=== PATIENT | male | born 1940 | race Caucasian/White ===

== ENCOUNTER 2016-12-29 09:28 | Day surgery (SDC) | payer MEDICARE, OTHER ==
[~2016-12-29] VITALS: Ht 185.4 cm; Wt 98.0 kg
[~2016-12-29 09:28] MED LIST: AML2.5T PO; APIX5TAB PO; ASP81TEC PO; ATOR40TA70 PO; ATOR80TA2 PO; CEPH500C PO; CHOL100011 PO; CHOL200014 PO; CIPR-225 PO; CLIN300C11 PO; CYAN100053 IJ; DILT240C90 PO; DONE10TA41 PO; GABA-488 PO; HYDR-3730 PO; HYDR-3820 PO; MAGN400C PO; MAGN400T6 PO; MEMA10TA PO; METF500T4 PO; METF850T PO; METF850T2 PO; METFOR850T PO; MTF500T PO; MULT-642 PO; MUPI22OI2 TOP; MV-M1TAB38 PO; PENT400T2 PO; PREG50C PO; PREG50CA2 PO; SITA100T PO; SULF1TAB35 PO; TAMS0.4C2 PO; TEMA15CA PO; TMZP15C PO; TRAM50TA2 PO; ZOLP5TAB7 PO
--- OUTSIDE RECORDS SUMMARY | 2016-12-29 09:31 | XMS REPORT | Continuity of Care Document ---
Author Author [facility] Organization [facility] Address Unknown Phone Unavailable Care Team Providers Care Well Driller Name Role Phone LAINE WEBER DO PCP Insurance Providers Payer Name Policy Number Subscriber Name Relationship Wps Medicare [id number] Martine Ragsdale 17 Self / Same As Patient [facility] [id number] Diana Ragsdale A 01 Advance Directives Directive Response Recorded Date/Time Advance Directives Yes 04/10/15 8:39am Health Care Power of Math Interventionist Yes 04/10/15 8:39am Organ Donor No 04/10/15 8:39am Resuscitation Status Full Code 04/10/15 8:39am Problems No known problems or medical conditions. Medications Medication Dose Route Sig Days/Qty Instructions Order Date Discontinued Date Status Atorvastatin Calcium 40 Mg PO 11/21/12 01/21/14 Discontinued Metformin HCl (Glucophage) 1 Each PO THREE TIMES DAILY WITH MEALS 06/2612/31/13 Discontinued Magnesium Oxide 400 Mg PO DAILY 11/21/12 01/21/14 Discontinued Donepezil Hcl 10 Mg PO BEDTIME 11/21/12 Active Sitagliptin Phosphate 100 Mg PO DAILY 11/21/12 Active Temazepam 15 Mg PO BEDTIME 11/21/12 Active Aspirin 81 Mg PO DAILY 11/21/12 Active Pregabalin 50 Mg PO BEDTIME 12/31/13 Active Memantine 1 Each PO TWICE A DAY 12/31/13 01/21/14 Discontinued Metformin HCl 850 Mg PO THREE TIMES A DAY 12/31/13 01/21/14 Discontinued Metformin HCl 850 Mg PO DAILY TAKES 1 (850MG) TABLET EVERY MORNING AND TAKES 2 (850MG) TABLETS AT 01/21/14 04/02/15 Discontinued Amlodipine Besylate 2.5 Mg PO DAILY 01/21/14 Active Cholecalciferol 1,000 Unit PO TWICE A DAY 01/21/14 04/02/15 Discontinued Cyanocobalamin (Vitamin B 12 Injecting) 1,000 Mcg IJ MONTHLY ON 01/21/14 04/02/15 Discontinued Metformin HCl 850 Mg PO THREE TIMES A DAY 01/21/14 Active Atorvastatin Calcium 40 Mg PO DAILY 01/21/14 Active Magnesium Oxide 400 Mg PO DAILY 01/21/14 Active Pentoxifylline 400 Mg PO THREE TIMES A DAY 01/21/14 Active Memantine 10 Mg PO TWICE A DAY 04/02/15 Active Hydrocodone/Acetaminophen 1 Each PO EVERY 4HRS For Pain 28 Qty Active Social History Social History Problem Response Recorded Date/Time Alcohol Use Denies Use 04/10/2015 8:39am Recreational Drug Use No 04/10/2015 8:39am Recent Foreign Travel No 04/10/2015 8:39am Smoking Status Never a Smoker 04/10/2015 8:40am Query Response Start Date Stop Date Smoking Status Never a Smoker Hospital Discharge Instructions No hospital discharge instructions. Plan of Care No plan of care. Functional Status No functional status results. Allergies, Adverse Reactions, Alerts Allergen Type Severity Reaction Status Last Updated No Known Allergies Allergy Unknown Active 01/03/06 Immunizations Name Given Type Date of Pneumonia Vaccine 01/12/13 Historical Date of Influenza Vaccine 07/15/13 Historical Vital Signs Acute Vital Signs Vital Response Date/Time Temperature (Fahrenheit) 96.7 degrees F (97.6 - 99.5) Temperature (Calculated Celsius) 35.95510 degrees C (36.4 - 37.5) Temperature Source Temporal Pulse Rate (adult) 63 bpm (60 - 90) Respiratory Rate 18 bpm (12 - 24) O2 Sat by Pulse Oximetry 96 % (88 - 100) Blood Pressure 143/85 mm Hg Pain Pain Intensity 0 Height (Feet) 6 feet Height (Inches) 1.00 inches Height (Calculated Centimeters) 185.498207 cm Weight (Pounds) 213 pounds Weight (Calculated Grams) 05706.176 gm Weight (Calculated Kilograms) 96.099202 kilograms Calculated BMI 24.61 Results Laboratory Results Test Name Result Units Flags Reference Collection Date/Time Result Date/ Time Comments Glucometer 134 MG/DL H 70-110 04/10/2015 9:29am 04/10/2015 9:44am Procedures Procedure Status Date Provider(s) Correction of hammer toe completed 04/10/15 KEVIN DE LEON DPM Encounters Encounter Location Date/Time Registered Surgical Day Care [facility] 04/10/15 7:30am Registered Clinic [facility] 04/02/15 11:30am
--- OUTSIDE RECORDS SUMMARY | 2016-12-29 09:31 | XMS REPORT | Continuity of Care Document ---
Author Author [facility] Organization [facility] Address Unknown Phone Unavailable Care Team Providers Care Casing Soaker Name Role Phone LAINE WEBER DO PCP Insurance Providers Payer Name Policy Number Subscriber Name Relationship Wps Medicare [id number] Martine Ragsdale 17 Self / Same As Patient [facility] [id number] Diana Ragsdale A 01 Advance Directives Directive Response Recorded Date/Time Advance Directives Yes 04/10/15 8:39am Health Care Power of Labor Arbitrator Hearing Office Yes 04/10/15 8:39am Organ Donor No 04/10/15 [...] F (97.6 - 99.5) Temperature (Calculated Celsius) 35.79787 degrees C (36.4 - 37.5) Temperature Source Temporal Pulse Rate (adult) 63 bpm (60 - 90) Respiratory Rate 18 bpm (12 - 24) O2 Sat by Pulse Oximetry 96 % (88 - 100) Blood Pressure 143/85 mm Hg Pain Pain Intensity 0 Height (Feet) 6 feet Height (Inches) 1.00 inches Height (Calculated Centimeters) 185.650162 cm Weight (Pounds) 213 pounds Weight (Calculated Grams) 18109.176 gm Weight (Calculated Kilograms) 96.749384 kilograms Calculated BMI 24.61 Results Laboratory Results Test Name Result Units Flags Reference Collection Date/Time Result Date/ Time Comments Glucometer 134 MG/DL H 70-110 04/10/2015 9:29am 04/10/2015 9:44am Procedures Procedure Status Date Provider(s) Correction of hammer toe completed 04/10/15 KEVIN DE LEON DPM Encounters Encounter Location Date/Time Registered Surgical Day Care [facility] 04/10/15 7:30am Registered Clinic [facility] 04/02/15 11:30am
[2016-12-29] MEDS ORDERED: LIDOCAINE 1% INJ 20 ML (XYLOCAINE) VIAL ONE (09:45)
[2016-12-29 10:04] VITALS: BP 138/76
--- NOTE | 2016-12-30 13:52 | DISCHARGE SUMMARY ---
PROCEDURE PHYSICIAN: JAMIL ZEPEDA REVEAL DEVICE IMPLANTATION REPORT DATE OF PROCEDURE: 12/29/2016 REFERRING PHYSICIAN: Dr. Aceves BRIEF HISTORY: Mr. Castellano is a 76-year-old just gentleman with history of paroxysmal atrial fibrillation/flutter. He had had ablation done in the past. The patient was seen in the office, appeared to have frequent palpitation episode of atrial fibrillation and short runs. A Holter monitor was done in the past. I am planning to proceed with Reveal device implantation with close monitoring for the atrial fibrillation burden with consideration to referral again for another ablation. PROCEDURE NOTE: After explaining the procedure to the patient, all pros and cons were explained. All questions were answered. No sedation was needed. The patient was placed in the holding area. Local anesthesia applied. A small skin incision was made and then a Reveal Linq device was implanted subcutaneously [employer] with serial number [id number]. Manual pressure applied Dermabond applied, hemostasis achieved. No complication noted. CONCLUSION: Successful reveal device implantation with no complications FINAL DIAGNOSIS: 1. Paroxysmal atrial fibrillation. 2. Coronary artery disease. 3. Hypertension. 4. Hyperlipidemia, Job ID: [id number] Dictated Date: 12/29/2016 11:25:12 Mold Tooling Technician Date: 12/30/2016 13:50:46/[email or web address]
== END 2016-12-29 13:53 | disposition home or self-care (01) ==
LOC: CATH 09:28
PROVIDERS: ATTEND Internal Medicine Cardiovascular Disease
DX: I48.0 Paroxysmal atrial fibrillation (principal); I25.10 Atherosclerotic heart disease of native coronary artery without angina pectoris; I10 Essential (primary) hypertension; E78.5 Hyperlipidemia, unspecified; E11.9 Type 2 diabetes mellitus without complications; Z79.01 Long term (current) use of anticoagulants; Z79.899 Other long term (current) drug therapy; Z95.1 Presence of aortocoronary bypass graft
CPT/HCPCS: 33282; 82962

== ENCOUNTER 2017-01-28 10:36 | Day surgery (SDC) | payer MEDICARE, OTHER ==
[2017-01-28] VITALS (11 sets, daily range): BP systolic 126–157; BP diastolic 65–83
[~2017-01-28] VITALS: Ht 185.4 cm; Wt 98.0 kg
--- OUTSIDE RECORDS SUMMARY | 2017-01-28 10:40 | XMS REPORT | Continuity of Care Document ---
Author Author [facility] Organization [facility] Address Unknown Phone Unavailable Care Team Providers Care Bit Setter Name Role Phone PCP Unavailable Source Comments Some departments are not documenting in the electronic medical record. If you do not see the information that you expected, contact Release of Information in the Health Information Management department at [phone] for further assistance in locating additional records.[facility] Active Allergies and Adverse Reactions No Known Allergies Current Medications Not on file Active Problems Not on file Most Recent Encounters Date Type Specialty Providers Description 01/27/2017 Documentation Cardiology Keesha Camacho Records Request - Sindhu Meng MD/ [facility] in [place], [place] (F) [phone] 01/27/2017 Documentation Cardiology Keesha Camacho Records Request - Sonia Aceves MD/ [facility] (F) [phone] 01/27/2017 Patient Profile Cardiology Keesha Camacho New Patient - A-Fib/flutter Social History Tobacco Use Types Packs/Day Years Used Date Never Smoker Smokeless Tobacco: Never Used Alcohol Use Drinks/Week oz/Week Comments No Plan of Care Date Type Specialty Providers Description 02/09/2017 Appointment Cardiology Dalton Holbrook MD [address] [facility] [address] [place] [address] [phone] (Fax) 02/09/2017 Appointment Cardiology Dalton Holbrook MD [address] [facility] [address] [place] [address] [phone] (Fax) Health Maintenance Due Date Last Done Comments Physical (Comprehensive) 1947 Exam Pertussis Vaccine 1950 Tetanus Vaccine 1956 Shingles Vaccine 1999 Prevnar/Pneumovax (#1) 2004 Influenza Vaccine 07/15/2017 Results from Last 3 Months Not on file
--- OUTSIDE RECORDS SUMMARY | 2017-01-28 10:41 | XMS REPORT | Continuity of Care Document ---
Author Author [facility] Organization [facility] Address Unknown Phone Unavailable Care Team Providers Care Kettle Coordinator Name Role Phone PCP Unavailable Source Comments Some departments are not documenting in the electronic medical record. If you do not see the information that you expected, contact Release of Information in the Health Information Management department at [phone] for further assistance in locating additional records.[facility] Active Allergies and Adverse Reactions No Known Allergies Current Medications Not on file Active Problems Not on file Most Recent Encounters Date Type Specialty Providers Description 01/27/2017 Documentation Cardiology Keesha Camacho Records Request - Sindhu Meng MD/ [facility] in [place], [place] (F) [phone] 01/27/2017 Documentation Cardiology Keesha Camacho Records Request - Sonia Aceves MD/ [facility] (F) [phone] 01/27/2017 Patient Profile Cardiology Keesha Camacho New Patient - A-Fib/flutter Social History Tobacco Use Types Packs/Day Years Used Date Never Smoker Smokeless Tobacco: Never Used Alcohol Use Drinks/Week oz/Week Comments No Plan of Care Date Type Specialty Providers Description 02/09/2017 Appointment Cardiology Dalton Holbrook MD [address] [facility] [address] [place] [address] [phone] (Fax) 02/09/2017 Appointment Cardiology Dalton Holbrook MD [address] [facility] [address] [place] [address] [phone] (Fax) Health Maintenance Due Date Last Done Comments Physical (Comprehensive) 1947 Exam Pertussis Vaccine 1950 Tetanus Vaccine 1956 Shingles Vaccine 1999 Prevnar/Pneumovax (#1) 2004 Influenza Vaccine 07/15/2017 Results from Last 3 Months Not on file
[2017-01-28] MEDS ORDERED: NS IV 1000 ML 1,000 ML ONE (10:58)
[2017-01-28] MEDS ORDERED: LIDOCAINE 1% INJ 20 ML (XYLOCAINE) VIAL ONE (10:58)
[2017-01-28] MEDS ORDERED: HEParin (CATH LAB) 2,000 ML IV ONE (10:59)
[2017-01-28 11:40] LABS: MEAN PLATELET VOLUME 9.2 FL (7.4-10.4); RED BLOOD COUNT 4.61 10^6/uL (4.35-5.85); RED CELL DISTRIBUTION WIDTH 14.4 % (10.0-14.5); WHITE BLOOD COUNT 13.2 10^3/uL (4.3-11.0)
[2017-01-28 11:43] LABS: BILIRUBIN,URINE NEGATIVE (NEGATIVE); KETONES,URINE NEGATIVE (NEGATIVE); LEUKOCYTE ESTERASE ,URINE NEGATIVE (NEGATIVE); NITRITE,URINE NEGATIVE (NEGATIVE); PH,URINE 5 (5-9); PROTEIN,URINE NEGATIVE (NEGATIVE); UROBILINOGEN,URINE NORMAL (NORMAL)
[2017-01-28 11:54] LABS: PROTHROMBIN TIME PATIENT 12.4 SEC (12.2-14.7)
[2017-01-28] MEDS ORDERED: NS IV 1000 ML 1,000 ML IV SCH ×2 (11:55→13:28)
--- NOTE | 2017-01-28 11:56 | Diagnostic Imaging Report ---
Portable upright radiograph of the chest. INDICATION: Peripheral arterial disease. FINDINGS: The lungs are clear. The heart size is mildly prominent. CABG changes and sternotomy wires are seen. There is a lasting room machine operator projecting over the left chest wall. No effusion or pneumothorax. IMPRESSION: No acute process. Dictated by: Dictated on workstation # [id number]
[2017-01-28 11:59] LABS: SQUAMOUS EPITHELIAL CELL,UR RARE /HPF
[2017-01-28 12:03] LABS: ALANINE AMINOTRANSFERASE 17 U/L (0-55); ANION GAP 10 MMOL/L (5-14); ASPARTATE AMINO TRANSFERASE 17 U/L (5-34); BILIRUBIN,TOTAL 0.4 MG/DL (0.1-1.0); BLOOD UREA NITROGEN 11 MG/DL (7-18); BUN/CREATININE RATIO 11; CALCIUM 8.9 MG/DL (8.5-10.1); CARBON DIOXIDE 23 MMOL/L (21-32); CHLORIDE 107 MMOL/L (98-107); CHOLESTEROL 183 MG/DL (< 200); CREATININE SERUM 0.99 MG/DL (0.60-1.30); DIRECT LDL 134 MG/DL (1-129); GFR ESTIMATED > 60; GLUCOSE 102 MG/DL (70-105); POTASSIUM 4.2 MMOL/L (3.6-5.0); SODIUM 140 MMOL/L (135-145); TOTAL PROTEIN 6.6 G/DL (6.4-8.2); TRIGLYCERIDES 58 MG/DL (<150); VLDL CHOLESTEROL 12 MG/DL (5-40)
[2017-01-28] MEDS ORDERED: CHOL10007 PO ×2 (12:16)
[2017-01-28] MEDS ORDERED: MAGN500T PO (12:16)
[2017-01-28] MEDS ORDERED: CNC1KV IJ (12:16)
[2017-01-28] MEDS ORDERED: HYDR-3820 PO (12:16)
[2017-01-28] MEDS ORDERED: APIX5TAB PO (12:16)
[2017-01-28] MEDS ORDERED: DILT240C90 PO (12:16)
[2017-01-28] MEDS ORDERED: INSU100I29 SQ (12:16)
[2017-01-28] MEDS ORDERED: METF500T8 PO (12:16)
[2017-01-28] MEDS ORDERED: fentaNYL INJECTION 100 MCG/2 ML AMP ONE (12:22)
[2017-01-28] MEDS ORDERED: MIDAZOLAM 5 MG/5 ML (VERSED) VIAL ONE (12:22)
--- NOTE | 2017-01-28 12:38 | Cardiac Procedure Note-CS/ASA ---
Pre-Procedure Note Pre-Op Procedure Note H&P Reviewed The H&P was reviewed, patient examined and no changes noted. Date H&P Reviewed: Jan 28, 2017 Time H&P Reviewed: 12:38 Conscious Sedation Pre-Proced Time Reviewed: 12:38 ASA Class: 3 Airway Mallampati Classification: ([place] appropriate class) I. II. III, IV Lungs Heart ASA score ASA 1: a normal healthy patient ASA 2: a patient with a mild systemic disease (mid diabetes, controlled hypertension, obesity x ASA 3: a patient with a severe systemic disease that limits activity (angina , COPD, prior Myocardial infarction) ASA 4: a patient with an incapacitating disease that is a constant threat to life (CHF, renal failure) ASA 5: a moribund patient not expected to survive 24 hrs. (ruptured aneurysm) ASA 6: a declared brain patient whose organs are being harvested. For emergent operations, add the letter E after the classification Grade 3 Sedation Plan: Analgesia, Amnesia, Plan communicated to team members, Discussed options with patient/fam, Discussed risks with patient/fam Note The patient is an appropriate candidate to undergo the planned procedure, sedation, and anesthesia. The patient immediately re-assessed prior to indication. JAMIL ZEPEDA MD Jan 28, 2017 12:38
[2017-01-28] MEDS ORDERED: HEParin 1000 UNIT/ML (10ML VIAL) FOR BOLUS ONE (13:03)
[2017-01-28] MEDS ORDERED: NITROGLYCERIN DRIP 25 MG/D5W 250 ML IV ONE (13:12)
[2017-01-28] MEDS ORDERED: PATIENT MAY USE OWN MEDS, ALL PO SCH (13:30)
--- NOTE | 2017-01-28 13:32 | Discharge Inst-Post CATH ---
Discharge Inst-CATH Post Cardiac Cath D/C Inst Follow Up/Plan Hold Metformin for [address] Meng's office in 2-4 weeks CARDIAC CATH DISCHARGE INSTRUCTIONS *Hold Metformin for 48 hours post heart cath. ACTIVITY * Go Home directly and rest. * Limit activity of the leg (or wrist if it was used) for 7 days including aerobics, swimming, jogging, bicycling, etc. * Restrict stair-climbing for 7 days if possible, if not, climb up with your non -cath leg, then bring together on the same step. * Avoid lifting, pushing, pulling or excessive movement of the affected extremity for 7 days. * Customary sexual activity may be resumed after 2 days-use caution not to use a position that strains or causes pain to the affected extremity. * No driving for 24 hours. * NO SMOKING. * Avoid straining for bowel movements for 7 days. * Gentle walking on level ground is allowed. * Returning to work will depend on the type of procedure and the results. Your doctor will discuss this with you. CALL YOUR DOCTOR FOR ANY OF THE FOLLOWING: *If bleeding from the puncture site occurs- Apply gentle pressure to site with clean cloth and call your doctor or EMS. * If a knot or lump forms under the skin, increases in size, or causes pain. * If bruising appears to be worsening or moving further down your leg instead of disappearing. * Temperature above 101 F. CARE OF YOUR GROIN INCISION; * Bruising or purple discoloration of the skin near the puncture site is common. * You may shower only, no bathtub bathing for 5 days. Be careful to avoid slipping as your leg may feel stiff. * If a closure device was used on your femoral artery, please see the attached guide regarding care of the device and your leg. * REMOVE the dressing from your groin the next day after your procedure in the shower. CARE OF YOUR WRIST INCISION; * Bruising or purple discoloration of the skin near the puncture site is common. * You may shower. * DO NOT submerge wrist. * Remove dressing in 24 hours. JAMIL MENG MD Jan 28, 2017 13:32
--- NOTE | 2017-01-28 21:43 | DISCHARGE SUMMARY ---
REFERRING PHYSICIAN: Dr. Sonia Aceves INDICATION: Peripheral arterial disease. BRIEF HISTORY: Mr. Castellano is a 76-year-old gentleman with peripheral arterial disease and coronary artery disease, has been having lower extremity pain which has been worsening. He had a borderline abnormal ROSELIA. I decided to proceed with peripheral angiogram, possible angioplasty. PROCEDURE NOTE: After explaining the procedure to the patient, all pros and cons were explained, all questions were answered. I placed a 6-Czech sheath in the left femoral artery. Pigtail catheter advanced to the abdominal aorta. Abdominal aortogram with runoff was done. Then I used a crossover catheter and then it exchanged it into a straight catheter. The straight catheter was advanced to the popliteal artery in the right lower extremity and I performed 3 different angiogram to the right lower extremity below the trifurcation to evaluate the anatomy. Then I flushed straight catheter with saline and evaluated pressure pullback to the iliac artery. At that point, I did another runoff to the left lower extremity to evaluate the arteries below the knee. I performed the runoff twice. At that point, I finished the procedure, sheath was removed. Mynx device deployed. Hemostasis achieved. FINDINGS: HEMODYNAMICS: The right lower extremity pullback popliteal artery pressure was 116/53, mid SFA was 125/53, common femoral 130/56. ANATOMY: Abdominal aortogram with bilateral runoff and the selective angiogram was done separately. Findings suggestive of moderate disease in the SFA bilaterally. Severe disease in the anterior tibial and posterior tibial in the right lower extremity at multiple segments, getting filled by collaterals. On the left side, also occlusion of the anterior and posterior tibial, getting filled by collaterals. The decision was made to treat it medically. IN CONCLUSION: 1. Severe disease involving multiple segments in the anterior and posterior tibial of the right lower extremity, the popliteal artery is patent and filling by collaterals the distal arteries. The patient is having cramps in the calf but no acute ischemic foot. I will try conservative management. 2. Acute severe disease at the anterior and posterior tibial in the left lower extremity at multiple segments, getting filled by collateral from the popliteal artery. 3. Moderate disease in the SFA bilaterally. 4. Normal abdominal aorta and bifurcation with no dissection or aneurysm. DISCUSSION AND RECOMMENDATION: Mr. Castellano has significant disease at a long segment, feasible to intervention but the restenosis rate is high. The patient's ROSELIA is suggestive of adequate flow through the collateral of the popliteal artery. I am hesitant to proceed with intervention at this time due to the lack of lack of critical limb ischemia. If the patient develops any ulcer or has critical lymph ischemia, will attempt intervention of those arteries. FINAL DIAGNOSES: 1. Peripheral arterial disease. 2. Coronary artery disease. 3. Hypertension. 4. Hyperlipidemia. 5. Diabetes mellitus. Job ID: [id number] Dictated Date: 01/28/2017 13:41:49 Deck Hand Date: 01/28/2017 21:42:06/[email or web address] BE
== END 2017-01-28 18:10 | disposition home or self-care (01) ==
LOC: CATH 10:36 → ICU 14:33 → CATH 18:10
PROVIDERS: ATTEND Internal Medicine Cardiovascular Disease
DX: I70.213 Atherosclerosis of native arteries of extremities with intermittent claudication, bilateral legs (principal); I25.10 Atherosclerotic heart disease of native coronary artery without angina pectoris; I10 Essential (primary) hypertension; E78.5 Hyperlipidemia, unspecified; E11.9 Type 2 diabetes mellitus without complications; Z95.1 Presence of aortocoronary bypass graft; Z79.899 Other long term (current) drug therapy; Z79.01 Long term (current) use of anticoagulants; Z79.84 Long term (current) use of oral hypoglycemic drugs
CPT/HCPCS: 36247; 36415; 71010; 75630; 75774; 80053; 80061; 81000; 85027; 85610; 85730; 87081

== ENCOUNTER → 2017-02-03 | Outpatient (CLI) | payer MEDICARE, OTHER ==
[~2017-02-03] MED LIST changes: +CHOL10007 PO; +CNC1KV IJ; +INSU100I29 SQ; +MAGN500T PO; +METF500T8 PO
[2017-02-03 15:20] LABS: BASOPHILS # (AUTO) 0.1 10^3/uL (0.0-0.1); BASOPHILS % (AUTO) 0 % (0-10); EOSINOPHILS # (AUTO) 0.2 10^3/uL (0.0-0.3); EOSINOPHILS % (AUTO) 2 % (0-10); LYMPHOCYTES # (AUTO) 2.8 X 10^3 (1.0-4.0); LYMPHOCYTES % (AUTO) 25 % (12-44); MEAN CORPUSCULAR HEMOGLOBIN 31 PG (25-34); MEAN CORPUSCULAR HGB CONC 33 G/DL (32-36); MEAN CORPUSCULAR VOLUME 92 FL (80-99); MEAN PLATELET VOLUME 8.9 FL (7.4-10.4); MONOCYTES # (AUTO) 1.1 X 10^3 (0.0-1.0); MONOCYTES % (AUTO) 10 % (0-12); NEUTROPHILS # (AUTO) 7.2 X 10^3 (1.8-7.8); NEUTROPHILS % (AUTO) 63 % (42-75); PLATELET COUNT 317 10^3/uL (130-400); RED BLOOD COUNT 4.28 10^6/uL (4.35-5.85); RED CELL DISTRIBUTION WIDTH 14.1 % (10.0-14.5); WHITE BLOOD COUNT 11.4 10^3/uL (4.3-11.0)
[2017-02-03 15:25] LABS: PATH WILL NEED TO REVIEW SMEAR PATH TO REVIEW
[2017-02-03 15:37] LABS: BAND NEUTROPHILS 1 %; BASOPHILS % (MANUAL) 1 %; EOSINOPHILS % (MANUAL) 3 %; LYMPHOCYTES % (MANUAL) 26 %; NEUTROPHILS % (MANUAL) 62 %
== END ==
LOC: LAB 15:01
PROVIDERS: ATTEND Nurse Practitioner Family
DX: D72.828 Other elevated white blood cell count (principal)
CPT/HCPCS: 36415; 85007; 85027; 85045

== ENCOUNTER 2017-04-05 20:25 | Inpatient (IN) | payer MEDICARE, OTHER ==
[~2017-04-05] VITALS: Ht 198.1 cm; Wt 101.6 kg
[2017-04-05] MEDS ORDERED: NS IV 1000 ML 1,000 ML IV ONE (20:53)
[2017-04-05] MEDS ORDERED: ACETAMINOPHEN 500 MG TAB (TYLENOL) PO ONE (21:00)
[2017-04-05 21:24] LABS: INR 1.1 (0.8-1.4); PROTHROMBIN TIME PATIENT 14.3 SEC (12.2-14.7)
[2017-04-05 21:29] LABS: BASOPHILS # (AUTO) 0.1 10^3/uL (0.0-0.1); BASOPHILS % (AUTO) 1 % (0-10); EOSINOPHILS # (AUTO) 0.1 10^3/uL (0.0-0.3); EOSINOPHILS % (AUTO) 1 % (0-10); LYMPHOCYTES % (AUTO) 17 % (12-44); MEAN CORPUSCULAR HEMOGLOBIN 30 PG (25-34); MEAN CORPUSCULAR HGB CONC 33 G/DL (32-36); MEAN CORPUSCULAR VOLUME 90 FL (80-99); MEAN PLATELET VOLUME 9.7 FL (7.4-10.4); MONOCYTES # (AUTO) 1.5 X 10^3 (0.0-1.0); MONOCYTES % (AUTO) 12 % (0-12); NEUTROPHILS # (AUTO) 8.3 X 10^3 (1.8-7.8); NEUTROPHILS % (AUTO) 70 % (42-75); PLATELET COUNT 330 10^3/uL (130-400); RED BLOOD COUNT 4.38 10^6/uL (4.35-5.85); RED CELL DISTRIBUTION WIDTH 14.9 % (10.0-14.5); WHITE BLOOD COUNT 11.9 10^3/uL (4.3-11.0)
[2017-04-05 21:34] LABS: ALBUMIN 3.9 G/DL (3.2-4.5); BILIRUBIN,TOTAL 0.5 MG/DL (0.1-1.0); CALCIUM 8.8 MG/DL (8.5-10.1); CREATININE SERUM 1.18 MG/DL (0.60-1.30); POTASSIUM 3.9 MMOL/L (3.6-5.0); TOTAL PROTEIN 6.7 G/DL (6.4-8.2)
--- NOTE | 2017-04-05 23:15 | ED General ---
General Chief Complaint: Trauma-Non Activation Stated Complaint: FALL Nursing Triage Note: REPORTS PT FELL THIS EVENING OUTSIDE, UNWITNESSED. STATES UNKNOWN IF PT HIT HEAD. PT HAS HAD COLD SYMPTOMS OVER LAST 3 DAYS AND STARTED ANTIBIOTICS YESTERDAY FROM DR ACEVES. TODAY IS EXPERIENCING INCREASING CONFUSION AND WEAKNESS. Nursing Sepsis Screen: Possible Severe Sepsis Risk Source of Information: Patient, Family Exam Limitations: No Limitations History of Present Illness Time Seen by Provider: 20:42 Initial Comments This 76-year-old and is brought to the emergency room accompanied by his with history of a fall outside in the yard. He was found down on the ground by a family member. Patient denies any injury during the fall or any pain at present. He is uncertain if he struck his head. Family reports he has had a cough recently and was started on amoxicillin after seeing Dr. Aceves in the clinic yesterday. They believe he was lying in the yard for 30-45 minutes before being found this evening. They report increased weakness. Temperature on assessment is 100.7. Cough has been present since Tuesday. Patient does not recall hitting his head but he does take Eliquis because of atrial fibrillation. He has dementia at baseline and is not a very reliable historian. Location Injury Occurred: HOME Allergies and Home Medications Allergies Coded Allergies: Brennen Known Allergies (Verified Allergy, Unknown, 01/03/06) Home Medications Apixaban 5 Mg Tablet, 5 MG PO BID, (Reported) Aspirin 81 Mg Tabec, 81 MG PO DAILY, (Reported) Cholecalciferol (Vitamin D3) 1,000 Unit Capsule, 1,000 UNIT PO DAILY, (Reported) Cholecalciferol (Vitamin D3) 1,000 Unit Capsule, 2,000 UNIT PO HS, (Reported) TAKES 2 (1000 UNIT) CAPSULES Cyanocobalamin 1,000 Mcg/Ml Inj, 1,000 MCG IJ MONTHLY, (Reported) Diltiazem HCl 240 Mg Cap.er.24h, 240 MG PO DAILY, (Reported) Donepezil Hcl 10 Mg Tablet, 10 MG PO HS, (Reported) Gabapentin 300 Mg Capsule, 300 MG PO TID, (Reported) Hydrocodone/Acetaminophen 1 Each Tablet, 0.5 TAB PO Q6H PRN for SEVERE PAIN, ( Reported) Insulin Detemir 100 Unit/1 Ml Insuln.pen, 40 UNIT SQ HS, (Reported) Magnesium Oxide 500 Mg Tablet, 500 MG PO DAILY, (Reported) Memantine Hcl 10 Mg Tablet, 10 MG PO BID, (Reported) Multivitamin 1 Each Tablet, 1 TAB PO DAILY, (Reported) Mv-Mn/FA/Vit K/Lycop/Lut/Zeaxa 1 Each Tablet, 1 TAB PO DAILY, (Reported) Pentoxifylline 400 Mg Tablet.sa, 400 MG PO BID, (Reported) Tamsulosin HCl 0.4 Mg Cap.er.24h, 0.4 MG PO 1800, (Reported) Tramadol HCl 50 Mg Tablet, 50 MG PO Q8H PRN for PAIN, (Reported) Zolpidem Tartrate 5 Mg Tablet, 5 MG PO HS, (Reported) Constitutional: see HPI EENTM: no symptoms reported Respiratory: see HPI Cardiovascular: no symptoms reported Gastrointestinal: no symptoms reported Genitourinary: no symptoms reported Musculoskeletal: no symptoms reported Skin: no symptoms reported Psychiatric/Neurological: See HPI Hematologic/Lymphatic: No Symptoms Reported Immunological/Allergic: no symptoms reported Past Bopshko-Tikurc-Pyzpxg Hx Patient Social History Alcohol Use: Denies Use Recreational Drug Use: No Smoking Status: Former Smoker Former Smoker/When Quit: Jan 21, 1986 2nd Hand Smoke Exposure: No Recent Foreign Travel: No Contact w/Someone Who Travel: No Recent Infectious Disease Expo: No Immunizations Up To Date Tetanus Booster (TDap): Less than 5yrs Date of Pneumonia Vaccine: Jul 15, 2015 Date of Influenza Vaccine: Aug 17, 2016 Seasonal Allergies Seasonal Allergies: No Surgeries HX Surgeries: Yes Surgeries: Cardiac, CABG, Eye Surgery Respiratory Hx Respiratory Disorders: No Cardiovascular Hx Cardiac Disorders: Yes Cardiac Disorders: Atrial Fibrillation, Coronary Artery Disease, High Cholesterol, Hypertension, Peripheral Vascular Neurological Hx Neurological Disorders: Yes Neurological Disorders: Dementia Reproductive System Hx Reproductive Disorders: No Sexually Transmitted Disease: No HIV/AIDS: No Genitourinary Hx Genitourinary Disorders: No Genitourinary Disorders: Benign Prostatic Hyperpl, Prostate Problems Gastrointestinal Hx Gastrointestinal Disorders: No Musculoskeletal Hx Musculoskeletal Disorders: Yes (SPINAL STENOSIS, lumbar region) Musculoskeletal Disorders: Chronic Back Pain Endocrine Hx Endocrine Disorders: Yes Endocrine Disorders: Diabetes, Insulin dep HEENT HX ENT Disorders: Yes (BILAT CATARACTS REMOVED, GLASSES) HEENT Disorders: Cataract Hearing Impairment: Hard of Hearing, Hearing Aide Right, Hearing Aide Left Cancer Hx Cancer: Yes Cancer: Skin, Melanoma Psychosocial Hx Psychiatric Problems: No Integumentary HX Skin/Integumentary Disorder: No Blood Transfusions Hx Blood Disorders: No Family Medical History Significant Family History: Heart Disease, Cancer, Diabetes, Hypertension Family Medial History: Diabetes mellitus 19 MOTHER G8 SISTER FH: bladder cancer G8 SISTER FH: lupus G8 SISTER Physical Exam-Suspected Sepsis Physical Exam Vital Signs Vital Sign - Last 12Hours 04/05/17 04/05/17 20:40 23:21 Temp 100.7 Pulse 92 Resp 18 B/P (MAP) 149/77 Pulse Ox 95 O2 Delivery Room Air Capillary Refill : Less Than 3 Seconds Blood Pressure Mean: 101 General Appearance: No Apparent Distress, WD/WN HEENT: PERRL/EOMI, TMs Normal, Normal ENT Inspection, Pharynx Normal Neck: Full Range of Motion, Normal Inspection, Non Tender, Supple Respiratory: Lungs Clear, Normal Breath Sounds, No Accessory Muscle Use, No Respiratory Distress Cardiovascular: Regular Rate, Rhythm, No Edema, No Murmur Gastrointestinal: Normal Bowel Sounds, Non Tender, Soft Extremity: Normal Capillary Refill, Normal Inspection, No Pedal Edema Neurologic/Psychiatric: Alert, Oriented x3, No Motor/Sensory Deficits, Normal 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, 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 as Tested Skin: normal color, warm/dry, other (feels febrile to the touch) Focused Exam Lactic Acid Level Laboratory Tests Test 04/05/17 20:58 Lactic Acid Level 0.96 MMOL/L (0.50-2.00) Progress/Results/Core Measures Suspected Sepsis Recent Fever Within 48 Hours: Yes Infection Criteria Present: Suspected New Infection New/Unexplained Altered Menta: Yes Sepsis Screen: Possible Severe Sepsis Risk Sepsis Diagnosis: SIRS Temperature:100.1 Pulse: 92 Respiratory Rate: 18 Laboratory Tests 04/05/17 20:58: White Blood Count 11.9H Blood Pressure 149 /77 Mean: 101 Laboratory Tests 04/05/17 20:58: Creatinine 1.18, INR Comment 1.1, Platelet Count 330, Total Bilirubin 0.5 Results/Orders Lab Results Laboratory Tests Test 04/05/17 20:58 04/05/17 23:16 Range/Units White Blood Count 11.9 H 4.3-11.0 10^3/uL Red Blood Count 4.38 4.35-5.85 10^6/uL Hemoglobin 13.1 L 13.3-17.7 G/DL Hematocrit 39 L 40-54 % Mean Corpuscular Volume 90 80-99 FL Mean Corpuscular Hemoglobin 30 25-34 PG Mean Corpuscular Hemoglobin Concent 33 32-36 G/DL Red Cell Distribution Width 14.9 H 10.0-14.5 % Platelet Count 330 130-400 10^3/uL Mean Platelet Volume 9.7 7.4-10.4 FL Neutrophils (%) (Auto) 70 42-75 % Lymphocytes (%) (Auto) 17 12-44 % Monocytes (%) (Auto) 12 0-12 % Eosinophils (%) (Auto) 1 0-10 % Basophils (%) (Auto) 1 0-10 % Neutrophils # (Auto) 8.3 H 1.8-7.8 X 10^3 Lymphocytes # (Auto) 2.0 1.0-4.0 X 10^3 Monocytes # (Auto) 1.5 H 0.0-1.0 X 10^3 Eosinophils # (Auto) 0.1 0.0-0.3 10^3/uL Basophils # (Auto) 0.1 0.0-0.1 10^3/uL Prothrombin Time 14.3 12.2-14.7 SEC INR Comment 1.1 0.8-1.4 Activated Partial Thromboplast Time 34 24-35 SEC Sodium Level 137 135-145 MMOL/L Potassium Level 3.9 3.6-5.0 MMOL/L Chloride Level 103 98-107 MMOL/L Carbon Dioxide Level 23 21-32 MMOL/L Anion Gap 11 5-14 MMOL/L Blood Urea Nitrogen 14 7-18 MG/DL Creatinine 1.18 0.60-1.30 MG/DL Estimat Glomerular Filtration Rate 60 BUN/Creatinine Ratio 12 Glucose Level 166 H 70-105 MG/DL Lactic Acid Level 0.96 0.50-2.00 MMOL/L Calcium Level 8.8 8.5-10.1 MG/DL Total Bilirubin 0.5 0.1-1.0 MG/DL Aspartate Amino Transf (AST/SGOT) 16 5-34 U/L Alanine Aminotransferase (ALT/SGPT) 12 0-55 U/L Alkaline Phosphatase 66 40-136 U/L Total Creatine Kinase 75 30-200 U/L C-Reactive Protein High Sensitivity 3.26 H 0.00-0.50 MG/DL Total Protein 6.7 6.4-8.2 G/DL Albumin 3.9 3.2-4.5 G/DL Urine Color YELLOW Urine Clarity CLEAR Urine pH 6 5-9 Urine Specific [place] 1.020 1.016-1.022 Urine Protein 1+ H NEGATIVE Urine Glucose (UA) NEGATIVE NEGATIVE Urine Ketones NEGATIVE NEGATIVE Urine Nitrite NEGATIVE NEGATIVE Urine Bilirubin NEGATIVE NEGATIVE Urine Urobilinogen NORMAL NORMAL MG/DL Urine Leukocyte Esterase NEGATIVE NEGATIVE Urine RBC (Auto) 1+ H NEGATIVE Urine RBC 0-2 /HPF Urine WBC RARE /HPF Urine Squamous Epithelial Cells 2-5 /HPF Urine Crystals NONE /LPF Urine Bacteria NEGATIVE /HPF Urine Casts NONE /LPF Urine Mucus SMALL H /LPF Urine Culture Indicated NO Micro Results Microbiology 04/05/17 Influenza Types A,B Antigen (MAGGI) - Final, Complete My Orders Orders - OLAYINKA DYER MD Cbc With Automated Diff (04/05/17 20:50) Comprehensive Metabolic Panel (04/05/17 20:50) Lactic Acid Analyzer (04/05/17 20:50) Blood Culture (04/05/17 20:50) Sputum Culture (04/05/17 20:50) Ua Culture If Indicated (04/05/17 20:50) Protime With Inr (04/05/17 20:50) Partial Thromboplastin Time (04/05/17 20:50) Chest 1 View, Ap/Pa Only (04/05/17 20:50) O2 (04/05/17 20:50) Saline Lock/Iv-Start (04/05/17 20:50) Saline Lock/Iv-Start (04/05/17 20:50) Vital Signs Adult Sepsis Patie Q1HR (04/05/17 20:50) Remove Rings In Anticipation O (04/05/17 20:50) Influenza A And B Antigens (04/05/17 20:50) Ct Head/Cervical Spine Wo (04/05/17 20:50) Acetaminophen Tablet (Tylenol Tablet) (04/05/17 21:00) Creatine Kinase (04/05/17 20:52) Ns Iv 1000 Ml (Sodium Chloride 0.9%) (04/05/17 20:53) Hs C Reactive Protein (04/05/17 22:37) Ceftriaxone Injection (Rocephin Injectio (04/06/17 00:00) Medications Given in ED Current Medications Medications Dose Ordered Sig/Yenny Route Start Time Stop Time Status Last Admin Dose Admin Acetaminophen 1,000 mg ONCE ONCE PO 04/05/17 21:00 04/05/17 21:01 DC 04/05/17 22:49 1,000 MG Sodium Chloride 1,000 ml @ 0 mls/hr Q0M ONCE IV 04/05/17 20:53 04/05/17 20:54 DC 04/05/17 22:50 0 MLS/HR Vital Signs/I&O Vital Sign - Last 12Hours 04/05/17 04/05/17 04/05/17 04/06/17 20:40 22:49 23:21 00:18 Temp 100.7 100.1 98.8 99.1 Pulse 92 89 88 Resp 18 20 16 B/P (MAP) 149/77 146/75 Pulse Ox 95 99 O2 Delivery Room Air Room Air Intake and Output 04/06/17 00:00 Intake Total 1000 ml Balance 1000 ml Capillary Refill : Less Than 3 Seconds Blood Pressure Mean: 101 Progress Note : Time: 23:19 Progress Note Sepsis workup has been in progress. Patient received a liter of IV fluids and Tylenol. CT of the head and C-spine was obtained due to history of fall and anticoagulation use. No acute injuries were identified. Chest x-ray showed no definite consolidation or infiltrate. UA is still pending. Disposition will be determined once UA is evaluated. Diagnostic Imaging Diagonstic Imaging: Xray Plain Films/CT/US/NM/MRI: chest Comments Single view chest x-ray viewed by me. Report not yet available. Compared with prior. There appears to be atelectasis in the by basilar region with no acute infiltrate or consolidation. Departure Communication Time/Spoke to Admitting Phy: 23:55 Communication Case reviewed with Dr. Aceves who is concerned patient may have an occult pneumonia not picked up by the chest x-ray given his fever and cough. She requests that he be admitted and started on Rocephin and azithromycin. Rocephin was ordered to initiate in the emergency room. Family is agreeable as is patient. Impression Impression: Primary Impression: Fever Qualified Codes: R50.9 - Fever, unspecified Additional Impressions: Fall on same level Qualified Codes: W18.30XA - Fall on same level, unspecified, initial encounter Generalized weakness Cough Dementia Qualified Codes: F03.90 - Unspecified dementia without behavioral disturbance Chronic anticoagulation Atrial fibrillation Qualified Codes: I48.2 - Chronic atrial fibrillation Disposition: 09 ADMITTED INPATIENT Condition: Improved Decision to Admit Reason: Admit from ER (General) Decision to Admit/Date: April 05, 2017 Time/Decision to Admit Time: 23:55 Departure-Patient Inst. Referrals: SHEILA ACEVES MD (PCP/Family) Primary Care Physician OLAYINKA DYER MD April 05, 2017 23:15
[2017-04-05 23:20] LABS: BILIRUBIN,URINE NEGATIVE (NEGATIVE); KETONES,URINE NEGATIVE (NEGATIVE); LEUKOCYTE ESTERASE ,URINE NEGATIVE (NEGATIVE); NITRITE,URINE NEGATIVE (NEGATIVE); PH,URINE 6 (5-9); PROTEIN,URINE 1+ (NEGATIVE); UROBILINOGEN,URINE NORMAL (NORMAL)
[2017-04-05 23:30] LABS: WBC,URINE RARE /HPF
[2017-04-06] VITALS (9 sets, daily range): BP systolic 117–143; BP diastolic 62–74
[2017-04-06] MEDS ORDERED: cefTRIAXone INJECTION 1,000 MG in NS (IVPB) 50 ML IV ONE ×2
[2017-04-06] MEDS ORDERED: AZITHROMYCIN INJECTION 500 MG in NS (IVPB) 250 ML IV ONE (01:08)
[2017-04-06] MEDS ORDERED: ONDANSETRON 4 MG/2 ML (SDV) Z0FRAN IV PRN (01:15)
[2017-04-06] MEDS ORDERED: ACETAMINOPHEN 500 MG TAB (TYLENOL) PO PRN (01:15)
[2017-04-06] MEDS ORDERED: NS IV 1000 ML 1,000 ML IV SCH (01:15)
[2017-04-06] MEDS ORDERED: ENOXAPARIN 40 MG/0.4 ML (LOVENOX) SYR SC SCH (01:15)
[2017-04-06] MEDS ORDERED: RT-ALBUTEROL SULF 2.5 MG/3 ML PRE-MIX VIAL IH PRN (01:45)
--- NOTE | 2017-04-06 07:11 | Diagnostic Imaging Report ---
EXAM: CHEST 1 VIEW, AP/PA ONLY INDICATION: Cough. Fever. COMPARISON: Chest radiograph 02/01/2017. FINDINGS: Low lung volumes accentuate the heart size and pulmonary vascularity. Mild atelectasis and/or infiltrate in the lung bases. No pleural effusion or pneumothorax. Sternotomy. Loop recorder. No acute osseous findings. IMPRESSION: 1. Shallow inspiration accentuates heart size and pulmonary vascularity which is likely normal. 2. Mild atelectasis and/or infiltrate in the lung bases which is also presumably due to the low lung volumes. Dictated by: Dictated on workstation # [id number]
--- NOTE | 2017-04-06 07:20 | Diagnostic Imaging Report ---
PROCEDURE: CT head and CT cervical spine without contrast. TECHNIQUE: Multiple contiguous axial images were obtained through the brain and cervical spine without the use of intravenous contrast. Sagittal and coronal reformations through the cervical spine were then performed. INDICATION: Fall. Abrasion to chin and left forehead. COMPARISON: CT head and cervical spine without contrast 05/20/2016. FINDINGS: CT head: Moderate generalized cerebral and cerebellar parenchymal volume loss. Moderate leukoaraiosis. No intracranial hemorrhage, mass effect, hydrocephalus, or extra-axial fluid collections. Osseous structures are intact. The visualized paranasal sinuses and mastoids are clear. Orbits are unremarkable. CT cervical spine: Mild anterior displacement and posterior angulation of the dens appear chronic. There is a lucency through the base of the dens which was not present on the prior exam. Minimal anterolisthesis of C3 on C4. Alignment is otherwise unremarkable. Vertebral body heights are maintained. Moderate/ advanced degenerative endplate changes. No high-grade spinal canal narrowing on this noncontrast exam. Uncovertebral and facet arthropathy contribute to scattered moderate neural foraminal narrowing. IMPRESSION: 1. No acute intracranial CT findings. 2. Chronic-appearing fracture deformity through the base of the dens. There is a new lucency in the base of the dens concerning for minimally displaced type II odontoid fracture. Report was called/faxed to [facility] in [place], [place] @ 7:18 AM/asha. Discrepancy with [facility] report. Dictated by: Dictated on workstation # [id number]
[2017-04-06] MEDS: DILTIAZEM 240 MG (CARDIZEM CD) CAP PO SCH (08:40)
[2017-04-06] MEDS: APIXABAN 5 MG (ELIQUIS) TABLET PO SCH ×2 (08:40→20:52)
--- NOTE | 2017-04-06 08:47 | History & Physicial ---
History of Present Illness History of Present Illness Reason for visit/HPI pt is a 76 y/o male who is known to me from clinic. he presented to the hospital after falling at home. he has been seen by dr. glasgow for his lower extremity neuropathy and weakness. he was sent to [place] for physical therapy, but has yet to participate due to illness. he was admitted to the hospital with weakness, pneumonia, and monitoring after a fall. Date of Admission April 05, 2017 at 23:59 I consulted on this patient on 04/06/17 08:44 Attending Physician Sheila Aceves MD Admitting Physician Sheila Aceves MD Consult Allergies and Home Medications Allergies Coded Allergies: NKANo Known Allergies (Verified Allergy, Unknown, 01/03/06) Home Medications Amoxicillin 500 Mg Capsule, 500 MG PO TID, (Reported) FILLED 04/04/17 #30 FOR A 10 DAY THERAPY Apixaban 5 Mg Tablet, 5 MG PO BID, (Reported) Aspirin 81 Mg Tabec, 81 MG PO DAILY, (Reported) Cholecalciferol (Vitamin D3) 1,000 Unit Capsule, 1,000 UNIT PO DAILY, (Reported) Cholecalciferol (Vitamin D3) 1,000 Unit Capsule, 2,000 UNIT PO HS, (Reported) TAKES 2 (1000 UNIT) CAPSULES Cyanocobalamin 1,000 Mcg/Ml Inj, 1,000 MCG IJ MONTHLY, (Reported) Diltiazem HCl 240 Mg Cap.er.24h, 240 MG PO HS, (Reported) Donepezil HCl 10 Mg Tablet, 10 MG PO HS, (Reported) Ferrous Sulfate 325 Mg Tablet, 325 MG PO DAILY, (Reported) Gabapentin 300 Mg Capsule, 300 MG PO HS, (Reported) Insulin Detemir 100 Unit/1 Ml Insuln.pen, 30 UNIT SQ HS, (Reported) Magnesium Oxide 500 Mg Tablet, 500 MG PO DAILY, (Reported) Memantine HCl 10 Mg Tablet, 10 MG PO BID, (Reported) Metformin HCl 500 Mg Tab.er.24h, 500 MG PO BID, (Reported) Multivitamin 1 Each Tablet, 1 TAB PO DAILY, (Reported) Mv-Mn/FA/Vit K/Lycop/Lut/Zeaxa 1 Each Tablet, 1 TAB PO DAILY, (Reported) Pentoxifylline 400 Mg Tablet.er, 400 MG PO BID, (Reported) Potassium 99 Mg Tablet, 99 MG PO DAILY, (Reported) Tamsulosin HCl 0.4 Mg Cap.er.24h, 0.4 MG PO DAILY@1800, (Reported) Tramadol HCl 50 Mg Tablet, 50 MG PO Q8H PRN for PAIN, (Reported) Zolpidem Tartrate 5 Mg Tablet, 5 MG PO HS, (Reported) Past Ufqsisf-Uzfeni-Yvtkvi Hx Patient Social History Marrital Status: Living Status: lives at home with spouse Employed/Student: retired Alcohol Use: Denies Use Recreational Drug Use: No Smoking Status: Former Smoker Former smoker/When Quit: Jan 21, 1986 2nd Hand Smoke Exposure: No Physical Abuse Screen: No Sexual Abuse: No Recent Foreign Travel: No Contact w/other who traveled: No Recent Infectious Disease Expo: No Immunizations Up To Date Tetanus Booster (TDap): Less than 5yrs Date of Pneumonia Vaccine: Jul 15, 2015 Date of Influenza Vaccine: Aug 17, 2016 Seasonal Allergies Seasonal Allergies: No Surgeries HX Surgeries: Yes Surgeries: Cardiac, CABG, Eye Surgery Respiratory Hx Respiratory Disorders: No Cardiovascular Hx Cardiovascular Disorders: Yes Cardiac Disorders: Atrial Fibrillation, Coronary Artery Disease, High Cholesterol, Hypertension, Peripheral Vascular Neurological Hx Neurological Disorders: Yes Neurological Disorders: Dementia Reproductive System Hx Reproductive Disorders: No Sexually Transmitted Disease: No HIV/AIDS: No Genitourinary Hx Genitourinary Disorders: No Genitourinary Disorders: Benign Prostatic Hyperpl, Prostate Problems Gastrointestinal Hx Gastrointestinal Disorders: No Musculoskeletal Hx Musculoskeletal Disorders: Yes (SPINAL STENOSIS, lumbar region) Musculoskeletal Disorders: Chronic Back Pain Endocrine Hx Endocrine Disorders: Yes Endocrine Disorders: Diabetes, Insulin dep HEENT HX ENT Disorders: Yes (BILAT CATARACTS REMOVED, GLASSES) HEENT Disorders: Cataract Hearing Impairment: Hard of Hearing, Hearing Aide Right, Hearing Aide Left Cancer Hx Cancer: Yes Cancer: Skin, Melanoma Psychosocial Hx Psychiatric Problems: No Integumentary HX Skin/Integumentary Disorder: No Blood Transfusions Hx Blood Disorders: No Reviewed Nursing Assessment Reviewed/Agree w Nursing PMH: Yes Family Medical History Significant Family History: Heart Disease, Cancer, Diabetes, Hypertension Family Hx: Diabetes mellitus 19 MOTHER G8 SISTER FH: bladder cancer G8 SISTER FH: lupus G8 SISTER Constitutional: chills, No fever, malaise, weakness EENTM: hearing loss, No hoarseness, No throat swelling Respiratory: cough, No dyspnea on exertion, short of breath Cardiovascular: No chest pain, No palpitations Gastrointestinal: No abdominal pain Genitourinary: no symptoms reported Musculoskeletal: neck pain Skin: no symptoms reported Psychiatric/Neurological: Anxiety, Paresthesia (lower legs), Weakness All Other Systems Reviewed Negative Unless Noted: Yes Physical Exam Vital Signs Vital Sign - Last 12Hours 04/05/17 04/05/17 20:40 23:21 Temp 100.7 Pulse 92 Resp 18 B/P (MAP) 149/77 Pulse Ox 95 O2 Delivery Room Air Capillary Refill : Less Than 3 Seconds General Appearance: No Apparent Distress, WD/WN Eyes: Bilateral Eye EOMI, Bilateral Eye Normal Inspection, Bilateral Eye PERRL HEENT: PERRL/EOMI, Pharynx Normal Neck: Full Range of Motion, Supple Respiratory: Chest Non Tender, Decreased Breath Sounds (in bases bilaterally) Cardiovascular: Irregularly Irregular Gastrointestinal: Normal Bowel Sounds, No Organomegaly, No Pulsatile Mass, Non Tender, Soft Rectal: Deferred Extremity: Pedal Edema (trace) Neurologic/Psychiatric: Alert, Oriented x3, No Motor/Sensory Deficits, 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 REC#: [id number] PT STATUS: ADM IN : 1940 PHYSICIAN: OLAYINKA DYER MD ADMIT DATE: 04/05/17 Draft Date of Exam:04/05/17 CT HEAD/CERVICAL SPINE WO PROCEDURE: CT head and CT cervical spine without contrast. TECHNIQUE: Multiple contiguous axial images were obtained through the brain and cervical spine without the use of intravenous contrast. Sagittal and coronal reformations through the cervical spine were then performed. INDICATION: Fall. Abrasion to chin and left forehead. COMPARISON: CT head and cervical spine without contrast 05/20/2016. FINDINGS: CT head: Moderate generalized cerebral and cerebellar parenchymal volume loss. Moderate leukoaraiosis. No intracranial hemorrhage, mass effect, hydrocephalus, or extra-axial fluid collections. Osseous structures are intact. The visualized paranasal sinuses and mastoids are clear. Orbits are unremarkable. CT cervical spine: Mild anterior displacement and posterior angulation of the dens appear chronic. There is a lucency through the base of the dens which was not present on the prior exam. Minimal anterolisthesis of C3 on C4. Alignment is otherwise unremarkable. Vertebral body heights are maintained. Moderate/ advanced degenerative endplate changes. No high-grade spinal canal narrowing on this noncontrast exam. Uncovertebral and facet arthropathy contribute to scattered moderate neural foraminal narrowing. IMPRESSION: 1. No acute intracranial CT findings. 2. Chronic-appearing fracture deformity through the base of the dens. There is a new lucency in the base of the dens concerning for minimally displaced type II odontoid fracture. Report was called/faxed to ER @ [facility] in [place], [place] @ 7:18 AM/asha. [facility] Dictated on workstation # [id number] Dict: 04/06/17 0655 Trans: 04/06/17 0719 [id number] Interpreted by: TIMOTHY COLES MD Electronically signed by: Assessment/Plan Assessment and Plan PNEUMONIA DENS PROCESS FRACTURE WEAKNESS DIABETES MELLITUS LOWER EXTREMITY PERIPHERAL NEUROPATHY SPINAL STENOSIS HYPERTENSION ATRIAL FIBRILLATION CHRONIC ANTICOAGULATION PNEUMONIA - ON ANTIBIOTICS - CONTINUE WITH CURRENT TREATMENT, MONITOR CHEST XRAY TOMORROW. DENS PROCESS FRACTURE - DISCUSSED WITH DR. GLASGOW - HE WANTS PT TO BE IN A HARD COLLAR. WEAKNESS - CONTINUE WITH PLANS FOR PHYSICAL THERAPY. DIABETES MELLITUS - RESUME LEVEMIR SPINAL STENOSIS WITH LOWER EXTREMITY PERIPHERAL NEUROPATHY - MONITOR SYMPTOMS - RESTART GABAPENTIN. HYPERTENSION -WITH ATRIAL FIBRILLATION - PT ON DILTIAZEM AND ELIQUIS. Problems: Admission Diagnosis PNEUMONIA DENS PROCESS FRACTURE WEAKNESS DIABETES MELLITUS LOWER EXTREMITY PERIPHERAL NEUROPATHY SPINAL STENOSIS HYPERTENSION ATRIAL FIBRILLATION CHRONIC ANTICOAGULATION Clinical Quality Measures DVT/VTE Risk/Contraindication: Risk Factor Score Per Nursin RFS Level Per Nursing on Admit: 4+=Very High SHEILA ACEVES MD April 06, 2017 08:47
[2017-04-06] MEDS ORDERED: ZOLP5TAB7 PO (10:08)
[2017-04-06] MEDS ORDERED: DONE10TA41 PO (10:08)
[2017-04-06] MEDS ORDERED: FERR-65 PO (10:08)
[2017-04-06] MEDS ORDERED: DILT240C53 PO (10:08)
[2017-04-06] MEDS ORDERED: MEMA10TA22 PO (10:08)
[2017-04-06] MEDS ORDERED: AMOX500C2 PO (10:08)
[2017-04-06] MEDS ORDERED: POTA99TA7 PO (10:08)
[2017-04-06] MEDS ORDERED: PENT400T2 PO (10:08)
[2017-04-06] MEDS ORDERED: MULT-517 PO (10:08)
[2017-04-06] MEDS ORDERED: METF500T8 PO (10:08)
[2017-04-06] MEDS ORDERED: NON-FORMULARY MEDICATION 1 EA EA (Cholecalciferol (Vitamin D3) (Vitamin D3) 2,000 UNIT) PO SCH (21:00)
[2017-04-06] MEDS ORDERED: TAMSULOSIN 0.4 MG (FLOMAX) CAP PO SCH (21:00)
[2017-04-06] MEDS: metFORMIN XR 500 MG (GLUCOPHAGE XR) TAB PO SCH (21:33)
[2017-04-06] MEDS: MEMANTINE 10 MG (NAMENDA) TABLET PO SCH (21:33)
[2017-04-06] MEDS: PENTOXIFYLLINE 400 MG (TRENtal) TAB PO SCH (21:33)
[2017-04-06] MEDS: GABAPENTIN 300 MG (NEURONTIN) CAP PO SCH (21:33)
[2017-04-06] MEDS: DONEPEZIL 10 MG (ARICEPT) TAB PO SCH (21:33)
[2017-04-06] MEDS: inSUlin DETERMIR 1 UNIT/0.01 ML (LEVEMIR) CHARGE PER UNIT SQ SCH (21:33)
[2017-04-06] MEDS: cefTRIAXone INJECTION 1,000 MG in NS (IVPB) 50 ML IV SCH (23:55)
[2017-04-07 00:16] VITALS: BP 155/76
[2017-04-07 04:22] VITALS: BP 152/76
[2017-04-07 05:18] LABS: BASOPHILS # (AUTO) 0.1 10^3/uL (0.0-0.1); BASOPHILS % (AUTO) 1 % (0-10); EOSINOPHILS # (AUTO) 0.4 10^3/uL (0.0-0.3); EOSINOPHILS % (AUTO) 4 % (0-10); LYMPHOCYTES # (AUTO) 2.8 X 10^3 (1.0-4.0); LYMPHOCYTES % (AUTO) 26 % (12-44); MEAN CORPUSCULAR HEMOGLOBIN 29 PG (25-34); MEAN CORPUSCULAR HGB CONC 33 G/DL (32-36); MEAN CORPUSCULAR VOLUME 90 FL (80-99); MEAN PLATELET VOLUME 9.3 FL (7.4-10.4); MONOCYTES # (AUTO) 1.4 X 10^3 (0.0-1.0); MONOCYTES % (AUTO) 13 % (0-12); NEUTROPHILS # (AUTO) 6.2 X 10^3 (1.8-7.8); NEUTROPHILS % (AUTO) 57 % (42-75); PLATELET COUNT 318 10^3/uL (130-400); RED BLOOD COUNT 4.39 10^6/uL (4.35-5.85); RED CELL DISTRIBUTION WIDTH 14.9 % (10.0-14.5); WHITE BLOOD COUNT 10.8 10^3/uL (4.3-11.0)
[2017-04-07 05:35] LABS: ANION GAP 11 MMOL/L (5-14); BLOOD UREA NITROGEN 9 MG/DL (7-18); BUN/CREATININE RATIO 10; CALCIUM 8.8 MG/DL (8.5-10.1); CARBON DIOXIDE 24 MMOL/L (21-32); CHLORIDE 109 MMOL/L (98-107); CREATININE SERUM 0.86 MG/DL (0.60-1.30); GFR ESTIMATED > 60; GLUCOSE 93 MG/DL (70-105); POTASSIUM 3.6 MMOL/L (3.6-5.0); SODIUM 144 MMOL/L (135-145)
[2017-04-07 08:00] VITALS: BP 112/59
[2017-04-07] MEDS ORDERED: NON-FORMULARY MEDICATION 1 EA EA (Magnesium Oxide 500 MG) PO SCH (09:00)
[2017-04-07] MEDS ORDERED: NON-FORMULARY MEDICATION 1 EA EA (Cholecalciferol (Vitamin D3) (Vitamin D3) 1,000 UNIT) PO SCH (09:00)
--- NOTE | 2017-04-07 09:23 | Diagnostic Imaging Report ---
INDICATION: Cough. COMPARISON: 04/05/2017. FINDINGS: Air trapping and COPD are chronic. The sternal wires are midline. No infiltrate, effusion, pneumothorax, or failure. IMPRESSION: No acute appearing abnormality. Dictated by: Dictated on workstation # [id number]
[2017-04-07] MEDS: PENTOXIFYLLINE 400 MG (TRENtal) TAB PO SCH ×2 (09:33→20:10)
[2017-04-07] MEDS: DILTIAZEM 240 MG (CARDIZEM CD) CAP PO SCH (09:34)
[2017-04-07] MEDS: APIXABAN 5 MG (ELIQUIS) TABLET PO SCH ×2 (09:34→20:10)
[2017-04-07] MEDS: VITAMIN D3 1,000 UNITS (CHOLECALCIFEROL) TABLET PO SCH (09:34)
[2017-04-07] MEDS: metFORMIN XR 500 MG (GLUCOPHAGE XR) TAB PO SCH ×2 (09:34→20:09)
[2017-04-07] MEDS: MAGNESIUM OXIDE (MAG-OX)400 MG TAB PO SCH ×2 (09:34→20:10)
[2017-04-07] MEDS: FERROUS SULF 325 MG (IRON) TAB PO SCH (09:34)
[2017-04-07] MEDS: MEMANTINE 10 MG (NAMENDA) TABLET PO SCH ×2 (09:34→20:10)
[2017-04-07] MEDS: ASPIRIN E.C. 81 MG (ECOTRIN) TAB PO SCH (09:34)
[2017-04-07] MEDS: AZITHROMYCIN 250 MG TAB (ZITHROMAX) PO SCH (09:34)
--- NOTE | 2017-04-07 09:50 | Progress Note (SOAP) ---
Subjective Subjective/Events-last exam PT REPORTS THAT HE IS FEELING BETTER, HE IS STILL COUGHING. PT DENIES CHEST PAIN, DENIES FEELING SHORT OF BREATH, DENIES NECK PAIN, CONTINUES WITH LEG WEAKNESS Review of Systems General: Fatigue HEENT: No Head Aches Pulmonary: No Dyspnea, Cough Cardiovascular: No: Chest Pain Gastrointestinal: No: Nausea Genitourinary: No Dysuria Musculoskeletal: No: neck pain Neurological: Confusion, Weakness Objective Exam Vital Signs Date Time Temp Pulse Resp B/P (MAP) Pulse Ox O2 Delivery O2 Flow Rate FiO2 04/07/17 08:00 97.2 83 20 112/59 93 04/07/17 04:22 98.0 80 20 152/76 95 04/07/17 01:00 80 04/07/17 00:16 97.9 75 20 155/76 94 04/06/17 19:21 82 04/06/17 19:12 98.5 79 20 143/69 93 04/06/17 16:19 98.2 69 18 134/62 95 04/06/17 16:18 92 04/06/17 13:07 77 04/06/17 12:00 97.4 71 20 127/68 93 04/06/17 10:59 92 I & O 04/07/17 07:00 Intake Total 1130 ml Balance 1130 ml Capillary Refill : Less Than 3 Seconds General Appearance: No Apparent Distress, WD/WN HEENT: PERRL/EOMI, Pharynx Normal Respiratory: Chest Non Tender, Lungs Clear, Decreased Breath Sounds Cardiovascular: Irregularly Irregular Gastrointestinal: normal bowel sounds, non tender, soft, no organomegaly, no pulsatile mass Extremity: Normal Capillary Refill, No Pedal Edema Neurologic/Psychiatric: Alert, Oriented x3, No Motor/Sensory Deficits, Normal Mood/Affect Skin: Warm/Dry Lymphatic: No Adenopathy Results Lab Laboratory Tests 04/06/17 14:47: Glucometer 125H 04/06/17 20:36: Glucometer 156H 04/07/17 04:55: White Blood Count 10.8, Red Blood Count 4.39, Hemoglobin 12.9L, Hematocrit 40, Mean Corpuscular Volume 90, Mean Corpuscular Hemoglobin 29, Mean Corpuscular Hemoglobin Concent 33, Red Cell Distribution Width 14.9H, Platelet Count 318, Mean Platelet Volume 9.3, Neutrophils (%) (Auto) 57, Lymphocytes (%) (Auto) 26, Monocytes (%) (Auto) 13H, Eosinophils (%) (Auto) 4, Basophils (%) (Auto) 1, Neutrophils # (Auto) 6.2, Lymphocytes # (Auto) 2.8, Monocytes # (Auto) 1.4H, Eosinophils # (Auto) 0.4H, Basophils # (Auto) 0.1, Sodium Level 144, Potassium Level 3.6, Chloride Level 109H, Carbon Dioxide Level 24, Anion Gap 11, Blood Urea Nitrogen 9, Creatinine 0.86, Estimat Glomerular Filtration Rate > 60, BUN/ Creatinine Ratio 10, Glucose Level 93, Calcium Level 8.8 04/07/17 09:34: Glucometer 227H Microbiology 04/05/17 Blood Culture - Preliminary, Resulted No growth 04/05/17 Gram Stain - Final, Resulted 04/05/17 Sputum Culture - Preliminary, Resulted Usual/normal bonnie isolated. Assessment/Plan Assessment/Plan Assess & Plan/Chief Complaint PNEUMONIA DENS PROCESS FRACTURE WEAKNESS DIABETES MELLITUS LOWER EXTREMITY PERIPHERAL NEUROPATHY SPINAL STENOSIS HYPERTENSION ATRIAL FIBRILLATION CHRONIC ANTICOAGULATION PNEUMONIA - ON ANTIBIOTICS - CONTINUE WITH CURRENT TREATMENT. DENS PROCESS FRACTURE - DISCUSSED WITH DR. GLASGOW - HE WANTS PT TO BE IN A HARD COLLAR. - PT IS ABSOLUTELY REFUSING TO WEAR THE COLLAR - I HAD NOT RECEIVED ANY PHONE CALLS ABOUT THE PATIENT REFUSING TO WEAR THE COLLAR. I FOUND OUT ABOUT HIS REFUSAL TO WEAR THE COLLAR WHEN I WALKED INTO HIS ROOM THIS MORNING AND FOUND THE COLLAR ON HIS BEDSIDE TABLE. HIS REPORTED THAT HE WAS NOT AND DID NOT WEAR THE COLLAR. THE PATIENT AGREED TO WEARING A SOFT COLLAR BUT WILL NOT WEAR THE HARD COLLAR DESPITE THE INFORMATION GIVEN TO HIM ABOUT HIS RISK IF THE DENS BECOMES MORE UNSTABLE. WEAKNESS - CONTINUE WITH PLANS FOR PHYSICAL THERAPY. - WILL SEE IF PT QUALIFIES FOR INPATIENT REHAB DIABETES MELLITUS - RESUME LEVEMIR SPINAL STENOSIS WITH LOWER EXTREMITY PERIPHERAL NEUROPATHY - MONITOR SYMPTOMS - RESTART GABAPENTIN. HYPERTENSION -WITH ATRIAL FIBRILLATION - PT ON DILTIAZEM AND ELIQUIS. Clinical Quality Measures DVT/VTE Risk/Contraindication: Risk Factor Score Per Nursin RFS Level Per Nursing on Admit: 4+=Very High SHEILA TIAN MD April 07, 2017 09:50
[2017-04-07 12:00] VITALS: BP 129/87
--- NOTE | 2017-04-07 12:18 | Physical Therapy Evaluation ---
PT Evaluation-General Medical Diagnosis Admission Date April 05, 2017 at 23:59 Medical Diagnosis: pneumonia; dens process fx Onset Date: April 06, 2017 Therapy Diagnosis Therapy Diagnosis: weakness; abn gait Height/Weight Height (Feet): 6 Height (Inches): 6.00 Weight (Pounds): 224 Weight (Ounces): 0.0 Precautions Precautions/Isolations: Fall Prevention, Standard Precautions Recommended hard collar at all times; however, pt does not like hard collar; Dr. Aceves recommending at least a soft cervical collar. Referral Physician: Ketan Reason for Referral: Evaluation/Treatment Medical History Pertinent Medical History: Atrial Fib, CAD, DM, Dementia, HTN, PVD Additional Medical History lumbar spinal stenosis; B LE neuropathy Current History Pt admitted after fall with LOC. Found to have a min displaced odontoid fx. Pt 's reports a recent history of increased falls. Reviewed History: Yes Social History Home: Single Level Current Living Status: Spouse Entry Into Home: Stairs With Railing Prior/Core FIM Prior Level of Function Functional [place] Measure 0=Not Assessed/NA 4=Minimal Assistance 1=Total Assistance 5=Supervision or Setup 2=Maximal Assistance 6=Modified [place] 3=Moderate Assistance 7=Complete [place] Bed Mobility: 7 Transfers (B,C,W/C) (FIM): 7 Gait: 7 Pt does not regularly use an AD; he does have a walking stick. Recent falls noted by family. PT Evaluation-Current Subjective Pt agreeable to PT. Pt anxious to return home. However, spouse reports he has had an increase in falls and increased shuffled gait. Reports in the recent past she has had to help more with dressing and getting in/out of the shower. Pain Numeric Pain Scale: 3 Location: Joint (Bilateral hips) Location Body Site: Hip Pain Description: Ache Objective Patient Orientation: Person, Place, Time, Situation Problem Solving: Fair ROM/Strength ROM Lower Extremities WFL Strenght Lower Extremities grossly 4-/5 throughout Integumentary/Posture Integumentary intact Bowel Incontinence: No Bladder Incontinence: No Posture forward flexion at hips, likely secondary to spinal stenosis. Neuromuscular (Tone, Coordination, Reflexes) intact Sensory Vision: Functional Hearing: Hearing Aid/Aides Hand Dominance: Right Sensation Right Lower Extremit: Intact Sensation Left Lower Extremity: Intact Sensation Lower Extremities Pt reports peripheral neuropathy that impairs balance. Transfers Functional [place] Measure 0=Not Assessed/NA 4=Minimal Assistance 1=Total Assistance 5=Supervision or Setup 2=Maximal Assistance 6=Modified [place] 3=Moderate Assistance 7=Complete [place] Transfers (B, C, W/C) (FIM): 4 Supine to/from Sit: 4 (HOB elevated; bed rails; min assist at trunk) Sit to/from Stand: 4 (CGA for safety) Gait Mode of Locomotion: Walk Anticipated Mode of Locomotion: Walk Gait (FIM): 4 Distance (FIM): 3=150 ft Gait Assistive Device: FWW Comments/Gait Description Slight forward flexed at hips; shuffled gait and tends to step outside the walker with turns. Balance Sitting Static: Good Sitting Dynamic: Good Standing Static: Fair Standing Dynamic: Fair Treatment Skilled education on safety with turning and gait; cues for step length and foot clearance; pt able to correct initially but needs repeated reminders. Much education on importance of hard collar and use. Education on the importance of skilled PT to reduce the risk of additional falls and for strengthening. Assessment/Needs Post fall at home and also found to have pneumonia. Pt would beneift from skilled PT intervnetion to work on functional strength and mobility as well as safety. he has had a recent decline in functional mobility and safety, per report with falls noted. He will benefit from functional mobility training as well as safety education, equipment use and functional activity tolerance training. Eval of moderate intensity. 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 Senior Care Goals PT Senior Care Goals Time Frame: Apr 15, 2017 Transfers (B,C,W/C) (FIM): 7 Gait (FIM): 6 Gait distance (FIM): 3=150 ft Gait Assistive Device: FWW PT Plan Problem List Problem List: Activity Tolerance, Functional Strength, Safety, Balance, Gait, Transfer, Bed Mobility Treatment/Plan Treatment Plan: Continue Plan of Care Treatment Plan: Bed Mobility, Education, Functional Activity Agustin, Functional Strength, Gait, Safety, Therapeutic Exercise, Transfers Treatment Duration: Apr 15, 2017 # of days/week 5-6 Visits Per Week: 5-6 Pt/Family Agrees w/Plan: Yes Safety Risks/Education Patient Education: Gait Training, Reviewed Don/Doff Brace, Safety Issues Teaching Recipient: Patient, Family Teaching Methods: Demonstration, Discussion Response to Teaching: Reinforcement Needed Pt agreeable to hard cervical collar when up. Time/GCodes Time In: 1015 Time Out: 1100 Total Billed Treatment Time: 45 Total Billed Treatment visit EVM 15 GT 15 FA 15 SONY SALINAS PT April 07, 2017 12:18
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
[2017-04-07 16:08] VITALS: BP 151/75
[2017-04-07] MEDS ORDERED: ALFUZOSIN HCL 10 MG TAB (UROXATRAL) PO SCH (18:00)
[2017-04-07 19:31] VITALS: BP 128/68
[2017-04-07] MEDS: GABAPENTIN 300 MG (NEURONTIN) CAP PO SCH (20:10)
[2017-04-07] MEDS: DONEPEZIL 10 MG (ARICEPT) TAB PO SCH (20:10)
[2017-04-07] MEDS: inSUlin DETERMIR 1 UNIT/0.01 ML (LEVEMIR) CHARGE PER UNIT SQ SCH (20:51)
[2017-04-07] MEDS ORDERED: VITAMIN D3 1,000 UNITS (CHOLECALCIFEROL) TABLET PO SCH (21:00)
[2017-04-08] VITALS: BP 129/61
[2017-04-08] MEDS: cefTRIAXone INJECTION 1,000 MG in NS (IVPB) 50 ML IV SCH (00:34)
[2017-04-08 04:15] VITALS: BP 133/61
[2017-04-08 07:19] VITALS: BP 128/68
[2017-04-08] MEDS: AZITHROMYCIN 250 MG TAB (ZITHROMAX) PO SCH (08:21)
[2017-04-08] MEDS: metFORMIN XR 500 MG (GLUCOPHAGE XR) TAB PO SCH (08:21)
[2017-04-08] MEDS: DILTIAZEM 240 MG (CARDIZEM CD) CAP PO SCH (08:21)
[2017-04-08] MEDS: VITAMIN D3 1,000 UNITS (CHOLECALCIFEROL) TABLET PO SCH (08:21)
[2017-04-08] MEDS: ASPIRIN E.C. 81 MG (ECOTRIN) TAB PO SCH (08:21)
[2017-04-08] MEDS: MEMANTINE 10 MG (NAMENDA) TABLET PO SCH (08:21)
[2017-04-08] MEDS: PENTOXIFYLLINE 400 MG (TRENtal) TAB PO SCH (08:21)
[2017-04-08] MEDS: FERROUS SULF 325 MG (IRON) TAB PO SCH (08:21)
[2017-04-08] MEDS: MAGNESIUM OXIDE (MAG-OX)400 MG TAB PO SCH (08:21)
[2017-04-08] MEDS: APIXABAN 5 MG (ELIQUIS) TABLET PO SCH (08:22)
[2017-04-08] MEDS ORDERED: AZIT250T5 PO (08:57)
[2017-04-08] MEDS ORDERED: ALBU2.5V4 IH (08:57)
--- NOTE | 2017-04-08 09:01 | Discharge Summary ---
Diagnosis/Chief Complaint Date of Admission April 05, 2017 at 23:59 Date of Discharge Discharge Date: April 08, 2017 Discharge Time: 0900 Admission Diagnosis Admission Diagnosis PNEUMONIA DENS PROCESS FRACTURE WEAKNESS DIABETES MELLITUS LOWER EXTREMITY PERIPHERAL NEUROPATHY SPINAL STENOSIS HYPERTENSION ATRIAL FIBRILLATION CHRONIC ANTICOAGULATION Discharge Diagnosis PNEUMONIA DENS PROCESS FRACTURE WEAKNESS DIABETES MELLITUS LOWER EXTREMITY PERIPHERAL NEUROPATHY SPINAL STENOSIS HYPERTENSION ATRIAL FIBRILLATION CHRONIC ANTICOAGULATION Reason Hospital Visit pt is a 76 y/o male who is known to me from clinic. he presented to the hospital after falling at home. he has been seen by dr. noble for his lower extremity neuropathy and weakness. he was sent to [place] for physical therapy, but has yet to participate due to illness. he was admitted to the hospital with weakness, pneumonia, and monitoring after a fall. Discharge Summary Discharge Physical Examination Allergies: Coded Allergies: NKANo Known Allergies (Verified Allergy, Unknown, 01/03/06) Vitals & I&Os Vital Signs Date Time Temp Pulse Resp B/P (MAP) Pulse Ox O2 Delivery O2 Flow Rate FiO2 04/08/17 09:38 77 20 128/68 94 04/08/17 07:19 96.7 04/05/17 23:21 Room Air General Appearance: Alert, Oriented X3, Cooperative HEENT: Atraumatic Respiratory: Clear to Auscultation, Normal Air Movement Cardiovascular: Regular Rate Abdominal: Normal Bowel Sounds, Soft, No Tenderness Extremities: No Clubbing, No Cyanosis Skin: No Breakdown Neuro: Cranial Nerves 3-12 NL, Other (strength 4/5 lower legs 4/5 on upper extremities) Psych/Mental Status: Mental Status NL, Mood NL Hospital Course PNEUMONIA DENS PROCESS FRACTURE WEAKNESS DIABETES MELLITUS LOWER EXTREMITY PERIPHERAL NEUROPATHY SPINAL STENOSIS HYPERTENSION ATRIAL FIBRILLATION CHRONIC ANTICOAGULATION PNEUMONIA - ON ANTIBIOTICS - CONTINUE WITH CURRENT TREATMENT WITH AZITHROMYCIN X 4 MORE DAYS DENS PROCESS FRACTURE -THE PATIENT AGREED TO WEARING A SOFT COLLAR - SEE ORTHOPEDIC CONSULT FOR FULL DETAILS WEAKNESS - CONTINUE WITH PLANS FOR PHYSICAL THERAPY AND OCCUPATIONAL THERAPY PT QUALIFIES FOR INPATIENT REHAB DIABETES MELLITUS - RESUMED LEVEMIR SPINAL STENOSIS WITH LOWER EXTREMITY PERIPHERAL NEUROPATHY - MONITOR SYMPTOMS - RESTARTED GABAPENTIN. HYPERTENSION -WITH ATRIAL FIBRILLATION - PT ON DILTIAZEM AND ELIQUIS. Pending Labs Laboratory Tests 04/08/17 05:28: Glucometer 96 Discharge Condition at discharge improving Instructions to patient/family Please see electonic discharge instructions given to patient. Discharge Medications Reviewed and agree with Discharge Medication list on patient's Discharge Instruction sheet Clinical Quality Measures DVT/VTE Risk/Contraindication: Risk Factor Score Per Nursin RFS Level Per Nursing on Admit: 4+=Very High SHEILA TIAN MD April 08, 2017 09:01
[2017-04-08] MEDS ORDERED: LACT1TAB9 PO (09:13)
[2017-04-08 09:38] VITALS: BP 128/68
== END 2017-04-08 09:37 | DRG 195 ==
LOC: EDUNIT# 20:25 → ER 20:27 → 4TH 23:59 → ENPENDDIS 04-08 09:00
PROVIDERS: ADMIT Family Medicine; ATTEND Family Medicine
DX: J18.9 Pneumonia, unspecified organism (principal); S12.110D Anterior displaced Type II dens fracture, subsequent encounter for fracture with routine healing; R41.0 Disorientation, unspecified; R53.1 Weakness; F03.90 Unspecified dementia, unspecified severity, without behavioral disturbance, psychotic disturbance, mood disturbance, and anxiety; I48.2 Chronic atrial fibrillation; I25.10 Atherosclerotic heart disease of native coronary artery without angina pectoris; I10 Essential (primary) hypertension; E78.00 Pure hypercholesterolemia, unspecified; E11.51 Type 2 diabetes mellitus with diabetic peripheral angiopathy without gangrene; M48.06 Spinal stenosis, lumbar region; N40.0 Benign prostatic hyperplasia without lower urinary tract symptoms; W18.30XA Fall on same level, unspecified, initial encounter; Y92.096 Garden or yard of other non-institutional residence as the place of occurrence of the external cause; Z95.1 Presence of aortocoronary bypass graft; Z79.4 Long term (current) use of insulin; Z79.01 Long term (current) use of anticoagulants; Z85.820 Personal history of malignant melanoma of skin; Z87.891 Personal history of nicotine dependence
CPT/HCPCS: 36415; 70450; 71010; 71020; 72125; 80048; 80053; 81000; 82550; 82962; 83605; 85025; 85610; 85730; 86141; 87040; 87070; 87205; 87804; 94640; 94760; 96361; 96374

== ENCOUNTER 2017-04-08 09:38 | Inpatient (IN) | payer MEDICARE, OTHER ==
[~2017-04-08] VITALS: Ht 182.9 cm; Wt 98.9 kg
[~2017-04-08 09:38] MED LIST changes: +ALBU2.5V4 IH; +AMOX500C2 PO; +AZIT250T5 PO; +DILT240C53 PO; +FERR-65 PO; +LACT1TAB9 PO; +MEMA10TA22 PO; +MULT-517 PO; +POTA99TA7 PO
[2017-04-08 09:45] VITALS: BP 121/66
--- NOTE | 2017-04-08 10:24 | History & Physicial ---
History of Present Illness History of Present Illness Reason for visit/HPI PT IS A 76 Y/O MALE WHO FELL AT HOME, HE HAS SPINAL STENOSIS, WEAKNESS OF LOWER EXTREMITIES AND HAS HAD REPEATED FALLING EPISODES. HE ALSO WAS DIAGNOSED WITH PNEUMONIA ON ADMISSION. AFTER ADMISSION HIS CT OF NECK WAS RE-READ AND FOUND TO HAVE A DENS PROCESS FRACTURE. THERE ARE CONFLICTING REPORTS ON THE DENS PROCESS FRACTURE - ORTHO FEELS LIKE PT NEEDS TO WEAR A SOFT COLLAR. HE IS TOO UNSTEADY TO GO HOME AT THIS TIME AND WAS THUS ADMITTED TO INPATIENT REHAB. Date of Admission April 08, 2017 at 09:38 I consulted on this patient on 04/08/17 10:23 Attending Physician Bakari Stern MD Admitting Physician Sheila Aceves MD Consult Allergies and Home Medications Allergies Coded Allergies: NKANo Known Allergies (Verified Allergy, Unknown, 01/03/06) Home Medications Albuterol Sulfate 2.5 Mg/3 Ml Vial.neb, 2.5 MG IH RTQ4HR PRN for SOA for 10 Days Prescribed by: SHEILA ACEVES on 04/08/17 0857 Amoxicillin 500 Mg Capsule, 500 MG PO TID, (Reported) FILLED 04/04/17 #30 FOR A 10 DAY THERAPY Apixaban 5 Mg Tablet, 5 MG PO BID, (Reported) Aspirin 81 Mg Tabec, 81 MG PO DAILY, (Reported) Azithromycin 250 Mg Tablet, 250 MG PO DAILY for 4 Days Prescribed by: SHEILA ACEVES on 04/08/17 0857 Cholecalciferol (Vitamin D3) 1,000 Unit Capsule, 1,000 UNIT PO DAILY, (Reported) Cholecalciferol (Vitamin D3) 1,000 Unit Capsule, 2,000 UNIT PO HS, (Reported) TAKES 2 (1000 UNIT) CAPSULES Cyanocobalamin 1,000 Mcg/Ml Inj, 1,000 MCG IJ MONTHLY, (Reported) Diltiazem HCl 240 Mg Cap.er.24h, 240 MG PO HS, (Reported) Donepezil HCl 10 Mg Tablet, 10 MG PO HS, (Reported) Ferrous Sulfate 325 Mg Tablet, 325 MG PO DAILY, (Reported) Gabapentin 300 Mg Capsule, 300 MG PO HS, (Reported) Insulin Detemir 100 Unit/1 Ml Insuln.pen, 30 UNIT SQ HS, (Reported) Lactobacillus Acidophilus 1 Each Tablet, 1 EACH PO BID, #30 Prescribed by: SHEILA ACEVES on 04/08/17 0913 Magnesium Oxide 500 Mg Tablet, 500 MG PO DAILY, (Reported) Memantine HCl 10 Mg Tablet, 10 MG PO BID, (Reported) Metformin HCl 500 Mg Tab.er.24h, 500 MG PO BID, (Reported) Multivitamin 1 Each Tablet, 1 TAB PO DAILY, (Reported) Mv-Mn/FA/Vit K/Lycop/Lut/Zeaxa 1 Each Tablet, 1 TAB PO DAILY, (Reported) Pentoxifylline 400 Mg Tablet.er, 400 MG PO BID, (Reported) Potassium 99 Mg Tablet, 99 MG PO DAILY, (Reported) Tamsulosin HCl 0.4 Mg Cap.er.24h, 0.4 MG PO DAILY@1800, (Reported) Tramadol HCl 50 Mg Tablet, 50 MG PO Q8H PRN for PAIN, (Reported) Past Ttnxwsd-Gqlfjv-Yaraqj Hx Patient Social History Marrital Status: Living Status: LIVES WITH SPOUSE IN THEIR HOME Employed/Student: retired Smoking Status: Former Smoker Former smoker/When Quit: Jan 21, 1986 2nd Hand Smoke Exposure: No Physical Abuse Screen: No Sexual Abuse: No Recent Foreign Travel: No Contact w/other who traveled: No Recent Hopitalizations: No Recent Infectious Disease Expo: No Immunizations Up To Date Tetanus Booster (TDap): Less than 5yrs Date of Pneumonia Vaccine: Jul 15, 2015 Date of Influenza Vaccine: Aug 17, 2016 Seasonal Allergies Seasonal Allergies: No Surgeries HX Surgeries: Yes Surgeries: Cardiac, CABG, Eye Surgery Respiratory Hx Respiratory Disorders: No Cardiovascular Hx Cardiovascular Disorders: Yes Cardiac Disorders: Atrial Fibrillation, Coronary Artery Disease, High Cholesterol, Hypertension, Peripheral Vascular Neurological Hx Neurological Disorders: Yes Neurological Disorders: Dementia Reproductive System Hx Reproductive Disorders: No Sexually Transmitted Disease: No HIV/AIDS: No Genitourinary Hx Genitourinary Disorders: No Genitourinary Disorders: Benign Prostatic Hyperpl, Prostate Problems Gastrointestinal Hx Gastrointestinal Disorders: No Musculoskeletal Hx Musculoskeletal Disorders: Yes (SPINAL STENOSIS, lumbar region) Musculoskeletal Disorders: Chronic Back Pain Endocrine Hx Endocrine Disorders: Yes Endocrine Disorders: Diabetes, Insulin dep HEENT HX ENT Disorders: Yes (BILAT CATARACTS REMOVED, GLASSES) HEENT Disorders: Cataract Hearing Impairment: Hard of Hearing, Hearing Aide Right, Hearing Aide Left Cancer Hx Cancer: Yes Cancer: Skin, Melanoma Psychosocial Hx Psychiatric Problems: No Integumentary HX Skin/Integumentary Disorder: No Blood Transfusions Hx Blood Disorders: No Adverse Reaction to a Blood Tr: No Reviewed Nursing Assessment Reviewed/Agree w Nursing PMH: Yes Family Medical History Significant Family History: Heart Disease, Cancer, Diabetes, Hypertension Family Hx: Diabetes mellitus 19 MOTHER G8 SISTER FH: bladder cancer G8 SISTER FH: lupus G8 SISTER Constitutional: No chills, No dizziness, No fever, No malaise, weakness EENTM: No hoarseness, No mouth pain, No throat pain Respiratory: cough, No dyspnea on exertion, No short of breath Cardiovascular: No chest pain, No edema Gastrointestinal: No abdominal pain, No constipation, No diarrhea Genitourinary: no symptoms reported Musculoskeletal: muscle weakness Skin: no symptoms reported Psychiatric/Neurological: Denies Anxiety, Denies Depressed All Other Systems Reviewed Negative Unless Noted: Yes Physical Exam Vital Signs Vital Sign - Last 12Hours 04/08/17 09:45 Temp 96.0 Pulse 71 Resp 20 B/P (MAP) 121/66 Pulse Ox 98 Capillary Refill : General Appearance: No Apparent Distress, WD/WN Eyes: Bilateral Eye EOMI, Bilateral Eye Normal Inspection, Bilateral Eye PERRL HEENT: PERRL/EOMI, Pharynx Normal Neck: Full Range of Motion, Non Tender Respiratory: Chest Non Tender, Lungs Clear, Normal Breath Sounds, No Accessory Muscle Use, No Respiratory Distress Cardiovascular: Irregularly Irregular Gastrointestinal: Normal Bowel Sounds, No Organomegaly, No Pulsatile Mass, Non Tender, Soft Rectal: Deferred Extremity: Normal Capillary Refill, No Calf Tenderness, Pedal Edema (TRACE) Neurologic/Psychiatric: Alert, Oriented x3, No Motor/Sensory Deficits, Normal Mood/Affect, astrochemist II-XII Norm as Tested Skin: Normal Color, Warm/Dry Lymphatic: No Adenopathy Assessment/Plan Assessment and Plan PNEUMONIA DENS PROCESS FRACTURE WEAKNESS DIABETES MELLITUS LOWER EXTREMITY PERIPHERAL NEUROPATHY SPINAL STENOSIS HYPERTENSION ATRIAL FIBRILLATION CHRONIC ANTICOAGULATION PNEUMONIA - ON ANTIBIOTICS - CONTINUE WITH CURRENT TREATMENT WITH AZITHROMYCIN X 4 MORE DAYS DENS PROCESS FRACTURE -THE PATIENT AGREED TO WEARING A SOFT COLLAR - SEE ORTHOPEDIC CONSULT FOR FULL DETAILS - PT TO CONTINUE WITH PHYSICAL THERAPY AND OCCUPATIONAL THERAPY. WEAKNESS - CONTINUE WITH PLANS FOR PHYSICAL THERAPY AND OCCUPATIONAL THERAPY PT QUALIFIES FOR INPATIENT REHAB DIABETES MELLITUS - RESUMED LEVEMIR, ACCUCHECK QAC AND QHS SPINAL STENOSIS WITH LOWER EXTREMITY PERIPHERAL NEUROPATHY - MONITOR SYMPTOMS - RESTARTED GABAPENTIN. HYPERTENSION -WITH ATRIAL FIBRILLATION - PT ON DILTIAZEM AND ELIQUIS. Problems: Admission Diagnosis PNEUMONIA DENS PROCESS FRACTURE WEAKNESS DIABETES MELLITUS LOWER EXTREMITY PERIPHERAL NEUROPATHY SPINAL STENOSIS HYPERTENSION ATRIAL FIBRILLATION CHRONIC ANTICOAGULATION SHEILA ACEVES MD April 08, 2017 10:24
[2017-04-08] MEDS ORDERED: ACETAMINOPHEN 500 MG TAB (TYLENOL) PO PRN (10:30)
[2017-04-08] MEDS ORDERED: RT-ALBUTEROL SULF 2.5 MG/3 ML PRE-MIX VIAL IH PRN (10:30)
[2017-04-08] MEDS ORDERED: ONDANSETRON 4 MG/2 ML (SDV) Z0FRAN IV PRN (10:30)
[2017-04-08] MEDS ORDERED: CHLORASEPTIC LOZENGE MM PRN (10:30)
[2017-04-08] MEDS ORDERED: AZITHROMYCIN 250 MG TAB (ZITHROMAX) PO SCH (10:42)
--- NOTE | 2017-04-08 11:01 | Physical Therapy Evaluation ---
PT Evaluation-General Medical Diagnosis Admission Date April 08, 2017 at 09:38 Medical Diagnosis: pneumonia; odontoid fx Onset Date: April 05, 2017 Therapy Diagnosis Therapy Diagnosis: weakness; abn gait; balance deficits Height/Weight Height (Feet): 6 Height (Inches): 0.00 Weight (Pounds): 218 Weight (Ounces): 0.0 Precautions Precautions/Isolations: Standard Precautions Weight Bear Status Location Restriction: LE Bilateral Referral Physician: Ketan Reason for Referral: Evaluation/Treatment Referral Comments soft collar at all times Medical History Pertinent Medical History: Atrial Fib, CAD, DM, Dementia, HTN, PVD Additional Medical History Spinal stenosis; LE peripheral neuropathy Current History Pt admitted to acute with recent fall with odontoid fx, minimally displaced. Pt transferred to acute rehab for aggressive skilled PT intervention due to recent history of falls and decline in functional mobility. 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 ambulates on outdoor terrain daily; drives some but his step daughter drives him as well. Active. Has a walking stick but rarely uses. PT Evaluation-Current Subjective "Honestly, I'm not sure why I'm here." Spouse reports a recent decline in functional mobilty, increased falls and increased need for assist with ADL"s. Pt is cooperative/agreeable to PT services. 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 Objective Patient Orientation: Person, Place, Time, Situation Problem Solving: Fair (slight decreased safety awareness) ROM/Strength ROM Lower Extremities WNL all planes Strenght Lower Extremities B LE strength is grossly 4/5 throughout. Integumentary/Posture Integumentary intact Bowel Incontinence: No Bladder Incontinence: No Posture Upper back is normal and symmetrical; he does stand with slight forward flexion at hips likely due to spinal stenosis. Neuromuscular (Tone, Coordination, Reflexes) Functional Sensory Vision: Wears Glasses Hearing: Hearing Aid/Aides Hand Dominance: Right Sensation Right Lower Extremit: Intact Sensation Left Lower Extremity: Intact Transfers Functional [place] Measure 0=Not Assessed/NA 4=Minimal Assistance 1=Total Assistance 5=Supervision or Setup 2=Maximal Assistance 6=Modified [place] 3=Moderate Assistance 7=Complete IndependenceIRFPAI Quality Coding Scale 6 Independent with activity with or without an assistive device 5 Patient requires set up or clean up by helper. Patient completes activity by themselves 4 Supervision or touching assist (CGA). Greer provide cues , steadying assist 3 The helper provides less than half the effort to complete the activity 2 The helper provides more than half the effort to complete the activity 1 Dependent. The helper does all the effort to complete an activity 7 Patient refused to complete or attempt activity 9 The patient did not perform the activity before the current illness or injury 88 Not attempted due to Medical conditions or safety concerns Transfers (B, C, W/C) (FIM): 3 Scootin Rollin Roll Left to Right (QC): 4 Supine to/from Sit: 4 Sit to/from Stand: 3 (CGa to stand and min assist to lower to sit; tends to drop onto the seat) bed t/f WC(FIM only if WC use): 4 Sit to Lying (QC): 4 Lying to Sitting/Side of Bed(Q: 4 Sit to Stand (QC): 3 Chair/Nff-wx-Vyfhp Xfer(QC): 4 Car Transfer (QC): 4 Pt needs skilled cues for safety. Needs more assist to lower himself to chair than to stand. Tends to drop into chair. Gait Does the Patient Walk?: No and Walking Goal IS indicated Mode of Locomotion: Walk Anticipated Mode of Locomotion: Walk Gait (FIM): 4 Distance (FIM): 3=150 ft Walk 10 feet (QC): 4 Walk 50 ft with 2 Turns(QC): 4 Walk 150 ft (QC): 4 Walking 10ft/uneven surface-QC: 4 Gait Level of Assist: 4 Comments/Gait Description Trials of gait with FWW, cane and with no AD. On outdoor surfaces, use a cane this date. Pt tends to have decreased foot clearance on the right with altered step length and at times right foot does not pass the left. Pt able to correct with verbal cuing but needs cues 75% of the time to do so correctly. Wheelchair Training Does the Pt Use a Wheelchair?: No Stairs Stairs (FIM): 2 #of Steps: 4 Level of Assist: 4 (CGA for safety) 1 Step (curb) (QC): 4 (with cane with CGA for safety) 4 Steps (QC): 4 Assistive Device: Cane 12 Steps (QC): 88 Balance Sitting Static: Normal Sitting Dynamic: Normal Standing Static: Fair Standing Dynamic: Fair Picking up an Object (QC): 4 Special Test Comments Performed the TUG test and his average time was 18 seconds which puts him at "mostly indep" mobility/safety level. Performed Tinetti and scored a 14/ which puts him at a high fall risk. Treatment Gait training with skilled cues on foot clearance and step length on the right. Outdoor ambulation with skilled cues for safety and sequencing. Worked on high level functional balance and coordinated this with safety education and proper use of AD> Assessment/Needs Pt presents with slight strength deficits with history of falls related to diminshed functional balance, safety awareness and altered gait pattern. He is currently wearing a soft collar for cervical spine protection. He will significantly benefit from skilled PT intervention to work on safety with gait, functional strngth, high level balance and much education of safety awareness and good problem solving of safe situations. He has good potential to make gains and is motivated with good family support. Feel that ARU is an excellent placement due to his need for education, safety, gait and balance training and his high PLOF and activity level Evalauation of moderate complexity due to co morbidities of recent falls, cervical fx, and pneumonia. Strength, balance, and gait are affected and his presentation is changing due to recent fall with LOC. Rehab Potential: Good PT Short Term Goals Short Term Goals Time Frame: April 13, 2017 Transfers (B,C,W/C) (FIM): 4 Gait (FIM): 5 PT Fpc Goals Fpc Goals PT [place] [employer] Goals Time Frame: Apr 22, 2017 Transfers (B,C,W/C) (FIM): 7 Sit to Lying (QC): 6 Lying-Sitting on Side/Bed(QC): 6 Sit to Stand (QC): 6 Roll Left to Right (QC): 6 Chair/Myq-ao-Mbxgt Xfer(QC): 6 Car Transfer (QC): 6 Does the Patient Walk: Yes Gait (FIM): 6 Gait distance (FIM): 3=150 ft Walk 10 feet (QC): 6 Walk 10ft-Uneven Surface(QC): 6 Walk 50ft with 2 Turns (QC): 6 Walk 150 ft (QC): 6 Gait Level of Assist: 6 Gait Assistive Device: Cane Single Point Does the Pt use WC or Scooter?: No Stairs (FIM): 6 # of Steps: 12 1 Step (curb) (QC): 6 4 Steps (QC): 6 12 Steps (QC): 6 Stairs Level Of Assist: 6 Picking up an Object (QC): 5 All goals are set to allow pt to return home at a mod indep level with recommendation of cont outpt PT due to high PLOF and activity level. PT Plan Problem List Problem List: Activity Tolerance, Functional Strength, Safety, Balance, Gait, Transfer, Bed Mobility Treatment/Plan Treatment Plan: Continue Plan of Care Treatment Plan: Bed Mobility, Education, Functional Activity Agustin, Functional Strength, Group Therapy, Gait, Safety, Therapeutic Exercise, Transfers Treatment Duration: Apr 22, 2017 # of days/week 5-6 Visits Per Week: 10-15 Pt/Family Agrees w/Plan: Yes Safety Risks/Education Patient Education: Transfer Techniques, Safety Issues Teaching Recipient: Patient Teaching Methods: Demonstration, Discussion Response to Teaching: Reinforcement Needed Discharge Recommendations Therapy D/C Recommendations: Physical Therapy Outpatient Time/GCodes Time In: 940 Time Out: 1040 Total Billed Treatment Time: 60 Total Billed Treatment visit EVM 15 NM 15 GT 30 SONY SALINAS PT April 08, 2017 11:01
--- NOTE | 2017-04-08 11:47 | ST Cognitive Linguistic Eval ---
Speech Evaluation-General Medical Diagnosis pneumonia; odontoid fx Onset Date: April 05, 2017 Therapy Diagnosis Therapy Diagnosis: Cognitive Linguistic Skills Grossly WNL Precautions Precautions/Isolations: Standard Precautions Referral Referring Physician: Dr. Aceves Reason for Referral: Evaluation/Treatment Cognitive Evaluation Medical History Pertinent Medical History: Atrial Fib, CAD, DM, Dementia, HTN, PVD Reviewed History: Yes Social History Current Living Status: Spouse Speech PLF-Current Status Prior Level of Function The patient denied previous difficulties with speech, language, or cognition prior to his fall. Subjective The patient was recently admitted to [facility] following a fall. The patient greeted the clinician and agreed to participate in the cognitive evaluation on this date. Language Eval: Auditory Comprehends Simple Yes/No Ques: Functional Indent/Objects Multiple Jenkins: Functional Ident/Pics in Multiple Jenkins: Functional Follows 1-Step Commands: Functional Follows Complex Directions: Mild (Repetition required for increased accuracy.) Follows General Conversations: Functional Language Eval: Verbal Language Completes Spontaneous Greeting: Functional Produces Auto, Serial Info: Functional Imitates Simple Words/Phrases: Functional Word Finding: Functional Requests Basic Needs: Functional States Basic Personal Info: Functional Expresses Complex Ideas: Functional Cognitive Patient Orientation The patient is oriented to self, month, day of week, year, and location. Objective Cognitive Domain Attention: WNL Memory: Mild Problem Solving: Functional Objective Impression The patient demonstrates cognitive linguistic functions grossly within normal limits with minimal, intermittent memory deficits. The patient stated his memory function is at baseline and was not altered by his recent fall. If the patient's memory interferes with successful therapy comprehension, please reconsult speech pathology for additional treatment. Communication/Social Cognition Comprehension: 5 Expression: 6 Social Interaction: 6 Problem Solvin Memory: 5 Speech Patient Assess Expression of Ideas/Wants: Exhibits (3) Understanding V[place] Content: Usually Understands (3) Brief Interview-Mental Status: Yes Repetition of Three Words: Three (3) Temporal Orientation: Year: Correct (3) Temporal Orientation: Month: Accurate within 5 days(2) Temporal Orientation: Day: Correct (1) Recall : Wear to say "Sock": No, could not recall (0) Recall : Color: Yes, no cue required (2) Recall : Bed: No, could not recall (0) Speech-Plan Treatment Plan Speech Therapy Treatment Plan: Discontinue ST Evaluation, only. Rehab Potential: Good Safety Risks/Education Teaching Recipient: Patient Teaching Methods: Discussion Response to Teaching: Verbalize Understanding Education Topics Provided: Plan of Care, Results, Recommendations Time Speech Therapy Time In: 10:40 Speech Therapy Time Out: 10:55 Total Billed Time: 15 Billed Treatment Time 1, KASSIDY GUTIERRES April 08, 2017 11:47
[2017-04-08] MEDS: cefTRIAXone INJECTION 1,000 MG in NS (IVPB) 50 ML IV SCH (12:31)
--- NOTE | 2017-04-08 14:02 | Occupational Therapy Eval ---
OT Evaluation-General/PLF Medical Diagnosis Admission Date April 08, 2017 at 09:38 Medical Diagnosis: pneumonia; odontoid fx Onset Date: April 05, 2017 Therapy Diagnosis Therapy Diagnosis: decreased self care skills Height/Weight Height (Feet): 6 Height (Inches): 0.00 Weight (Pounds): 218 Weight (Ounces): 0.0 Precautions Precautions/Isolations: Fall Prevention, Standard Precautions Comments Pt has soft cervical collar in place Weight Bear Status Location Restriction: LE Bilateral Referral Physician: Ketan Medical History Pertinent Medical History: Atrial Fib, CAD, DM, Dementia, HTN, PVD Additional Medical History high cholesterol, BPH, chronic back pain, spinal stenosis, melanoma Social History Current Living Status: Spouse Entry Into Home: Stairs With Railing Steps Into Home: 3 Steps Inside Home: 1 (step down into living room) ADL-Prior Level of Function ADL PLOF Comments Pt reports being independent with self care and mobility prior to admission. Has a cane and FWW if needed. DME/Equipment: Tall Toilet, Tub/Shower Drive Self: Yes OT Current Status Subjective Pt in bed, agrees to treatment. Pt has no c/o pain. Pt states he misses home and wants to go home as soon as possible. Mental Status/Objective Patient Orientation: Person, Place, Situation Current Glasses/Contacts: Yes (reading glasses) Hearing Aids: Yes Dentures/Partials: Yes (upper dentures and lower partial) Hand Dominance: Right Upper Extremity ROM Grossly WFL Upper Extremity Coordination Intact ADL-Treatment ADL-Current Pt supine to sit with supervision with HOB raised slightly. Pt agrees to shower this am. Sit to stand with CGA. Gait to restroom with cane. Pt requires CGA for balance during mobility. Transfer to walk in shower with minimal assistance and cues for safety; uses grab bars for balance. Pt doffed clothing with CGA for balance. Orders state pt may remove collar for shower. Educated pt on safety and precautions. Pt able to wash upper body with set up. Pt washes bilateral upper legs, santiago area and buttocks. Unable to safely wash feet without adaptive equipment so pt was given a long handled sponge and was able to wash feet. Don pullover shirt with set up. Pt donned underwear and pants with CGA for balance during standing for pant hike. Pt required mod assist to don socks. Pt demonstrated ability to complete toilet transfer with minimal assistance. Grooming tasks completed standing at sink. Pt able to brush teeth and comb hair with SBA for standing balance. Pt returned to bed with needs met after session. Functional [place] Measure 0=Not Assessed/NA 4=Minimal Assistance 1=Total Assistance 5=Supervision or Setup 2=Maximal Assistance 6=Modified [place] 3=Moderate Assistance 7=Complete IndependenceIRFPAI Quality Coding Scale 6 Independent with activity with or without an assistive device 5 Patient requires set up or clean up by helper. Patient completes activity by themselves 4 Supervision or touching assist (CGA). [place] provide cues , steadying assist 3 The helper provides less than half the effort to complete the activity 2 The helper provides more than half the effort to complete the activity 1 Dependent. The helper does all the effort to complete an activity 7 Patient refused to complete or attempt activity 9 The patient did not perform the activity before the current illness or injury 88 Not attempted due to Medical conditions or safety concerns Eating (FIM): 6 (Pt reports feeding self, cutting food, and managing packages without assistance) Eating (QC): 6 Grooming (FIM): 5 Oral Hygiene (QC): 4 (supervision) Bathing (FIM): 4 Shower/Bathe Self (QC): 3 Upper Body Dressing (FIM): 5 Upper Body Dressing (QC): 5 Lower Body Dressing (FIM): 4 Lower Body Dressing (QC): 3 On/Off Footwear (QC): 3 Toilet/Commode Transfer (FIM): 4 Toilet Transfer (QC): 3 Shower Transfer (FIM): 4 Pt requires occasional cues for safety during functional tasks. Education OT Patient Education: Rehab process Teaching Recipient: Patient Teaching Methods: Discussion Response to Teaching: Verbalize Understanding OT Short Term Goals Short Term Goals Time Frame: Apr 15, 2017 Bathing(FIM): 5 Lower Body Dressing(FIM): 5 Toileting(FIM): 5 Toilet/Commode Transfer(FIM): 5 Additional Short Term Goals: 1-Demonstrate ADL Tasks, 2-Verbalize Understanding , 3-ImproveStrength/Agustin 1=Demonstrate adherence to instructed precautions during ADL tasks. 2=Patient will verbalize/demonstrate understanding of assistive devices/ modifications for ADL. 3=Patient will improve strength/tolerance for activity to enable patient to perform ADL's. OT Mcfp Goals Mcfp Goals Time Frame: Apr 29, 2017 Eating (FIM): 6 Eating (QC): 6 Groomin Oral Hygiene (QC): 6 Bathing(FIM): 6 Shower/Bathe Self (QC): 6 Upper Body Dressing(FIM): 6 Upper Body Dressing (QC): 6 Lower Body Dressing(FIM): 5 Lower Body Dressing (QC): 5 On/Off Footwear (QC): 5 Toileting(FIM): 6 Toileting Hygiene (QC): 6 Toilet/Commode Transfer(FIM): 6 Toilet/Commode Transfer (QC): 6 Shower Transfer(FIM): 5 Additional Goals: 1-Demonstrate ADL Tasks, 2-Verbalize Understanding, 3- ImproveStrength/Agustin 1=Demonstrate adherence to instructed precautions during ADL tasks. 2=Patient will verbalize/demonstrate understanding of assistive devices/ modifications for ADL. 3=Patient will improve strength/tolerance for activity to enable patient to perform ADL's. Goals established to increase functional performance and allow safe discharge home. OT Education/Plan Problem List/Assessment Assessment: Decreased Activ Tolerance, Decreased UE Strength, Dependent Transfers, Impaired Funct Balance, Impaired Self-Care Skills Pt to benefit from skilled OT for ADL training, adaptive equipment training as needed, strengthening, transfer training, and home safety education to maximize level of function and allow safe return home. Discharge Recommendations Plan/Recommendations: Continue POC Treatment Plan/Plan of Care Treatment,Training & Education: Yes Patient would benefit from OT for education, treatment and training to promote independence in ADL's, mobility, safety and/or upper extremity function for ADL' s. Plan of Care: ADL Retraining, Functional Mobility, Group Exercise/Act as Ind, UE Funct Exercise/Act Treatment Duration: Apr 29, 2017 # of days/week 5-6 Visits Per Week: 10-12 Minutes/Day (M-F): 60-90 Minutes/Day (Sat/Martinez): PRN Agreement: Yes Rehab Potential: Good Time/GCodes Start Time: 10:55 Stop Time: 11:50 Total Time Billed (hr/min): 55 Billed Treatment Time 1 visit, EVM(15minutes), ADLx3(40minutes) JIN BAUGH OT April 08, 2017 14:02
--- NOTE | 2017-04-08 15:34 | Therapy Group Daily Note ---
Therapy Daily Group Note Patient Education Topic Home Safety, Fall Prevention Exercises LE Seated Exercise, UE Exercise Other/Notes Pt transferred from bed to standing at SBA using SPC and ambulated using SPC at SBA to PT/OT Group in Therapy Gym. Pt actively participated in group by interacting in discussion of ways people might have falls and identified ways pt could make home safer and prevent falls. Pt also participated in UE & LE Ex Seated. Pt returned to room via ambulating using SPC at SBA and transferred back to Supine in bed with all 4 rails up. Pt is resting with all needs met at end of tx. Start Time: 13:00 Stop Time: 14:10 Total Billed Treatment Time: 70 Total Billed Treatment 1, GRP KEYANNA RODRÍGUEZ KITCHEN BATH DESIGNER April 08, 2017 15:34
[2017-04-08 18:00] VITALS: BP 144/71
[2017-04-08] MEDS: ALFUZOSIN HCL 10 MG TAB (UROXATRAL) PO SCH (18:43)
[2017-04-08] MEDS: metFORMIN XR 500 MG (GLUCOPHAGE XR) TAB PO SCH (20:37)
[2017-04-08] MEDS: FAMOTIDINE 20 MG (PEPCID) TABLET PO SCH (20:37)
[2017-04-08] MEDS: PENTOXIFYLLINE 400 MG (TRENtal) TAB PO SCH (20:37)
[2017-04-08] MEDS: DONEPEZIL 10 MG (ARICEPT) TAB PO SCH (20:38)
[2017-04-08] MEDS: MAGNESIUM OXIDE (MAG-OX)400 MG TAB PO SCH (20:38)
[2017-04-08] MEDS: GABAPENTIN 300 MG (NEURONTIN) CAP PO SCH (20:38)
[2017-04-08] MEDS: APIXABAN 5 MG (ELIQUIS) TABLET PO SCH (20:38)
[2017-04-08] MEDS: VITAMIN D3 1,000 UNITS (CHOLECALCIFEROL) TABLET PO SCH (20:38)
[2017-04-08] MEDS: MEMANTINE 10 MG (NAMENDA) TABLET PO SCH (20:40)
[2017-04-08] MEDS: inSUlin DETERMIR 1 UNIT/0.01 ML (LEVEMIR) CHARGE PER UNIT SQ SCH (20:46)
[2017-04-09 05:00] VITALS: BP 133/69
--- NOTE | 2017-04-09 06:25 | PM&R Post Admission Assessment ---
Post Admission Physician Asses The preadmission screen agrees with the post admission assessment that the patient is a good candidate for inpatient rehabilitation. The patient will have a comprehensive program of inpatient rehabilitation with a goal of maximizing level of functional independence prior to discharge home with [family]. The patient will have PT/OT ninety minutes per day, each discipline, five days a week for gait strengthening, conditioning, balance, ADLs , any patient/family/caregiver training necessary. Speech therapy to do cognitive assessment and treat as indicted. Rehabilitation nursing to assist with bowel, bladder, skin, wound care, medication administration, pain management. Physical Therapist Aide to assist with discharge planning, community reentry. SCD's for DVT prophylaxis. He appears to be well motivated to participate in three hours of therapy a day. He should be able to tolerate three hours of therapy a day from a medical standpoint. He should benefit from the three hours of therapy a day. He has a reasonable discharge plan, reasonable discharge rehabilitation goals and a supportive family. He has various comorbidities that need to be closely monitored with medications and treatments adjusted on a daily basis as needed. These include: Lumbar spinal stenosis with hx of falls with recent odontoid frx HTN A FIB Coronary art D Barriers to discharge for this patient who had been independent prior to this are for him to be modified independent to supervision for ADLs and mobility skills prior to discharge home with family, so as to lessen the burden of the caregivers. Risks for this patient include: 1. Fall 2. Fracture 3. DVT 4. Pulmonary embolism 5. Wound infection 6. Skin breakdown 7. Contractures 8. Poorly controlled pain 9. Urinary retention 10. UTI 11. Respiratory infection 12. Aspiration 13 Poorly controlled A FIB 14. Angina 15. Poorly controlled HTN Estimated Length of Stay: 14 days Prognosis: Rehab prognosis appears good for goal of discharge home with spouse modified independent to supervision for ADLs and mobility skills. RIVER GERBER MD April 09, 2017 06:25
[2017-04-09] MEDS: VITAMIN D3 1,000 UNITS (CHOLECALCIFEROL) TABLET PO SCH ×2 (08:32→20:05)
[2017-04-09] MEDS: ASPIRIN E.C. 81 MG (ECOTRIN) TAB PO SCH (08:33)
[2017-04-09] MEDS: MEMANTINE 10 MG (NAMENDA) TABLET PO SCH ×2 (08:34→20:06)
[2017-04-09] MEDS: MAGNESIUM OXIDE (MAG-OX)400 MG TAB PO SCH ×2 (08:35→20:06)
[2017-04-09] MEDS: FERROUS SULF 325 MG (IRON) TAB PO SCH (08:35)
[2017-04-09] MEDS: AZITHROMYCIN 250 MG TAB (ZITHROMAX) PO SCH (08:35)
[2017-04-09] MEDS: PENTOXIFYLLINE 400 MG (TRENtal) TAB PO SCH ×2 (08:35→20:06)
[2017-04-09] MEDS: metFORMIN XR 500 MG (GLUCOPHAGE XR) TAB PO SCH ×2 (08:35→20:06)
[2017-04-09] MEDS: DILTIAZEM 240 MG (CARDIZEM CD) CAP PO SCH (08:35)
[2017-04-09] MEDS: FAMOTIDINE 20 MG (PEPCID) TABLET PO SCH ×2 (08:35→20:06)
[2017-04-09] MEDS: APIXABAN 5 MG (ELIQUIS) TABLET PO SCH ×2 (08:35→20:06)
--- NOTE | 2017-04-09 08:47 | Physical Therapy Daily Note ---
PT Daily Note-Current Subjective Pt. agrees to rx. Anxious to be finished as he has a day pass and really wants to get home. Pain Numeric Pain Scale: 0-No Pain Appearance moves swiftly and impulsively Mental Status Patient Orientation: Normal For Age Attachments: Other-See Comments (soft collar) Transfers Functional [place] Measure 0=Not Assessed/NA 4=Minimal Assistance 1=Total Assistance 5=Supervision or Setup 2=Maximal Assistance 6=Modified [place] 3=Moderate Assistance 7=Complete IndependenceIRFPAI Quality Coding Scale 6 Independent with activity with or without an assistive device 5 Patient requires set up or clean up by helper. Patient completes activity by themselves 4 Supervision or touching assist (CGA). [place] provide cues , steadying assist 3 The helper provides less than half the effort to complete the activity 2 The helper provides more than half the effort to complete the activity 1 Dependent. The helper does all the effort to complete an activity 7 Patient refused to complete or attempt activity 9 The patient did not perform the activity before the current illness or injury 88 Not attempted due to Medical conditions or safety concerns Transfers (B, C, W/C) (FIM): 5 Scootin Rollin Supine to/from Sit: 6 Sit to/from Stand: 5 Bed to/from Chair: 5 pt. plops into chair, education and practice for safe sitting and use of hands Gait Training Does the Patient Walk?: Yes Gait (FIM): 5 Distance (FIM): 3=150 ft Gait Level of Assist: 5 Gait Persons Needed: 1 Gait Assistive Device: FWW much education for step length as pt walks with Parkinsons like gait, shuffling and short stepped, feet far outside walker square etc. Much work on fig 8s and safe gait and FWW use Exercises Seated Therapy Exercises: Ankle pumps, Sit to stand, Long arc quads, Hip flexion Seated Reps: 12 Assessment Current Status: Good Progress present and supportive and reinforces all cues given to the patient PT Short Term Goals Short Term Goals Time Frame: April 13, 2017 Gait (FIM): 5 PT Warehouse Man Goals Senior Care Goals PT Warehouse Man Goals Time Frame: Apr 22, 2017 Transfers (B,C,W/C) (FIM): 7 Sit to Lying (QC): 6 Lying-Sitting on Side/Bed(QC): 6 Sit to Stand (QC): 6 Rollin Roll Left to Right (QC): 6 Chair/Lln-kh-Dyyno Xfer(QC): 6 Car Transfer (QC): 6 Does the Patient Walk: Yes Gait (FIM): 6 Gait distance (FIM): 3=150 ft Walk 10 feet (QC): 6 Walk 10ft-Uneven Surface(QC): 6 Walk 50ft with 2 Turns (QC): 6 Walk 150 ft (QC): 6 Gait Level of Assist: 6 Gait Assistive Device: Cane Single Point Does the Pt use WC or Scooter?: No Stairs (FIM): 6 # of Steps: 12 1 Step (curb) (QC): 6 4 Steps (QC): 6 12 Steps (QC): 6 Stairs Level Of Assist: 6 Picking up an Object (QC): 5 PT Plan Treatment/Plan Treatment Plan: Continue Plan of Care Treatment Plan: Bed Mobility, Education, Functional Activity Agustin, Functional Strength, Group Therapy, Gait, Safety, Therapeutic Exercise, Transfers Treatment Duration: Apr 22, 2017 Visits Per Week: 10-15 Safety Risks/Education Patient Education: Gait Training, Transfer Techniques, Correct Positioning, Safety Issues Teaching Recipient: Patient Teaching Methods: Demonstration, Discussion Response to Teaching: Verbalize Understanding, Return Demonstration, Reinforcement Needed Time/GCodes Time In: 815 Time Out: 840 Total Billed Treatment Time: 25 Total Billed Treatment 1,GT25m G Codes Necessary: LIZZ Garcia CYBER CRIME INVESTIGATOR April 09, 2017 08:46
[2017-04-09] MEDS: cefTRIAXone INJECTION 1,000 MG in NS (IVPB) 50 ML IV SCH (09:21)
[2017-04-09 18:09] VITALS: BP 133/66
[2017-04-09] MEDS: ALFUZOSIN HCL 10 MG TAB (UROXATRAL) PO SCH (18:12)
[2017-04-09] MEDS: inSUlin DETERMIR 1 UNIT/0.01 ML (LEVEMIR) CHARGE PER UNIT SQ SCH (20:05)
[2017-04-09] MEDS: GABAPENTIN 300 MG (NEURONTIN) CAP PO SCH (20:06)
[2017-04-09] MEDS: DONEPEZIL 10 MG (ARICEPT) TAB PO SCH (20:06)
[2017-04-10 06:08] VITALS: BP 133/69
[2017-04-10] MEDS: MAGNESIUM OXIDE (MAG-OX)400 MG TAB PO SCH ×2 (08:12→20:19)
[2017-04-10] MEDS: AZITHROMYCIN 250 MG TAB (ZITHROMAX) PO SCH (08:12)
[2017-04-10] MEDS: VITAMIN D3 1,000 UNITS (CHOLECALCIFEROL) TABLET PO SCH ×2 (08:13→20:20)
[2017-04-10] MEDS: PENTOXIFYLLINE 400 MG (TRENtal) TAB PO SCH ×2 (08:13→20:19)
[2017-04-10] MEDS: FERROUS SULF 325 MG (IRON) TAB PO SCH (08:13)
[2017-04-10] MEDS: FAMOTIDINE 20 MG (PEPCID) TABLET PO SCH ×2 (08:13→20:20)
[2017-04-10] MEDS: DILTIAZEM 240 MG (CARDIZEM CD) CAP PO SCH (08:13)
[2017-04-10] MEDS: ASPIRIN E.C. 81 MG (ECOTRIN) TAB PO SCH (08:13)
[2017-04-10] MEDS: APIXABAN 5 MG (ELIQUIS) TABLET PO SCH ×2 (08:13→20:19)
[2017-04-10] MEDS: metFORMIN XR 500 MG (GLUCOPHAGE XR) TAB PO SCH ×2 (08:13→20:19)
[2017-04-10] MEDS: MEMANTINE 10 MG (NAMENDA) TABLET PO SCH ×2 (08:14→20:22)
--- NOTE | 2017-04-10 12:59 | Individualized Plan of Care ---
Individualized Plan of Care Rehab Nursing IPOC Order Admission Date April 08, 2017 at 09:38 Current Orders Orders Mat Protocol-Rt Rfs (04/10/17 07:58) Rehab Nursing Orders: Diseage Management, Edu in Press Rel Techn, Nutrition Management, Pain Management Toilet every (bladder): (hrs): 2 HOURS WHILE AWAKE PRN PT IPOC Problem List: Activity Tolerance, Functional Strength, Safety, Balance, Gait, Transfer, Bed Mobility Treatment Plan: Continue Plan of Care Bed Mobility, Education, Functional Activity Agustin, Functional Strength, Group Therapy, Gait, Safety, Therapeutic Exercise, Transfers Treatment Duration: Apr 22, 2017 Visits Per Week: 10-15 Minutes/Day (M-F): 60-90 Minutes/Day (Sat/Martinez): PRN OT IPOC Problems: Decreased Activ Tolerance, Decreased UE Strength, Dependent Transfers , Impaired Funct Balance, Impaired Self-Care Skills OT Problems Pt to benefit from skilled OT for ADL training, adaptive equipment training as needed, strengthening, transfer training, and home safety education to maximize level of function and allow safe return home. Plan of Care: ADL Retraining, Functional Mobility, Group Exercise/Act as Ind, UE Funct Exercise/Act Treatment Duration: Apr 29, 2017 Visits Per Week: 10-12 Minutes/Day (M-F): 60-90 Minutes/Day (Sat/Martinez): PRN ST IPOC Speech Therapy Treatment Plan: Discontinue ST Physician IPOC Medical Issues being managed closely and that require the 24 hour availability of a physician:pNEUMONIA,htn,a fib Medical Issues: Bowel/Bladder Function, DVT Prophylaxis, Falls Precautions, Fluid/Electrolyte/Nutrition Balance, Infection Protection, Other (List) ( PER ABOVE) Brief Synthesis of Preadmission Screen, Post-Admission Evaluation, and Therapy Evaluations:76 YO MALE WITH MILD DEMEDNTIA WHO HAD BEEN AN iNDEPENDENT AMBULATOR AND LIVING WITH SPOUSE IN THEIR HOME IN [facility] WHO FELL AND SUSTAINED A DENS FRX MANAGED BY ORTHO SPINE WITH A c COLLAR.aLSO FOUND TO HAVE PNEUMONIA AND NOW ON iv ADMITTED aNTIBIOTICE bEING FOLLOWED BY pcp.hAS MULTIPLE MEDICAL COMORBIDITIES Medical Prognosis: GOOD Anticipated Length of Stay: 04/29/17 Rehab Goals mODIFIED iNDEPENDENT TO SUPERVISION FOR ADLS AND MOBILTY SKILLS Anticipated discharge destinat: [facility] WITH SPOUSE WITH [facility] RIVER GERBER MD April 10, 2017 12:59
[2017-04-10] MEDS: ALFUZOSIN HCL 10 MG TAB (UROXATRAL) PO SCH (17:41)
[2017-04-10 17:44] VITALS: BP 134/69
[2017-04-10] MEDS: DONEPEZIL 10 MG (ARICEPT) TAB PO SCH (20:19)
[2017-04-10] MEDS: GABAPENTIN 300 MG (NEURONTIN) CAP PO SCH (20:19)
[2017-04-10] MEDS: inSUlin DETERMIR 1 UNIT/0.01 ML (LEVEMIR) CHARGE PER UNIT SQ SCH (20:22)
[2017-04-11 05:31] VITALS: BP 147/74
[2017-04-11] MEDS: DILTIAZEM 240 MG (CARDIZEM CD) CAP PO SCH (08:33)
[2017-04-11] MEDS: MEMANTINE 10 MG (NAMENDA) TABLET PO SCH ×2 (08:33→20:54)
[2017-04-11] MEDS: VITAMIN D3 1,000 UNITS (CHOLECALCIFEROL) TABLET PO SCH ×2 (08:33→20:54)
[2017-04-11] MEDS: FERROUS SULF 325 MG (IRON) TAB PO SCH (08:33)
[2017-04-11] MEDS: metFORMIN XR 500 MG (GLUCOPHAGE XR) TAB PO SCH ×2 (08:33→20:54)
[2017-04-11] MEDS: FAMOTIDINE 20 MG (PEPCID) TABLET PO SCH ×2 (08:33→20:54)
[2017-04-11] MEDS: MAGNESIUM OXIDE (MAG-OX)400 MG TAB PO SCH ×2 (08:33→20:54)
[2017-04-11] MEDS: ASPIRIN E.C. 81 MG (ECOTRIN) TAB PO SCH (08:33)
[2017-04-11] MEDS: PENTOXIFYLLINE 400 MG (TRENtal) TAB PO SCH ×2 (08:34→20:54)
[2017-04-11] MEDS: APIXABAN 5 MG (ELIQUIS) TABLET PO SCH ×2 (08:34→20:53)
[2017-04-11] MEDS: AZITHROMYCIN 250 MG TAB (ZITHROMAX) PO SCH (08:34)
--- NOTE | 2017-04-11 09:01 | Physical Therapy Daily Note ---
PT Daily Note-Current Subjective Agreeable to PT. "When do I get to go home?" Pt reports he does feel stronger and is ready to return home. Pain Numeric Pain Scale: 0-No Pain Location: No Pain Reported Mental Status Patient Orientation: Person, Place, Time, Situation Transfers Functional [place] Measure 0=Not Assessed/NA 4=Minimal Assistance 1=Total Assistance 5=Supervision or Setup 2=Maximal Assistance 6=Modified [place] 3=Moderate Assistance 7=Complete IndependenceIRFPAI Quality Coding Scale 6 Independent with activity with or without an assistive device 5 Patient requires set up or clean up by helper. Patient completes activity by themselves 4 Supervision or touching assist (CGA). [place] provide cues , steadying assist 3 The helper provides less than half the effort to complete the activity 2 The helper provides more than half the effort to complete the activity 1 Dependent. The helper does all the effort to complete an activity 7 Patient refused to complete or attempt activity 9 The patient did not perform the activity before the current illness or injury 88 Not attempted due to Medical conditions or safety concerns Transfers (B, C, W/C) (FIM): 7 Roll Left to Right (QC): 6 Supine to/from Sit: 7 Sit to/from Stand: 7 Sit to Lying (QC): 6 Sit to Stand (QC): 6 Chair/Cno-hw-Hgibs Xfer(QC): 6 Car Transfer (QC): 6 Pt is indep with all functional transfers. Sit to from stand multiple reps from park bench and chair. Skilled cues for hand placement and squaring to surface before sitting. Gait Training Does the Patient Walk?: Yes Gait (FIM): 6 Distance (FIM): 3=150 ft Distance: 200ft Walk 10 feet (QC): 6 (in his room with ) Walk 50 ft with 2 Turns(QC): 6 (in room, in out bathroom with cane) Walk 150 ft (QC): 6 Walking 10ft/uneven surface-QC: 6 (grassy surface and sidewalk with cane) Gait Assistive Device: Cane Single Point Pt is mod indep for approx 250 ft, then needs cues 50% of the time to step through with the right and for foot clearance on the right. Spent much time walking on outdoor surfaces on sidewalk, grass, curbs and outdoor steps to focus on outdoor mobility that he performs at home. Much education on safety awareness and focus on right foot/leg managment for optimal safety. Multiple sit to from stand transfers from park bench outdoors. Pt walked up down sloped le[address] way in doors. All gait performed with a cane. Pt walked >1000 ft total. Wheelchair Training Does the Pt Use a Wheelchair?: No Stair Training Stair Training: Handrails/: 1 handrail (left) Stairs (FIM): 6 #of Steps: 12 1 Step (curb) (QC): 6 4 Steps (QC): 6 12 Steps (QC): 6 Stairs: Pattern: Reciprocal Balance Picking up an Object (QC): 5 Neuromuscular Functional balance activities for forward gait without AD, sidestepping and heel toe gait all with SBA and skilled cues for foot clearance right. Focus on high dynamic standing balance and safety to promote improved functional safety with gait. Treatments Gait, functional activity with transfers and balance activities. Assessment Current Status: Good Progress As he fatigues, decreased foot clearance and step through of the right LE. Decreased safety awareness at times; verbalized understanding of safety when cued. PT Short Term Goals Short Term Goals Time Frame: April 13, 2017 Gait (FIM): 5 (mdt) PT Mcfp Goals Custom Applicator Goals PT Custom Applicator Goals Time Frame: Apr 22, 2017 Transfers (B,C,W/C) (FIM): 7 Sit to Lying (QC): 6 Lying-Sitting on Side/Bed(QC): 6 Sit to Stand (QC): 6 Rollin Roll Left to Right (QC): 6 Chair/Sji-uq-Gkwtp Xfer(QC): 6 Car Transfer (QC): 6 Does the Patient Walk: Yes Gait (FIM): 6 Gait distance (FIM): 3=150 ft Walk 10 feet (QC): 6 Walk 10ft-Uneven Surface(QC): 6 Walk 50ft with 2 Turns (QC): 6 Walk 150 ft (QC): 6 Gait Level of Assist: 6 Gait Assistive Device: Cane Single Point Does the Pt use WC or Scooter?: No Stairs (FIM): 6 # of Steps: 12 1 Step (curb) (QC): 6 4 Steps (QC): 6 12 Steps (QC): 6 Stairs Level Of Assist: 6 Picking up an Object (QC): 5 PT Plan Problem List Problem List: Activity Tolerance, Functional Strength, Safety, Balance, Gait, Transfer Treatment/Plan Treatment Plan: Continue Plan of Care Treatment Plan: Bed Mobility, Education, Functional Activity Agustin, Functional Strength, Group Therapy, Gait, Safety, Therapeutic Exercise, Transfers Treatment Duration: Apr 22, 2017 Visits Per Week: 10-15 Minutes/Day (M-F): 60-90 Minutes/Day (Sat/Martinez): PRN Safety Risks/Education Patient Education: Gait Training, Transfer Techniques, Safety Issues Teaching Recipient: Patient Teaching Methods: Demonstration, Discussion Response to Teaching: Verbalize Understanding, Reinforcement Needed Time/GCodes Time In: 755 Time Out: 856 Total Billed Treatment Time: 61 Total Billed Treatment visit GT 31 FA 15 NM 15 SONY SALINAS PT April 11, 2017 09:01
--- NOTE | 2017-04-11 11:10 | Physical Therapy Daily Note ---
PT Daily Note-Current Subjective Patient is sitting EOB and agrees to PT. Pain Numeric Pain Scale: 0-No Pain Location: No Pain Reported Mental Status Patient Orientation: Normal For Age Transfers Functional [place] Measure 0=Not Assessed/NA 4=Minimal Assistance 1=Total Assistance 5=Supervision or Setup 2=Maximal Assistance 6=Modified [place] 3=Moderate Assistance 7=Complete IndependenceIRFPAI Quality Coding Scale 6 Independent with activity with or without an assistive device 5 Patient requires set up or clean up by helper. Patient completes activity by themselves 4 Supervision or touching assist (CGA). [place] provide cues , steadying assist 3 The helper provides less than half the effort to complete the activity 2 The helper provides more than half the effort to complete the activity 1 Dependent. The helper does all the effort to complete an activity 7 Patient refused to complete or attempt activity 9 The patient did not perform the activity before the current illness or injury 88 Not attempted due to Medical conditions or safety concerns Transfers (B, C, W/C) (FIM): 6 Scootin Sit to/from Stand: 6 Sit to Stand (QC): 5 Gait Training Does the Patient Walk?: Yes Gait (FIM): 6 Distance (FIM): 3=150 ft Distance: 400' x 4 Walk 10 feet (QC): 5 Walk 50 ft with 2 Turns(QC): 5 Walk 150 ft (QC): 5 Walking 10ft/uneven surface-QC: 5 Gait Level of Assist: 6 Gait Assistive Device: Cane Single Point noted shuffle gait sequence with right LE lag; skilled verbal instruction to "march" to perform bilateral foot clearance; patient ambulated outside on all terrains without difficulty Assessment Patient tolerated treatment well and returned to room with needs met. Patient is anxious and determined to return to home this week. PT Short Term Goals Short Term Goals Time Frame: April 13, 2017 Gait (FIM): 5 (mdt) PT Health Information Clerk Goals Health Information Clerk Goals PT Longterm Goals Time Frame: Apr 22, 2017 Transfers (B,C,W/C) (FIM): 7 Sit to Lying (QC): 6 Lying-Sitting on Side/Bed(QC): 6 Sit to Stand (QC): 6 Rollin Roll Left to Right (QC): 6 Chair/Umz-oz-Wmecg Xfer(QC): 6 Car Transfer (QC): 6 Does the Patient Walk: Yes Gait (FIM): 6 Gait distance (FIM): 3=150 ft Walk 10 feet (QC): 6 Walk 10ft-Uneven Surface(QC): 6 Walk 50ft with 2 Turns (QC): 6 Walk 150 ft (QC): 6 Gait Level of Assist: 6 Gait Assistive Device: Cane Single Point Does the Pt use WC or Scooter?: No Stairs (FIM): 6 # of Steps: 12 1 Step (curb) (QC): 6 4 Steps (QC): 6 12 Steps (QC): 6 Stairs Level Of Assist: 6 Picking up an Object (QC): 5 PT Plan Treatment/Plan Treatment Plan: Continue Plan of Care Treatment Plan: Bed Mobility, Education, Functional Activity Agustin, Functional Strength, Group Therapy, Gait, Safety, Therapeutic Exercise, Transfers Treatment Duration: Apr 22, 2017 Visits Per Week: 10-15 Minutes/Day (M-F): 60-90 Minutes/Day (Sat/Martinez): PRN Time/GCodes Time In: 1035 Time Out: 1105 Total Billed Treatment Time: 30 Total Billed Treatment 1 visit GT x 2 30 min INO WIES PT April 11, 2017 11:10
--- NOTE | 2017-04-11 13:00 | Occupational Ther Daily Note ---
OT Current Status-Daily Note Subjective No pain reported. Appearance Pt. is sitting up in chair. Agrees to shower this date. Mental Status/Objective Patient Orientation: Person, Place Functional [place] Measure 0=Not Assessed/NA 4=Minimal Assistance 1=Total Assistance 5=Supervision or Setup 2=Maximal Assistance 6=Modified [place] 3=Moderate Assistance 7=Complete [place] Memory(FIM): 4 (Pt. does demonstrate some memory deficits. Will often say the same thing several times, and repeat self.) ADL-Treatment Functional [place] Measure 0=Not Assessed/NA 4=Minimal Assistance 1=Total Assistance 5=Supervision or Setup 2=Maximal Assistance 6=Modified [place] 3=Moderate Assistance 7=Complete IndependenceIRFPAI Quality Coding Scale 6 Independent with activity with or without an assistive device 5 Patient requires set up or clean up by helper. Patient completes activity by themselves 4 Supervision or touching assist (CGA). [place] provide cues , steadying assist 3 The helper provides less than half the effort to complete the activity 2 The helper provides more than half the effort to complete the activity 1 Dependent. The helper does all the effort to complete an activity 7 Patient refused to complete or attempt activity 9 The patient did not perform the activity before the current illness or injury 88 Not attempted due to Medical conditions or safety concerns Grooming (FIM): 5 (Pt. requires SBA at sink to complete grooming tasks.) Bathing (FIM): 5 (Pt. requires SBA in shower due to safety and balance issues. Able to reach all parts.) Shower/Bathe Self (QC): 4 Upper Body (FIM): 5 (set up with shirt and soft collar.) Upper Body Dressing (QC): 5 Lower Body Dressing (FIM): 4 (Pt. requires min assist to don shoes and socks. Able to get underwear and pants on with SBA. Pt. educated on adaptive equipment. Practiced doffing/donning shoes and socks with AE. Required min assist for this task with equipment.) Lower Body Dressing (QC): 4 On/Off Footwear (QC): 4 Transfers (B, C, W/C) (FIM): 5 (SBA due to shuffling gait at times. Pt. tends to flower picker cane and walk with it instead of putting it on the ground.) Shower Transfer(FIM): 5 Other Treatment Pt. agreed to ADL tasks. Note that pt. is somewhat impulsive, and requires SBA in case he should lose his balance. Pt. also demonstrates memory deficits at times. Noted that pt. will often repeat himself, as though he has forgotten that he has already stated something. Ambulated to therapy gym. Tolerated 15 minutes on armbike at min resistance with rest breaks, to increase overall strength and endurance. Pt. then completed fine motor task with nuts/bolts with no difficulty noted. Pt. educated on adaptive equipment after ADL session , and return demonstrated ability to use equipment. All needs met in room. Education OT Patient Education: Exercise program, Modified ADL techniques, Progress toward Goal/Update tx plan, Purpose of tx/functional activities, Reviewed precautions, Rehab process, Transfer techniques, Use of adapted equipment Teaching Recipient: Patient Teaching Methods: Demonstration, Discussion Response to Teaching: Verbalize Understanding, Return Demonstration OT Short Term Goals Short Term Goals Time Frame: Apr 15, 2017 Bathing(FIM): 5 Lower Body Dressing(FIM): 5 Toileting(FIM): 5 Toilet/Commode Transfer(FIM): 5 Additional Short Term Goals: 1-Demonstrate ADL Tasks, 2-Verbalize Understanding , 3-ImproveStrength/Agustin 1=Demonstrate adherence to instructed precautions during ADL tasks. 2=Patient will verbalize/demonstrate understanding of assistive devices/ modifications for ADL. 3=Patient will improve strength/tolerance for activity to enable patient to perform ADL's. OT Fpc Goals Fpc Goals Time Frame: Apr 29, 2017 Eating (FIM): 6 Eating (QC): 6 Groomin Oral Hygiene (QC): 6 Bathing(FIM): 6 Shower/Bathe Self (QC): 6 Upper Body Dressing(FIM): 6 Upper Body Dressing (QC): 6 Lower Body Dressing(FIM): 5 Lower Body Dressing (QC): 5 On/Off Footwear (QC): 5 Toileting(FIM): 6 Toileting Hygiene (QC): 6 Toilet/Commode Transfer(FIM): 6 Toilet/Commode Transfer (QC): 6 Shower Transfer(FIM): 5 Additional Goals: 1-Demonstrate ADL Tasks, 2-Verbalize Understanding, 3- ImproveStrength/Agustin 1=Demonstrate adherence to instructed precautions during ADL tasks. 2=Patient will verbalize/demonstrate understanding of assistive devices/ modifications for ADL. 3=Patient will improve strength/tolerance for activity to enable patient to perform ADL's. OT Education/Plan Problem List/Assessment Assessment: Decreased Activ Tolerance, Decreased Safety Aware, Dependent Transfers, Impaired Cognition, Impaired Funct Balance, Impaired I ADL's, Impaired Self-Care Skills Pt to benefit from skilled OT for ADL training, adaptive equipment training as needed, strengthening, transfer training, and home safety education to maximize level of function and allow safe return home. Discharge Recommendations Plan/Recommendations: Continue POC Therapy D/C Recommendations: Home w/ Family Support, Occupational Therapy Home Care Equpiment Recommendations-D/C: Hip Kit Target Placement Home with spouse. Treatment Plan/Plan of Care Treatment,Training & Education: Yes Patient would benefit from OT for education, treatment and training to promote independence in ADL's, mobility, safety and/or upper extremity function for ADL' s. Plan of Care: ADL Retraining, Functional Mobility, Group Exercise/Act as Ind, UE Funct Exercise/Act Treatment Duration: Apr 29, 2017 Visits Per Week: 10-12 Minutes/Day (M-F): 60-90 Minutes/Day (Sat/Martinez): PRN Agreement: Yes Rehab Potential: Good Time/GCodes Start Time: 09:00 Stop Time: 10:30 Total Time Billed (hr/min): 90 Billed Treatment Time 1, ADL x 45minutes, EX x 45minutes SEBLE GARRISON OT April 11, 2017 12:59
[2017-04-11 18:12] VITALS: BP 152/71
[2017-04-11] MEDS: ALFUZOSIN HCL 10 MG TAB (UROXATRAL) PO SCH (18:12)
[2017-04-11] MEDS: GABAPENTIN 300 MG (NEURONTIN) CAP PO SCH (20:53)
[2017-04-11] MEDS: DONEPEZIL 10 MG (ARICEPT) TAB PO SCH (20:54)
[2017-04-11] MEDS: inSUlin DETERMIR 1 UNIT/0.01 ML (LEVEMIR) CHARGE PER UNIT SQ SCH (20:55)
[2017-04-12 05:01] VITALS: BP 152/73
[2017-04-12] MEDS: VITAMIN D3 1,000 UNITS (CHOLECALCIFEROL) TABLET PO SCH ×2 (08:43→21:10)
[2017-04-12] MEDS: PENTOXIFYLLINE 400 MG (TRENtal) TAB PO SCH ×2 (08:43→21:09)
[2017-04-12] MEDS: APIXABAN 5 MG (ELIQUIS) TABLET PO SCH ×2 (08:43→21:09)
[2017-04-12] MEDS: FAMOTIDINE 20 MG (PEPCID) TABLET PO SCH ×2 (08:43→21:09)
[2017-04-12] MEDS: ASPIRIN E.C. 81 MG (ECOTRIN) TAB PO SCH (08:43)
[2017-04-12] MEDS: AZITHROMYCIN 250 MG TAB (ZITHROMAX) PO SCH (08:43)
[2017-04-12] MEDS: metFORMIN XR 500 MG (GLUCOPHAGE XR) TAB PO SCH ×2 (08:43→21:09)
[2017-04-12] MEDS: MEMANTINE 10 MG (NAMENDA) TABLET PO SCH ×2 (08:43→21:10)
[2017-04-12] MEDS: DILTIAZEM 240 MG (CARDIZEM CD) CAP PO SCH (08:44)
[2017-04-12] MEDS: FERROUS SULF 325 MG (IRON) TAB PO SCH (08:44)
[2017-04-12] MEDS: MAGNESIUM OXIDE (MAG-OX)400 MG TAB PO SCH ×2 (08:44→21:09)
--- NOTE | 2017-04-12 09:26 | Progress Note (SOAP) ---
Subjective Subjective/Events-last exam PT REPORTS THAT HE IS FEELING GOOD TODAY - HE STATES THAT HE IS NOT HAVING DIZZINESS, NECK PAIN, WEAKNESS. Review of Systems General: No Chills, No Fatigue, No Malaise Pulmonary: No Dyspnea, No Cough Cardiovascular: No: Chest Pain Gastrointestinal: No: Abdominal Pain, Nausea Neurological: Weakness Objective Exam Vital Signs Date Time Temp Pulse Resp B/P (MAP) Pulse Ox O2 Delivery O2 Flow Rate FiO2 04/12/17 05:01 97.5 75 18 152/73 96 04/11/17 18:12 97.9 71 18 152/71 96 I & O 04/12/17 07:00 Intake Total 1200 ml Balance 1200 ml Capillary Refill : General Appearance: No Apparent Distress, WD/WN HEENT: PERRL/EOMI Neck: Full Range of Motion, Supple Respiratory: Chest Non Tender, Lungs Clear, Normal Breath Sounds Cardiovascular: Regular Rate, Rhythm Gastrointestinal: normal bowel sounds, non tender, soft, no organomegaly, no pulsatile mass Extremity: No Pedal Edema Neurologic/Psychiatric: Alert, Oriented x3, No Motor/Sensory Deficits, Normal Mood/Affect Skin: Warm/Dry Lymphatic: No Adenopathy Results Lab Laboratory Tests 04/11/17 14:11: Glucometer 163H 04/11/17 20:25: Glucometer 193H 04/12/17 04:41: Glucometer 85 04/12/17 09:12: Glucometer 216H Assessment/Plan Assessment/Plan Assess & Plan/Chief Complaint PNEUMONIA DENS PROCESS FRACTURE WEAKNESS DIABETES MELLITUS LOWER EXTREMITY PERIPHERAL NEUROPATHY SPINAL STENOSIS HYPERTENSION ATRIAL FIBRILLATION CHRONIC ANTICOAGULATION PNEUMONIA - ON ANTIBIOTICS - CONTINUE WITH CURRENT TREATMENT WITH AZITHROMYCIN UNTIL DOSE IS FINISHED. DENS PROCESS FRACTURE -THE PATIENT AGREED TO WEARING A SOFT COLLAR - SEE ORTHOPEDIC CONSULT FOR FULL DETAILS - PT TO CONTINUE WITH PHYSICAL THERAPY AND OCCUPATIONAL THERAPY. WEAKNESS - CONTINUE WITH PLANS FOR THERAPY ON INPATIENT REHAB DIABETES MELLITUS - RESUMED LEVEMIR, ACCUCHECK QAC AND QHS SPINAL STENOSIS WITH LOWER EXTREMITY PERIPHERAL NEUROPATHY - MONITOR SYMPTOMS - RESTARTED GABAPENTIN. HYPERTENSION -WITH ATRIAL FIBRILLATION - PT ON DILTIAZEM AND ELIQUIS. Clinical Quality Measures DVT/VTE Risk/Contraindication: Risk Factor Score Per Nursin RFS Level Per Nursing on Admit: 3=High SHEILA ITAN MD April 12, 2017 09:26
--- NOTE | 2017-04-12 10:10 | Physical Therapy Daily Note ---
PT Daily Note-Current Subjective Patient agrees to PT. No c/o at this time. Pain Numeric Pain Scale: 0-No Pain Location: No Pain Reported Mental Status Patient Orientation: Normal For Age Transfers Functional [place] Measure 0=Not Assessed/NA 4=Minimal Assistance 1=Total Assistance 5=Supervision or Setup 2=Maximal Assistance 6=Modified [place] 3=Moderate Assistance 7=Complete IndependenceIRFPAI Quality Coding Scale 6 Independent with activity with or without an assistive device 5 Patient requires set up or clean up by helper. Patient completes activity by themselves 4 Supervision or touching assist (CGA). [place] provide cues , steadying assist 3 The helper provides less than half the effort to complete the activity 2 The helper provides more than half the effort to complete the activity 1 Dependent. The helper does all the effort to complete an activity 7 Patient refused to complete or attempt activity 9 The patient did not perform the activity before the current illness or injury 88 Not attempted due to Medical conditions or safety concerns Transfers (B, C, W/C) (FIM): 6 Scootin Rollin Roll Left to Right (QC): 6 Supine to/from Sit: 6 Sit to/from Stand: 6 Sit to Lying (QC): 6 Sit to Stand (QC): 6 Chair/[id number] Xfer(QC): 6 Bed to/from Chair: 6 Car Transfer (QC): 6 Gait Training Does the Patient Walk?: Yes Gait (FIM): 6 Distance (FIM): 3=150 ft Distance: >500' x 5 Walk 10 feet (QC): 6 Walk 50 ft with 2 Turns(QC): 6 Walk 150 ft (QC): 6 Walking 10ft/uneven surface-QC: 6 Gait Level of Assist: 6 Gait Assistive Device: Cane Single Point reminders to "march" right LE to clear foot to prevent fall. Patient states he has no idea where his feet are when he ambulates due to neuropathy. Stair Training Stair Training: Handrails/: 1 handrail Stairs (FIM): 6 #of Steps: 24 1 Step (curb) (QC): 6 4 Steps (QC): 6 12 Steps (QC): 6 Stairs: Pattern: Reciprocal Level of Assist: 6 Balance Picking up an Object (QC): 6 Exercises Supine Ex: Ankle pumps, Quad Set, Straight leg raise Supine Reps: 20 Seated Therapy Exercises: Ankle pumps, Long arc quads Seated Reps: 20 Standing: Marching (30) Standing Reps: 30 NuStep Minutes: 20 NuStep Workload: 7 (to improve reciprocal movement) Assessment Patient tolerated treatment well and will dismiss to home with spouse this week. Patient is currently at [facility] with all gross motor skills and has been instructed to be up ad cassie in room and hallway PRN. Nursing notified. PT Short Term Goals Short Term Goals Time Frame: April 13, 2017 Gait (FIM): 5 (mdt) PT Clinical Documentation Improvement Specialist Goals Longterm Goals PT Longterm Goals Time Frame: Apr 22, 2017 Transfers (B,C,W/C) (FIM): 7 Sit to Lying (QC): 6 (met 04/12/17) Lying-Sitting on Side/Bed(QC): 6 (met 04/12/17) Sit to Stand (QC): 6 (met 04/12/17) Rollin (met 04/12 17) Roll Left to Right (QC): 6 (met 04/12/17) Chair/[id number]-Xgyqq Xfer(QC): 6 (met 04/12/17) Car Transfer (QC): 6 (met 04/12/17) Does the Patient Walk: Yes Gait (FIM): 6 (met 04/12/17) Gait distance (FIM): 3=150 ft Walk 10 feet (QC): 6 (met 04/12/17) Walk 10ft-Uneven Surface(QC): 6 (met 04/12/17) Walk 50ft with 2 Turns (QC): 6 (met 04/12/17) Walk 150 ft (QC): 6 (met 04/12/17) Gait Level of Assist: 6 (met 04/12/17) Gait Assistive Device: Cane Single Point Does the Pt use WC or Scooter?: No Stairs (FIM): 6 (met 04/12/17) # of Steps: 12 (met 04/12/17) 1 Step (curb) (QC): 6 (met 04/12/17) 4 Steps (QC): 6 (met 04/12/17) 12 Steps (QC): 6 (met 04/12/17) Stairs Level Of Assist: 6 (met 04/12/17) Picking up an Object (QC): 5 (met 04/12/17) PT Plan Treatment/Plan Treatment Plan: Continue Plan of Care Treatment Plan: Bed Mobility, Education, Functional Activity Agustin, Functional Strength, Group Therapy, Gait, Safety, Therapeutic Exercise, Transfers Treatment Duration: Apr 22, 2017 Visits Per Week: 10-15 Minutes/Day (M-F): 60-90 Minutes/Day (Sat/Martinez): PRN Time/GCodes Time In: 910 Time Out: 1010 Total Billed Treatment Time: 60 Total Billed Treatment 1 visit EX x 2 30 min GT x 2 30 min INO WISE PT April 12, 2017 10:10
--- NOTE | 2017-04-12 14:03 | Physical Therapy Daily Note ---
PT Daily Note-Current Subjective Patient is out in [place] area with a friend. Agrees to PT. No c/o at this time. Pain Numeric Pain Scale: 0-No Pain Location: No Pain Reported Mental Status Patient Orientation: Normal For Age Transfers Functional [place] Measure 0=Not Assessed/NA 4=Minimal Assistance 1=Total Assistance 5=Supervision or Setup 2=Maximal Assistance 6=Modified [place] 3=Moderate Assistance 7=Complete IndependenceIRFPAI Quality Coding Scale 6 Independent with activity with or without an assistive device 5 Patient requires set up or clean up by helper. Patient completes activity by themselves 4 Supervision or touching assist (CGA). [employer] provide cues , steadying assist 3 The helper provides less than half the effort to complete the activity 2 The helper provides more than half the effort to complete the activity 1 Dependent. The helper does all the effort to complete an activity 7 Patient refused to complete or attempt activity 9 The patient did not perform the activity before the current illness or injury 88 Not attempted due to Medical conditions or safety concerns Transfers (B, C, W/C) (FIM): 6 Scootin Sit to/from Stand: 6 Sit to Stand (QC): 6 Car Transfer (QC): 6 Gait Training Does the Patient Walk?: Yes Gait (FIM): 6 Distance (FIM): 3=150 ft Distance: 300' x 2 Walk 10 feet (QC): 6 Walk 50 ft with 2 Turns(QC): 6 Walk 150 ft (QC): 6 Gait Level of Assist: 6 Gait Assistive Device: Cane Single Point slight shuffle gait sequence with self correction Exercises NuStep Minutes: 15 (to increase strength and reciprocal movement) NuStep Workload: 10 Assessment Patient is highly motivated with progress and to return to home this week. PT Short Term Goals Short Term Goals Time Frame: April 13, 2017 Gait (FIM): 5 (mdt) PT Section Maintainer Goals Prison Goals PT Section Maintainer Goals Time Frame: Apr 22, 2017 Transfers (B,C,W/C) (FIM): 7 Sit to Lying (QC): 6 (met 04/12/17) Lying-Sitting on Side/Bed(QC): 6 (met 04/12/17) Sit to Stand (QC): 6 (met 04/12/17) Rollin (met 04/12 17) Roll Left to Right (QC): 6 (met 04/12/17) Chair/Ruk-ee-Kosmv Xfer(QC): 6 (met 04/12/17) Car Transfer (QC): 6 (met 04/12/17) Does the Patient Walk: Yes Gait (FIM): 6 (met 04/12/17) Gait distance (FIM): 3=150 ft Walk 10 feet (QC): 6 (met 04/12/17) Walk 10ft-Uneven Surface(QC): 6 (met 04/12/17) Walk 50ft with 2 Turns (QC): 6 (met 04/12/17) Walk 150 ft (QC): 6 (met 04/12/17) Gait Level of Assist: 6 (met 04/12/17) Gait Assistive Device: Cane Single Point Does the Pt use WC or Scooter?: No Stairs (FIM): 6 (met 04/12/17) # of Steps: 12 (met 04/12/17) 1 Step (curb) (QC): 6 (met 04/12/17) 4 Steps (QC): 6 (met 04/12/17) 12 Steps (QC): 6 (met 04/12/17) Stairs Level Of Assist: 6 (met 04/12/17) Picking up an Object (QC): 5 (met 04/12/17) PT Plan Treatment/Plan Treatment Plan: Continue Plan of Care Treatment Plan: Bed Mobility, Education, Functional Activity Agutsin, Functional Strength, Group Therapy, Gait, Safety, Therapeutic Exercise, Transfers Treatment Duration: Apr 22, 2017 Visits Per Week: 10-15 Minutes/Day (M-F): 60-90 Minutes/Day (Sat/Martinez): PRN Time/GCodes Time In: 1325 Time Out: 1355 Total Billed Treatment Time: 30 Total Billed Treatment 1 visit EX 15 min GT 15 min INO WISE PT April 12, 2017 14:03
--- NOTE | 2017-04-12 14:47 | Occupational Ther Daily Note ---
OT Current Status-Daily Note Subjective No pain reported. Appearance Pt. is up in chair. Agrees to treatment. PT states that pt. is up ad cassie. Mental Status/Objective Patient Orientation: Person Functional [place] Measure 0=Not Assessed/NA 4=Minimal Assistance 1=Total Assistance 5=Supervision or Setup 2=Maximal Assistance 6=Modified [place] 3=Moderate Assistance 7=Complete [place] ADL-Treatment Functional [place] Measure 0=Not Assessed/NA 4=Minimal Assistance 1=Total Assistance 5=Supervision or Setup 2=Maximal Assistance 6=Modified [place] 3=Moderate Assistance 7=Complete IndependenceIRFPAI Quality Coding Scale 6 Independent with activity with or without an assistive device 5 Patient requires set up or clean up by helper. Patient completes activity by themselves 4 Supervision or touching assist (CGA). [place] provide cues , steadying assist 3 The helper provides less than half the effort to complete the activity 2 The helper provides more than half the effort to complete the activity 1 Dependent. The helper does all the effort to complete an activity 7 Patient refused to complete or attempt activity 9 The patient did not perform the activity before the current illness or injury 88 Not attempted due to Medical conditions or safety concerns Eating (FIM): 7 Eating (QC): 6 Grooming (FIM): 6 Oral Hygiene (QC): 6 Bathing (FIM): 5 (SBA in shower for safety.) Shower/Bathe Self (QC): 4 Upper Body (FIM): 6 (with safety concerns to retrieve clothing.) Upper Body Dressing (QC): 6 Lower Body Dressing (FIM): 6 (Pt. able to don underwear, pants, shoes, and socks. Does have safety concerns when standing.) Lower Body Dressing (QC): 6 On/Off Footwear (QC): 6 Transfers (B, C, W/C) (FIM): 6 Shower Transfer(FIM): 5 Other Treatment Pt. is up ad cassie. Encouraged to use his cane and neck brace. Pt. does have neck brace on, but states, "I don't like it." Pt. exhibits safety concerns when ambulating. Will hold his cane and is somewhat unsteady on his feet at times. However, states that he is always like this, and that he has neuropathy. After ADLs, pt. ambulated to therapy gym. Tolerated 15 minutes at low resistance on armbike. Donned 1 lb. wrist weights to bilateral UE and completed peg activity to increase fine motor strength/UE strength. Tolerated this well. Ambulated to chapel on first floor and practiced sitting in chapel seat, as he would like to return to [facility]. Pt. able to do this with no difficulty. Ambulated back to room and all needs met. Education OT Patient Education: Modified ADL techniques, Progress toward Goal/Update tx plan, Purpose of tx/functional activities, Reviewed precautions, Rehab process, Transfer techniques Teaching Recipient: Patient Teaching Methods: Demonstration, Discussion Response to Teaching: Verbalize Understanding, Return Demonstration OT Short Term Goals Short Term Goals Time Frame: Apr 15, 2017 Bathing(FIM): 5 Lower Body Dressing(FIM): 5 Toileting(FIM): 5 Toilet/Commode Transfer(FIM): 5 Additional Short Term Goals: 1-Demonstrate ADL Tasks, 2-Verbalize Understanding , 3-ImproveStrength/Agustin 1=Demonstrate adherence to instructed precautions during ADL tasks. 2=Patient will verbalize/demonstrate understanding of assistive devices/ modifications for ADL. 3=Patient will improve strength/tolerance for activity to enable patient to perform ADL's. OT Credit Report Checker Goals Half-Way Goals Time Frame: Apr 29, 2017 Eating (FIM): 6 Eating (QC): 6 Groomin Oral Hygiene (QC): 6 Bathing(FIM): 6 Shower/Bathe Self (QC): 6 Upper Body Dressing(FIM): 6 Upper Body Dressing (QC): 6 Lower Body Dressing(FIM): 5 Lower Body Dressing (QC): 5 On/Off Footwear (QC): 5 Toileting(FIM): 6 Toileting Hygiene (QC): 6 Toilet/Commode Transfer(FIM): 6 Toilet/Commode Transfer (QC): 6 Shower Transfer(FIM): 5 Additional Goals: 1-Demonstrate ADL Tasks, 2-Verbalize Understanding, 3- ImproveStrength/Agustin 1=Demonstrate adherence to instructed precautions during ADL tasks. 2=Patient will verbalize/demonstrate understanding of assistive devices/ modifications for ADL. 3=Patient will improve strength/tolerance for activity to enable patient to perform ADL's. OT Education/Plan Problem List/Assessment Assessment: Decreased Activ Tolerance, Impaired Funct Balance Pt to benefit from skilled OT for ADL training, adaptive equipment training as needed, strengthening, transfer training, and home safety education to maximize level of function and allow safe return home. Discharge Recommendations Plan Pt. declines practicing laundry or cooking tasks. States, "I have never done that, my does, and I don't even know how to turn on the washing machine." Plan/Recommendations: Continue POC Therapy D/C Recommendations: Home w/ Family Support Treatment Plan/Plan of Care Treatment,Training & Education: Yes Patient would benefit from OT for education, treatment and training to promote independence in ADL's, mobility, safety and/or upper extremity function for ADL' s. Plan of Care: ADL Retraining, Functional Mobility, Group Exercise/Act as Ind, UE Funct Exercise/Act Treatment Duration: Apr 29, 2017 Visits Per Week: 10-12 Minutes/Day (M-F): 60-90 Minutes/Day (Sat/Martinez): PRN Agreement: Yes Rehab Potential: Good Time/GCodes Start Time: 10:25 Stop Time: 11:55 Total Time Billed (hr/min): 90 Billed Treatment Time 1, ADL x 45minutes, EX x 15minutes, FA x 30minutes SEBLE GARRISON OT April 12, 2017 14:47
[2017-04-12] MEDS: ALFUZOSIN HCL 10 MG TAB (UROXATRAL) PO SCH (17:44)
[2017-04-12 17:57] VITALS: BP 132/69
[2017-04-12] MEDS: GABAPENTIN 300 MG (NEURONTIN) CAP PO SCH (21:09)
[2017-04-12] MEDS: DONEPEZIL 10 MG (ARICEPT) TAB PO SCH (21:09)
[2017-04-12] MEDS: inSUlin DETERMIR 1 UNIT/0.01 ML (LEVEMIR) CHARGE PER UNIT SQ SCH (21:10)
[2017-04-13 05:47] VITALS: BP 120/72
[2017-04-13] MEDS: metFORMIN XR 500 MG (GLUCOPHAGE XR) TAB PO SCH (09:00)
[2017-04-13] MEDS: FERROUS SULF 325 MG (IRON) TAB PO SCH (09:00)
[2017-04-13] MEDS: MEMANTINE 10 MG (NAMENDA) TABLET PO SCH (09:00)
[2017-04-13] MEDS: DILTIAZEM 240 MG (CARDIZEM CD) CAP PO SCH (09:00)
[2017-04-13] MEDS: PENTOXIFYLLINE 400 MG (TRENtal) TAB PO SCH (09:01)
[2017-04-13] MEDS: APIXABAN 5 MG (ELIQUIS) TABLET PO SCH (09:01)
[2017-04-13] MEDS: ASPIRIN E.C. 81 MG (ECOTRIN) TAB PO SCH (09:01)
[2017-04-13] MEDS: MAGNESIUM OXIDE (MAG-OX)400 MG TAB PO SCH (09:01)
[2017-04-13] MEDS: VITAMIN D3 1,000 UNITS (CHOLECALCIFEROL) TABLET PO SCH (09:01)
[2017-04-13] MEDS: FAMOTIDINE 20 MG (PEPCID) TABLET PO SCH (09:01)
--- NOTE | 2017-04-13 09:41 | Discharge Summary ---
Diagnosis/Chief Complaint Date of Admission April 08, 2017 at 09:38 Date of Discharge Admission Diagnosis Admission Diagnosis PNEUMONIA DENS PROCESS FRACTURE WEAKNESS DIABETES MELLITUS LOWER EXTREMITY PERIPHERAL NEUROPATHY SPINAL STENOSIS HYPERTENSION ATRIAL FIBRILLATION CHRONIC ANTICOAGULATION Reason Hospital Visit PT IS A 76 Y/O MALE WHO FELL AT HOME, HE HAS SPINAL STENOSIS, WEAKNESS OF LOWER EXTREMITIES AND HAS HAD REPEATED FALLING EPISODES. HE ALSO WAS DIAGNOSED WITH PNEUMONIA ON ADMISSION. AFTER ADMISSION HIS CT OF NECK WAS RE-READ AND FOUND TO HAVE A DENS PROCESS FRACTURE. THERE ARE CONFLICTING REPORTS ON THE DENS PROCESS FRACTURE - ORTHO FEELS LIKE PT NEEDS TO WEAR A SOFT COLLAR. HE IS TOO UNSTEADY TO GO HOME AT THIS TIME AND WAS THUS ADMITTED TO INPATIENT REHAB. Discharge Summary Discharge Physical Examination Allergies: Coded Allergies: NKANo Known Allergies (Verified Allergy, Unknown, 01/03/06) Vitals & I&Os Vital Signs Date Time Temp Pulse Resp B/P (MAP) Pulse Ox O2 Delivery O2 Flow Rate FiO2 04/13/17 06:53 94 04/13/17 05:47 98.6 65 18 120/72 Hospital Course Pending Labs Laboratory Tests 04/13/17 05:40: Glucometer 92 Discharge Instructions to patient/family Please see electonic discharge instructions given to patient. Discharge Medications Reviewed and agree with Discharge Medication list on patient's Discharge Instruction sheet Clinical Quality Measures DVT/VTE Risk/Contraindication: Risk Factor Score Per Nursin RFS Level Per Nursing on Admit: 3=High SHEILA TIAN MD April 13, 2017 09:41
--- NOTE | 2017-04-13 09:43 | Discharge Inst-Complex ---
PDI Med Rec & Follow Up Appt. Continued Medications: Albuterol Sulfate (Albuterol Sulfate) 2.5 Mg/3 Ml Vial.neb 2.5 MG IH RTQ4HR PRN for SOA for 10 Days, INHALER Apixaban (Eliquis) 5 Mg Tablet 5 MG PO BID, TAB Aspirin (Aspirin Ec 81 Mg) 81 Mg Tabec 81 MG PO DAILY, TAB Azithromycin (Azithromycin) 250 Mg Tablet 250 MG PO DAILY for 4 Days, TAB Cholecalciferol (Vitamin D3) (Vitamin D3) 1,000 Unit Capsule 1000 UNIT PO DAILY, CAP Cholecalciferol (Vitamin D3) (Vitamin D3) 1,000 Unit Capsule 2000 UNIT PO HS, CAP TAKES 2 (1000 UNIT) CAPSULES Cyanocobalamin (Cyanocobalamin Injection) 1,000 Mcg/Ml Inj 1000 MCG IJ MONTHLY, VIAL Diltiazem HCl (Cartia Xt) 240 Mg Cap.er.24h 240 MG PO HS Donepezil HCl (Donepezil HCl) 10 Mg Tablet 10 MG PO HS Ferrous Sulfate (Feosol) 325 Mg Tablet 325 MG PO DAILY, TAB Gabapentin (Gabapentin) 300 Mg Capsule 300 MG PO HS, CAP Insulin Detemir (Levemir Flextouch) 100 Unit/1 Ml Insuln.pen 30 UNIT SQ HS, EA Lactobacillus Acidophilus (Acidophilus) 1 Each Tablet 1 EACH PO BID, #30 TAB Magnesium Oxide (Magnesium Oxide) 500 Mg Tablet 500 MG PO DAILY, TAB Memantine HCl (Memantine HCl) 10 Mg Tablet 10 MG PO BID Metformin HCl (Metformin HCl ER) 500 Mg Tab.er.24h 500 MG PO BID Multivitamin (Men's Multi-Vitamin) 1 Each Tablet 1 TAB PO DAILY, TAB Mv-Mn/FA/Vit K/Lycop/Lut/Zeaxa (Ocuvite Eye + Multi Tablet) 1 Each Tablet 1 TAB PO DAILY, TAB Pentoxifylline (Pentoxifylline) 400 Mg Tablet.er 400 MG PO BID Potassium (Potassium) 99 Mg Tablet 99 MG PO DAILY, TAB Tamsulosin HCl (Tamsulosin HCl) 0.4 Mg Cap.er.24h 0.4 MG PO DAILY@1800, CAP Tramadol HCl (Tramadol HCl) 50 Mg Tablet 50 MG PO Q8H PRN for PAIN, TAB Discontinued Medications: Amoxicillin (Amoxicillin) 500 Mg Capsule 500 MG PO TID FILLED 04/04/17 #30 FOR A 10 DAY THERAPY Activity, Diet and PDI Resume Normal Activity: No Discharge Diet: ADA Diet Diet for 24 Hours: No Alcohol Drink 6-8 Glasses of Fluid/Day: Yes Driving Instructions: No Driving/Refer to Symptoms to Reoprt to : Appetite Changes, Fever Over 101 Degrees F, Pain/ Pressure in Chest, Cramps in Feet or Legs, Shortness of Breath For Problems or Questions: Contact Your Physician, Go to Emergency Room SHEILA TIAN MD April 13, 2017 09:43
--- NOTE | 2017-04-13 10:01 | Physical Therapy Daily Note ---
PT Daily Note-Current Subjective Patient sitting EOB pre tx, agrees to PT, but is discharging from this facility today. Patient has no complaints of pain. Appearance Patient in room post tx with . Mental Status Patient Orientation: Normal For Age cervical collar Transfers Functional [place] Measure 0=Not Assessed/NA 4=Minimal Assistance 1=Total Assistance 5=Supervision or Setup 2=Maximal Assistance 6=Modified [place] 3=Moderate Assistance 7=Complete IndependenceIRFPAI Quality Coding Scale 6 Independent with activity with or without an assistive device 5 Patient requires set up or clean up by helper. Patient completes activity by themselves 4 Supervision or touching assist (CGA). [place] provide cues , steadying assist 3 The helper provides less than half the effort to complete the activity 2 The helper provides more than half the effort to complete the activity 1 Dependent. The helper does all the effort to complete an activity 7 Patient refused to complete or attempt activity 9 The patient did not perform the activity before the current illness or injury 88 Not attempted due to Medical conditions or safety concerns Transfers (B, C, W/C) (FIM): 6 Sit to/from Stand: 6 Gait Training Gait (FIM): 6 Distance: 1000'x2 Gait Assistive Device: Cane Single Point Patient ambulated outside over sidewalks, uneven surfaces, has a shuffling gait. Exercises NuStep Minutes: 10 NuStep Workload: 8 Treatments transfers, ambulation, functional strengthening Assessment Current Status: Fair Progress good endurance PT Short Term Goals Short Term Goals Time Frame: April 13, 2017 Gait (FIM): 5 (mdt) PT [employer] Member Goals [employer] Member Goals PT Prison Goals Time Frame: Apr 22, 2017 Transfers (B,C,W/C) (FIM): 7 Sit to Lying (QC): 6 (met 04/12/17) Lying-Sitting on Side/Bed(QC): 6 (met 04/12/17) Sit to Stand (QC): 6 (met 04/12/17) Rollin (met 04/12 17) Roll Left to Right (QC): 6 (met 04/12/17) Chair/Skg-ao-Lixrs Xfer(QC): 6 (met 04/12/17) Car Transfer (QC): 6 (met 04/12/17) Does the Patient Walk: Yes Gait (FIM): 6 (met 04/12/17) Gait distance (FIM): 3=150 ft Walk 10 feet (QC): 6 (met 04/12/17) Walk 10ft-Uneven Surface(QC): 6 (met 04/12/17) Walk 50ft with 2 Turns (QC): 6 (met 04/12/17) Walk 150 ft (QC): 6 (met 04/12/17) Gait Level of Assist: 6 (met 04/12/17) Gait Assistive Device: Cane Single Point Does the Pt use WC or Scooter?: No Stairs (FIM): 6 (met 04/12/17) # of Steps: 12 (met 04/12/17) 1 Step (curb) (QC): 6 (met 04/12/17) 4 Steps (QC): 6 (met 04/12/17) 12 Steps (QC): 6 (met 04/12/17) Stairs Level Of Assist: 6 (met 04/12/17) Picking up an Object (QC): 5 (met 04/12/17) PT Plan Problem List Problem List: Activity Tolerance, Functional Strength, Safety, Balance, Gait, Transfer Treatment/Plan Treatment Plan: Continue Plan of Care Treatment Plan: Bed Mobility, Education, Functional Activity Agustin, Functional Strength, Group Therapy, Gait, Safety, Therapeutic Exercise, Transfers Treatment Duration: Apr 22, 2017 Visits Per Week: 10-15 Minutes/Day (M-F): 60-90 Minutes/Day (Sat/Martinez): PRN Safety Risks/Education Patient Education: Gait Training, Transfer Techniques, Safety Issues Teaching Recipient: Patient Teaching Methods: Demonstration, Discussion Response to Teaching: Reinforcement Needed Time/GCodes Time In: 930 Time Out: 955 Total Billed Treatment Time: 25 Total Billed Treatment 1 visit EX 10' GT 15' HARJINDER GAY PT April 13, 2017 10:01
--- NOTE | 2017-04-13 11:51 | Therapy Team Discharge Summary ---
Therapy Discharge Summary Discharge Recommendations Date of Discharge Therapy D/C Recommendations: Home w/ Family Support Physical Therapy Patient came to rehab following pneumonia and an odontoid fx. Upon evaluation patient performed bed mobility with SBA to CGA, transferred with mod assist ( for sit to stand but performs a stand pivot with CGA), ambulated 150' with a single point cane with CGA, and could go up and down 4 steps using 2 handrails with CGA. Patient has been performing bed mobility and transfer training, balance and endurance training, functional strengthening, stair training, gait training and education. Patient has made good progress and has met all of his longterm goals. Now, patient performs bed mobility and transfers with mod I, ambulates over 500' with a single point cane with mod I, and can go up and down 24 steps using 1 handrail with mod I. Patient is being discharged from this facility today and will be discharged from PT at this time. PT Care Home Goals Automatic Toe Laster Goals PT Care Home Goals Time Frame: Apr 22, 2017 Transfers (B,C,W/C) (FIM): 7 Roll Left to Right (QC): 6 (met 04/12/17) Sit to Lying (QC): 6 (met 04/12/17) Lying-Sitting on Side/Bed(QC): 6 (met 04/12/17) Sit to Stand (QC): 6 (met 04/12/17) Chair/Ykh-oi-Cjlii Xfer(QC): 6 (met 04/12/17) Car Transfer (QC): 6 (met 04/12/17) Does the Patient Walk: Yes Gait (FIM): 6 (met 04/12/17) Gait distance (FIM): 3=150 ft Walk 10 feet (QC): 6 (met 04/12/17) Walk 10ft-Uneven Surface(QC): 6 (met 04/12/17) Walk 50ft with 2 Turns (QC): 6 (met 04/12/17) Walk 150 ft (QC): 6 (met 04/12/17) Gait Level of Assist: 6 (met 04/12/17) Gait Assistive Device: Cane Single Point Does the Pt use WC or Scooter?: No Stairs (FIM): 6 (met 04/12/17) # of Steps: 12 (met 04/12/17) 1 Step (curb) (QC): 6 (met 04/12/17) 4 Steps (QC): 6 (met 04/12/17) 12 Steps (QC): 6 (met 04/12/17) Stairs Level Of Assist: 6 (met 04/12/17) Picking up an Object (QC): 5 (met 04/12/17) OT Care Home Goals Care Home Goals Time Frame: Apr 29, 2017 Eating (FIM): 6 Eating (QC): 6 Oral Hygiene (QC): 6 Grooming(FIM): 6 Bathing(FIM): 6 Shower/Bathe Self (QC): 6 Upper Body Dressing(FIM): 6 Upper Body Dressing (QC): 6 Lower Body Dressing(FIM): 5 Lower Body Dressing (QC): 5 On/Off Footwear (QC): 5 Toileting(FIM): 6 Toileting Hygiene (QC): 6 Toilet/Commode Transfer(FIM): 6 Toilet/Commode Transfer (QC): 6 Shower Transfer(FIM): 5 Additional Goals: 1-Demonstrate ADL Tasks, 2-Verbalize Understanding, 3- ImproveStrength/Agustin 1=Demonstrate adherence to instructed precautions during ADL tasks. 2=Patient will verbalize/demonstrate understanding of assistive devices/ modifications for ADL. 3=Patient will improve strength/tolerance for activity to enable patient to perform ADL's. HARJINDER GAY PT April 13, 2017 11:51
[2017-04-13 12:22] VITALS: BP 120/72
--- NOTE | 2017-04-13 15:47 | Therapy Team Discharge Summary ---
Therapy Discharge Summary Discharge Recommendations Date of Discharge April 13, 2017 at 10:50 Therapy D/C Recommendations: Home w/ Family Support Occupational Therapy Pt admitted to ARU following hospitalization for pneumonia and odontoid fx. On admission pt required minimal assistance for bathing, LE dressing, and transfers and SBA for grooming and UE dressing. Skilled OT intervention focused on ADL training, transfers, strengthening, and safety education. Pt progressed with therapy and by discharge is completing grooming, dressing, toileting, and toilet transfer with modified independence; and bathing and shower transfers with supervision. Pt met all goals except bathing. Pt discharging home this date. D/C ARU OT at this time. PT Advanced Developer Goals Long-Term Goals PT Long-Term Goals Time Frame: Apr 22, 2017 Transfers (B,C,W/C) (FIM): 7 Roll Left to Right (QC): 6 (met 04/12/17) Sit to Lying (QC): 6 (met 04/12/17) Lying-Sitting on Side/Bed(QC): 6 (met 04/12/17) Sit to Stand (QC): 6 (met 04/12/17) Chair/Mrh-ye-Mskvk Xfer(QC): 6 (met 04/12/17) Car Transfer (QC): 6 (met 04/12/17) Does the Patient Walk: Yes Gait (FIM): 6 (met 04/12/17) Gait distance (FIM): 3=150 ft Walk 10 feet (QC): 6 (met 04/12/17) Walk 10ft-Uneven Surface(QC): 6 (met 04/12/17) Walk 50ft with 2 Turns (QC): 6 (met 04/12/17) Walk 150 ft (QC): 6 (met 04/12/17) Gait Level of Assist: 6 (met 04/12/17) Gait Assistive Device: Cane Single Point Does the Pt use WC or Scooter?: No Stairs (FIM): 6 (met 04/12/17) # of Steps: 12 (met 04/12/17) 1 Step (curb) (QC): 6 (met 04/12/17) 4 Steps (QC): 6 (met 04/12/17) 12 Steps (QC): 6 (met 04/12/17) Stairs Level Of Assist: 6 (met 04/12/17) Picking up an Object (QC): 5 (met 04/12/17) OT Long-Term Goals Long-Term Goals Time Frame: Apr 29, 2017 Eating (FIM): 6 Eating (QC): 6 Oral Hygiene (QC): 6 Grooming(FIM): 6 Bathing(FIM): 6 Shower/Bathe Self (QC): 6 Upper Body Dressing(FIM): 6 Upper Body Dressing (QC): 6 Lower Body Dressing(FIM): 5 Lower Body Dressing (QC): 5 On/Off Footwear (QC): 5 Toileting(FIM): 6 Toileting Hygiene (QC): 6 Toilet/Commode Transfer(FIM): 6 Toilet/Commode Transfer (QC): 6 Shower Transfer(FIM): 5 Additional Goals: 1-Demonstrate ADL Tasks, 2-Verbalize Understanding, 3- ImproveStrength/Agustin 1=Demonstrate adherence to instructed precautions during ADL tasks. 2=Patient will verbalize/demonstrate understanding of assistive devices/ modifications for ADL. 3=Patient will improve strength/tolerance for activity to enable patient to perform ADL's. JIN BAUGH OT April 13, 2017 15:47
== END 2017-04-13 10:50 | disposition home or self-care (01) | DRG 559 ==
LOC: ENPENDDIS 04-13 10:00
PROVIDERS: ADMIT Family Medicine; ATTEND Physical Medicine & Rehabilitation
DX: S12.110D Anterior displaced Type II dens fracture, subsequent encounter for fracture with routine healing (principal); M48.06 Spinal stenosis, lumbar region; G62.9 Polyneuropathy, unspecified; J18.9 Pneumonia, unspecified organism; E11.9 Type 2 diabetes mellitus without complications; I48.91 Unspecified atrial fibrillation; I25.10 Atherosclerotic heart disease of native coronary artery without angina pectoris; I10 Essential (primary) hypertension; R29.6 Repeated falls; F03.90 Unspecified dementia, unspecified severity, without behavioral disturbance, psychotic disturbance, mood disturbance, and anxiety; N40.0 Benign prostatic hyperplasia without lower urinary tract symptoms; Z79.4 Long term (current) use of insulin; Z79.01 Long term (current) use of anticoagulants; W19.XXXD Unspecified fall, subsequent encounter
CPT/HCPCS: 82962; 94760

== ENCOUNTER → 2018-12-06 | Outpatient (CLI) | payer MEDICARE, OTHER ==
[~2018-12-06] VITALS: Ht 188 cm; Wt 102.1 kg
[~2018-12-06] MED LIST changes: +AZIT250T12 PO; -AZIT250T5 PO; +METF-397 PO; +METF-398 PO; -METF500T4 PO; -METF850T2 PO; +PENT400T9 PO; +REGADENOSON 0.4 MG/5 ML SYR (LEXISCAN) IV ONE
[2018-12-06] MEDS: CATHETER FLUSH 10 ML SYR IV PRN ×2 (07:43→09:11)
[2018-12-06 09:09] VITALS: BP 152/69
--- NOTE | 2018-12-06 15:54 | STRESS TEST ---
DATE OF SERVICE: 12/06/2018 LEXISCAN MYOVIEW STRESS TEST REPORT Baseline heart rate is 65, baseline blood pressure 152/69. Baseline EKG is sinus rhythm with no ischemic changes. In summary, the patient was injected with 10.08 mCi of technetium-99 Myoview and the resting images were obtained. Then, the patient received 0.4 mg of Lexiscan, followed by 28.5 mCi of technetium-99 Myoview. Throughout the test, there were no EKG changes. The resting and stress images were reviewed and compared in the short axis, horizontal long axis, and vertical long axis views. Review of the images showed diaphragmatic attenuation with mild decreased uptake involving the mid to apical anterolateral and inferolateral wall with mild reversibility. SSS is 9, SDS 5, TID value 1.0. On the gated images, the left ventricle appeared to be normal size with normal contractility. Calculated ejection fraction 60%. CONCLUSION: 1. The patient tolerated Lexiscan well. 2. Mild ischemia with diaphragmatic attenuation affecting the quality of the images involving the mid to apical anterolateral and inferolateral wall. 3. Normal left ventricular size with normal contractility. Calculated ejection fraction 60%. Job ID: [id number] DocumentID: [id number] Dictated Date: 12/06/2018 15:38:28 Pasteurizing Supervisor Date: 12/06/2018 15:53:42 Dictated By: JAMIL ZEPEDA MD
== END ==
LOC: CARD 07:09
PROVIDERS: ATTEND Internal Medicine Cardiovascular Disease
DX: I25.10 Atherosclerotic heart disease of native coronary artery without angina pectoris (principal); I48.92 Unspecified atrial flutter; E11.9 Type 2 diabetes mellitus without complications; I07.1 Rheumatic tricuspid insufficiency
CPT/HCPCS: 78452; 93017; 93306

== ENCOUNTER 2019-06-18 18:45 | Emergency (ER) | payer MEDICARE, OTHER ==
[~2019-06-18] VITALS: Ht 182.9 cm; Wt 96.2 kg
[~2019-06-18 18:45] MED LIST changes: -PENT400T9 PO; +PNT400TCR PO; -REGADENOSON 0.4 MG/5 ML SYR (LEXISCAN) IV ONE
--- NOTE | 2019-06-18 19:03 | NUR ---
pt here with per . pt alert gcs 15. pt apparantely had mohs surgery for skin cancer to prox. just below right ear recently. the area started bleeding. currently pt with minimal bleeding noted thru direct pressure kerlex 4x4s. to area. pt denies chest pain and dyspnea and no acute sighns of dyspnea noted. i cleaned pt up . bp machine is 124/66 . p ox r/a is 94. says pt also has mets from the cancer. done nichole pt at 1910.
--- NOTE | 2019-06-18 19:36 | NUR ---
kerlex 4x4s are 1/2 saturated.
--- NOTE | 2019-06-18 19:51 | ED EENT ---
History of Present Illness General Chief Complaint: General Problems/Pain Stated Complaint: R SIDE OF NECK BLEEDING Nursing Triage Note: Patient brought to ER with complaint of bleeding from right ear. Patient has history of skin cancer to [facility] and is scheduled for Mohs surgery tomorrow. Patient's states the ear started bleeding 5 hours ago and she has not been able to get the bleeding to stop. patient is on Eliquis and Aspirin daily. Spouse did put flour on the bleeding to see if it would stop it with no success. Source: patient Exam Limitations: no limitations History of Present Illness Date Seen by Provider: Jun 18, 2019 Time Seen by Provider: 19:47 Initial Comments To ER with reports of a bleeding wound on the face. Patient had a skin cancer biopsy just below the right ear on Tuesday. Today while putting Vaseline on it began to bleed. He is scheduled to have MOHS surgery on this tomorrow at a dermatology clinic in [facility]. He is on Eliquis. Timing/Duration: this afternoon Severity: mild Associated Symptoms: denies symptoms Allergies and Home Medications Allergies Coded Allergies: RENZOANo Known Allergies (Verified Allergy, Unknown, 01/03/06) Home Medications Albuterol Sulfate 2.5 Mg/3 Ml Vial.neb, 2.5 MG IH RTQ4HR PRN for SOA Prescribed by: SHEILA TIAN on 04/08/17856 Apixaban 5 Mg Tablet, 5 MG PO BID, (Reported) Aspirin 81 Mg Tabec, 81 MG PO DAILY, (Reported) Azithromycin 250 Mg Tablet, 250 MG PO DAILY Prescribed by: SHEILA TIAN on 04/08/17856 Cholecalciferol (Vitamin D3) 1,000 Unit Capsule, 1,000 UNIT PO DAILY, (Reported) Cholecalciferol (Vitamin D3) 1,000 Unit Capsule, 2,000 UNIT PO HS, (Reported) TAKES 2 (1000 UNIT) CAPSULES Cyanocobalamin 1,000 Mcg/Ml Inj, 1,000 MCG IJ MONTHLY, (Reported) Diltiazem HCl 240 Mg Cap.er.24h, 240 MG PO HS, (Reported) Donepezil HCl 10 Mg Tablet, 10 MG PO HS, (Reported) Ferrous Sulfate 325 Mg Tablet, 325 MG PO DAILY, (Reported) Gabapentin 300 Mg Capsule, 300 MG PO HS, (Reported) Insulin Detemir 100 Unit/1 Ml Insuln.pen, 30 UNIT SQ HS, (Reported) Lactobacillus Acidophilus 1 Each Tablet, 1 EACH PO BID Prescribed by: SHEILA TIAN on 04/08/17 0913 Magnesium Oxide 500 Mg Tablet, 500 MG PO DAILY, (Reported) Memantine HCl 10 Mg Tablet, 10 MG PO BID, (Reported) Metformin HCl 500 Mg Tab.er.24h, 500 MG PO BID, (Reported) Multivitamin 1 Each Tablet, 1 TAB PO DAILY, (Reported) Mv-Mn/FA/Vit K/Lycop/Lut/Zeaxa 1 Each Tablet, 1 TAB PO DAILY, (Reported) Pentoxifylline 400 Mg Tablet.er, 400 MG PO BID, (Reported) Potassium 99 Mg Tablet, 99 MG PO DAILY, (Reported) Tamsulosin HCl 0.4 Mg Cap.er.24h, 0.4 MG PO DAILY@1800, (Reported) Tramadol HCl 50 Mg Tablet, 50 MG PO Q8H PRN for PAIN, (Reported) Patient Home Medication List Home Medication List Reviewed: Yes Review of Systems Review of Systems Constitutional: see HPI Eyes: No Symptoms Reported Ears: See HPI Nose: no symptoms reported Mouth: no symptoms reported Throat: no symptoms reported Respiratory: no symptoms reported Cardiovascular: no symptoms reported Musculoskeletal: no symptoms reported Past Eqcplhl-Ctiale-Xorryp Hx Patient Social History Alcohol Use: Denies Use Recreational Drug Use: No Smoking Status: Former Smoker Type Used: Cigarettes Former Smoker, Quit: May 30, 1986 2nd Hand Smoke Exposure: No Recent Foreign Travel: No Contact w/Someone Who Travel: No Recent Infectious Disease Expo: No Recent Hopitalizations: No Physical Abuse: No Sexual Abuse: No Mistreated: No Fear: No Immunizations Up To Date Tetanus Booster (TDap): More than 5yrs Date of Pneumonia Vaccine: Jul 15, 2015 Date of Influenza Vaccine: Aug 17, 2016 Seasonal Allergies Seasonal Allergies: No Past Medical History Surgeries: Yes (CABG) Cardiac, CABG, Eye Surgery Respiratory: No Cardiac: Yes Atrial Fibrillation, Coronary Artery Disease, High Cholesterol, Hypertension, Peripheral Vascular Neurological: Yes Dementia Reproductive Disorders: No Sexually Transmitted Disease: No HIV/AIDS: No Genitourinary: Yes Benign Prostatic Hyperpl, Prostate Problems Gastrointestinal: No Musculoskeletal: Yes (LUMBAR SPINAL STENOSIS. unable to ambulate without assistance) Chronic Back Pain Endocrine: Yes Diabetes, Insulin dep Cataract Hearing Impairment: Hard of Hearing, Hearing Aide Right, Hearing Aide Left Cancer: Yes Skin, Melanoma Did You Recieve Any Treatments: Yes What Type of Treatment Did You: Chemotherapy, Surgical Intervention, Other chemotherapy creams for skin cancer Psychosocial: No Integumentary: Yes (skin cancer) Blood Disorders: No Adverse Reaction/Blood Tranf: No Family Medical History Diabetes mellitus 19 MOTHER G8 SISTER FH: bladder cancer G8 SISTER FH: lupus G8 SISTER Heart Disease, Cancer, Diabetes, Hypertension Physical Exam Vital Signs Vital Signs - First Documented 06/18/19 18:58 Temp 97.7 Pulse 73 Resp 18 B/P (MAP) 124/66 (85) Pulse Ox 96 O2 Delivery Room Air Height, Weight, BMI Height: 6'0" Weight: 212lbs. 0.0oz. 96.498410gj; 28.9 BMI Method:Stated General Appearance: WD/WN, no apparent distress Eyes: bilateral eye normal inspection, bilateral eye PERRL, bilateral eye EOMI Ears: bilateral ear auricle normal, bilateral ear canal normal, bilateral ear TM normal Mouth/Throat: normal mouth inspection, pharynx normal Neck: non-tender, full range of motion Neurologic/Psychiatric: alert, normal mood/affect, oriented x 3 Skin: normal color, warm/dry Progress/Results/Core Measures Results/Orders My Orders Orders - PHUONG WARNER APRN Lidocaine/Epi 2% 1:100,000 (Xylocaine/Ep (06/18/19 20:00) Medications Given in ED Current Medications Medications Dose Ordered Sig/Yenny Route Start Time Stop Time Status Last Admin Dose Admin Lidocaine/ Epinephrine 2 ml ONCE ONCE INJ 06/18/19 20:00 06/18/19 20:01 DC 06/18/19 19:50 2 ML Vital Signs/I&O 06/18/19 18:58 Temp 97.7 Pulse 73 Resp 18 B/P (MAP) 124/66 (85) Pulse Ox 96 O2 Delivery Room Air Blood Pressure Mean: 85 Departure Communication (Admissions) Silver nitrate and lidocaine with epinephrine injection were used to control the bleeding in this area. Impression Primary Impression: post operative bleeding Disposition: 01 HOME, SELF-CARE Condition: Stable Departure-Patient Inst. Decision time for Depature: 19:51 Referrals: SHEILA TIAN MD (PCP/Family) Primary Care Physician Patient Instructions: Wound Care Add. Discharge Instructions: All discharge instructions reviewed with patient and/or family. Voiced understanding. Images Ear 1 - Blood Head/Face 1 - PHUONG WARNER GASOLINE SERVICE ATTENDANT Jun 18, 2019 19:51
--- NOTE | 2019-06-18 19:53 | NUR ---
in room cauterizing wound with silver nitrate sticks and lido with epi.
[2019-06-18] MEDS ORDERED: LIDOCAINE/EPI 2% 1:100,00 (XYLOCAINE) 20 ML VIAL INJ ONE (20:00)
[2019-06-18 20:28] VITALS: BP 134/75
--- NOTE | 2019-06-18 20:28 | NUR ---
pt had no bleeding at d/c.
--- NOTE | 2019-06-18 20:28 | NUR ---
d/c instructions to pt and . told to read all papers. no scripts given. pt left in w/c with . i helped pt to the car. pt and knows f/u. no handtyped by information on the chart. pt had no iv.
== END 2019-06-18 20:28 | disposition home or self-care (01) ==
LOC: EDUNIT# 18:45 → ER 18:46
DX: G89.18 Other acute postprocedural pain (principal); I10 Essential (primary) hypertension; E11.9 Type 2 diabetes mellitus without complications; I25.10 Atherosclerotic heart disease of native coronary artery without angina pectoris; I48.91 Unspecified atrial fibrillation; F03.90 Unspecified dementia, unspecified severity, without behavioral disturbance, psychotic disturbance, mood disturbance, and anxiety; E78.00 Pure hypercholesterolemia, unspecified; Z85.820 Personal history of malignant melanoma of skin; Z80.52 Family history of malignant neoplasm of bladder; Z85.828 Personal history of other malignant neoplasm of skin; Z79.82 Long term (current) use of aspirin; Z79.01 Long term (current) use of anticoagulants; Z79.4 Long term (current) use of insulin; Z87.891 Personal history of nicotine dependence; Z95.1 Presence of aortocoronary bypass graft; Z82.49 Family history of ischemic heart disease and other diseases of the circulatory system
CPT/HCPCS: 99281

== ENCOUNTER → 2020-01-10 | Outpatient (CLI) | payer MEDICARE, OTHER ==
[~2020-01-10] MED LIST changes: +ACHYD1T PO; -HYDR-3820 PO; +MAGN400T8 PO; -MEMA10TA22 PO; +MEMA10TA57 PO; +METF500T19 PO; -METF500T8 PO; -TRAM50TA2 PO; +TRM50T PO
[2020-01-11 15:10] LABS: ABSOLUTE RETIC # 41 10e9/L (24-90)
[2020-01-11 15:39] LABS: BASOPHILS % (MANUAL) 1 %; EOSINOPHILS % (MANUAL) 1 %; MONOCYTES % (MANUAL) 10 %; NEUTROPHILS % (MANUAL) 65 %
[2020-01-11 15:40] LABS: CRENATED RBC SLIGHT; LYMPHOCYTES % (MANUAL) 23 %
== END ==
LOC: LABNPT 17:52
PROVIDERS: ATTEND Family Medicine
DX: D72.829 Elevated white blood cell count, unspecified (principal)
CPT/HCPCS: 85007; 85045

== ENCOUNTER → 2020-01-16 | Outpatient (CLI) | payer MEDICARE ==
--- NOTE | 2020-01-16 13:05 | Diagnostic Imaging Report ---
PROCEDURE: CT head without contrast. TECHNIQUE: Multiple contiguous axial images were obtained through the brain without the use of intravenous contrast. Auto Exposure Controls were utilized during the CT exam to meet ALARA standards for radiation dose reduction. INDICATION: Headaches. COMPARISON: Comparison made to the prior study from April 05, 2017. FINDINGS: There are no CT findings of acute intracranial hemorrhage. There is advanced age-related global volume loss. There is significant ventriculomegaly. While there is a large degree of volume loss present, there does appear to be crowding of the sulci at the high vertex. Features suggest the possibility of normal pressure hydrocephalus. Correlate for any known appropriate clinical symptomatology. There are some background microvascular changes demonstrated within the white matter but no findings of a territorial infarct. There is no abnormal low density within the basal ganglia or within the evita. There is no abnormal extra-axial collection. The basal cisterns are patent. Mastoid air cells appear clear. The visualized portions of the paranasal sinuses are clear. Visualized portion of the orbits is unremarkable. No acute calvarial abnormality demonstrated. IMPRESSION: 1. Age-related global volume loss. There is marked ventriculomegaly. While this is likely in part due to ex vacuo dilatation, there does appear to be some crowding of the sulci at the high vertex. In the appropriate clinical setting, normal pressure hydrocephalus could not be excluded. 2. No CT findings of an acute intracranial abnormality. Dictated by: Dictated on workstation # [id number]
== END ==
LOC: RAD 11:53
PROVIDERS: ATTEND Nurse Practitioner Family
DX: G93.89 Other specified disorders of brain (principal); R51 Headache
CPT/HCPCS: 70450

== ENCOUNTER 2020-03-26 09:47 | Outpatient (RCR) | payer MEDICARE, OTHER ==
[2020-03-19] MEDS: FERRIC CARBOXYMALTOSE INJ 750 MG in NS (IVPB) 250 ML IV SCH (11:34)
[2020-03-19 13:15] VITALS: BP 140/74
[~2020-03-26] VITALS: Ht 182.9 cm; Wt 96.3 kg
[2020-03-26] MEDS: FERRIC CARBOXYMALTOSE INJ 750 MG in NS (IVPB) 250 ML IV SCH (10:05)
[2020-03-26 10:55] VITALS: BP 143/63
== END 2020-03-26 10:55 | disposition home or self-care (01) ==
LOC: SDC 09:47
PROVIDERS: ATTEND Nurse Practitioner Family
DX: D50.9 Iron deficiency anemia, unspecified (principal)
CPT/HCPCS: 96365

== ENCOUNTER → 2020-04-25 | Outpatient (CLI) | payer MEDICARE, OTHER ==
[~2020-04-25] MED LIST changes: +METF-865 PO; -METF500T19 PO
[2020-04-25 13:22] LABS: RETICULOCYTE % 1.07 % (0.50-2.40)
== END ==
LOC: LABNPT 13:19
PROVIDERS: ATTEND Family Medicine
DX: Z01.812 Encounter for preprocedural laboratory examination (principal)
CPT/HCPCS: 85045

== ENCOUNTER 2021-05-22 08:52 | Inpatient (IN) | payer MEDICARE, OTHER ==
[~2021-05-22] VITALS: Ht 185 cm; Wt 82.0 kg
[~2021-05-22 08:52] MED LIST changes: -CLIN300C11 PO; +CLIN300C12 PO; -SULF1TAB35 PO; +SULF1TAB38 PO
[2021-05-22] MEDS ORDERED: NS IV 1000 ML 1,000 ML ONE (09:20)
[2021-05-22 09:29] LABS: BASOPHILS # (AUTO) 0.1 10^3/uL (0.0-0.1); BASOPHILS % (AUTO) 1 % (0-10); EOSINOPHILS % (AUTO) 0 % (0-10); HEMATOCRIT 43 % (40-54); HEMOGLOBIN 14.2 g/dL (13.3-17.7); LYMPHOCYTES # (AUTO) 1.8 10^3/uL (1.0-4.0); LYMPHOCYTES % (AUTO) 12 % (12-44); MEAN CORPUSCULAR HEMOGLOBIN 28 pg (25-34); MEAN CORPUSCULAR HGB CONC 33 g/dL (32-36); MEAN CORPUSCULAR VOLUME 86 fL (80-99); MEAN PLATELET VOLUME 9.6 fL (9.0-12.2); MONOCYTES # (AUTO) 1.6 10^3/uL (0.0-1.0); MONOCYTES % (AUTO) 11 % (0-12); NEUTROPHILS # (AUTO) 11.3 10^3/uL (1.8-7.8); NEUTROPHILS % (AUTO) 76 % (42-75); PLATELET COUNT 359 10^3/uL (130-400); WHITE BLOOD COUNT 14.9 10^3/uL (4.3-11.0)
[2021-05-22] MEDS ORDERED: NS IV 1000 ML 1,000 ML IV SCH (09:30)
[2021-05-22 09:31] LABS: BILIRUBIN,URINE NEGATIVE (NEGATIVE); CLARITY,URINE CLEAR; COLOR,URINE YELLOW; GLUCOSE, URINE (UA) NEGATIVE (NEGATIVE); KETONES,URINE TRACE (NEGATIVE); LEUKOCYTE ESTERASE ,URINE NEGATIVE (NEGATIVE); NITRITE,URINE NEGATIVE (NEGATIVE); PROTEIN,URINE 1+ (NEGATIVE)
[2021-05-22 09:32] LABS: ALBUMIN 3.9 GM/DL (3.2-4.5); CHLORIDE 101 MMOL/L (98-107); POTASSIUM 3.9 MMOL/L (3.6-5.0); SODIUM 140 MMOL/L (135-145)
[2021-05-22 09:33] LABS: CALCIUM 8.8 MG/DL (8.5-10.1)
[2021-05-22 09:34] LABS: GLUCOSE 193 MG/DL (70-105); TOTAL PROTEIN 7.3 GM/DL (6.4-8.2)
[2021-05-22 09:35] LABS: CARBON DIOXIDE 27 MMOL/L (21-32)
[2021-05-22 09:36] LABS: BILIRUBIN,TOTAL 0.4 MG/DL (0.1-1.0); FIBRIN DEGRADATION PRODUCTS 1.38 UG/ML (0.00-0.49); PROTHROMBIN TIME PATIENT 13.2 SEC (12.2-14.7)
[2021-05-22 09:38] LABS: ALKALINE PHOSPHATASE 88 U/L (40-136); CREATININE SERUM 1.04 MG/DL (0.60-1.30); GFR ESTIMATED > 60
[2021-05-22 09:39] LABS: BUN/CREATININE RATIO 11
[2021-05-22 09:41] LABS: ALANINE AMINOTRANSFERASE 18 U/L (0-55)
[2021-05-22 09:48] LABS: BACTERIA,URINE NEGATIVE /HPF; RBC,URINE 0-2 /HPF; SQUAMOUS EPITHELIAL CELL,UR RARE /HPF; WBC,URINE RARE /HPF
[2021-05-22 10:02] LABS: ANISOCYTOSIS SLIGHT; BAND NEUTROPHILS 6 %; BASOPHILS % (MANUAL) 0 %; EOSINOPHILS % (MANUAL) 0 %; LYMPHOCYTES % (MANUAL) 8 %; MONOCYTES % (MANUAL) 9 %; NEUTROPHILS % (MANUAL) 77 %
--- NOTE | 2021-05-22 10:13 | Diagnostic Imaging Report ---
INDICATION: Dementia and exposure to COVID. Comparison made with prior examination of 04/04/2017. The heart size is stable. There has been previous median sternotomy and coronary bypass graft. No pleural effusion, pneumothorax or pneumonia. Mediastinum is unremarkable. IMPRESSION: No acute cardiopulmonary abnormality. Dictated by: Dictated on workstation # [id number]
[2021-05-22] MEDS ORDERED: dexAMETHasone 6 MG TAB (DECADRON) PO STA (10:28)
--- NOTE | 2021-05-22 10:37 | ED General ---
General Chief Complaint: Cough/Cold/Flu Symptoms Stated Complaint: SOB Nursing Triage Note: PT ARRIVED PER EMS PT HAS DEMENTIA, PT HAS HAD RECENT EXPOSURE TO COVID AND HAS BEEN SICK FOR APPROX 5 DAYS. DENIES FEVERS, NO DIARREAH, HAS COUGH AND WEAKNESS. PT HAS HAD BOTH VACCINES OF PFIZER. PT HAS IVF NS INFUSING @OPEN IN [facility]. ALSO SICK Source of Information: Patient Exam Limitations: No Limitations History of Present Illness Date Seen by Provider: May 22, 2021 Time Seen by Provider: 09:15 Initial Comments Here with report of congestion, sore throat, weakness and overall not feeling well for the past 5 to 7 days. His is also sick and arrives by separate EMS. They did have exposure to the patient's daughter last Tuesday 10 days ago. He is vaccinated with the Pfizer vaccine x2. Daughter was sick but did not get tested although there was concerns that she may have had Covid. 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 Not currently hypoxic. He is weak and confused. Timing/Duration: 1 Week, Getting Worse Severity: Moderate Associated Systoms: Cough; No Fever/Chills, No Nausea/Vomiting, No Shortness of Air; Weakness Allergies and Home Medications Allergies Coded Allergies: NKANo Known Allergies (Verified Allergy, Unknown, 01/03/06) Home Medications Albuterol Sulfate 2.5 Mg/3 Ml Vial.neb, 2.5 MG IH RTQ4HR PRN for SOA Prescribed by: SHEILA ACEVES on 04/08/1757 Apixaban 5 Mg Tablet, 5 MG PO BID, (Reported) Aspirin 81 Mg Tabec, 81 MG PO DAILY, (Reported) Azithromycin 250 Mg Tablet, 250 MG PO DAILY Prescribed by: SHEILA ACEVES on 04/08/1757 Cholecalciferol (Vitamin D3) 1,000 Unit Capsule, 1,000 UNIT PO DAILY, (Reported) Cholecalciferol (Vitamin D3) 1,000 Unit Capsule, 2,000 UNIT PO HS, (Reported) TAKES 2 (1000 UNIT) CAPSULES Cyanocobalamin 1,000 Mcg/Ml Inj, 1,000 MCG IJ MONTHLY, (Reported) Diltiazem HCl 240 Mg Cap.er.24h, 240 MG PO HS, (Reported) Donepezil HCl 10 Mg Tablet, 10 MG PO HS, (Reported) Ferrous Sulfate 325 Mg Tablet, 325 MG PO DAILY, (Reported) Gabapentin 300 Mg Capsule, 300 MG PO HS, (Reported) Insulin Detemir 100 Unit/1 Ml Insuln.pen, 30 UNIT SQ HS, (Reported) Lactobacillus Acidophilus 1 Each Tablet, 1 EACH PO BID Prescribed by: SHEILA ACEVES on 04/08/17 0913 Magnesium Oxide 500 Mg Tablet, 500 MG PO DAILY, (Reported) Memantine HCl 10 Mg Tablet, 10 MG PO BID, (Reported) Metformin HCl 500 Mg Tab.er.24h, 500 MG PO BID, (Reported) Multivitamin 1 Each Tablet, 1 TAB PO DAILY, (Reported) Mv-Mn/FA/Vit K/Lycop/Lut/Zeaxa 1 Each Tablet, 1 TAB PO DAILY, (Reported) Pentoxifylline 400 Mg Tablet.er, 400 MG PO BID, (Reported) Potassium 99 Mg Tablet, 99 MG PO DAILY, (Reported) Tamsulosin HCl 0.4 Mg Cap.er.24h, 0.4 MG PO DAILY@1800, (Reported) Tramadol HCl 50 Mg Tablet, 50 MG PO Q8H PRN for PAIN, (Reported) Patient Home Medication List Home Medication List Reviewed: Yes Review of Systems Review of Systems Constitutional: see HPI; No fever; weakness EENTM: nose congestion, throat pain Respiratory: cough; No short of breath Cardiovascular: No chest pain; edema Gastrointestinal: No diarrhea, No vomiting Genitourinary: no symptoms reported Musculoskeletal: no symptoms reported Skin: change in color (Groin area but had wet brief on.); No lesions Psychiatric/Neurological: See HPI, Weakness All Other Systems Reviewed Negative Unless Noted: Yes Past Vovqjwt-Ktppmt-Eztehz Hx Patient Social History Tobacco Use?: No Substance use?: No Pt feels they are or have been: No Immunizations Up To Date Tetanus Booster (TDap): More than 5yrs Second COVID19 Vaccination Leoncio: STATES HAS BOTH VACCINES COVID19 Vaccine 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 unable to ambulate without assistance) Chronic Back Pain Endocrine: Yes Diabetes, Insulin dep Cataract Hearing Impairment: Hard of Hearing, Hearing Aide Right, Hearing Aide Left Cancer: Yes Skin, Melanoma Did You Recieve Any Treatments: Yes What Type of Treatment Did You: Chemotherapy, Surgical Intervention, Other Psychosocial: No Integumentary: Yes (skin cancer) Blood Disorders: No Adverse Reaction/Blood Tranf: No Family Medical History Diabetes mellitus 19 MOTHER G8 SISTER FH: bladder cancer G8 SISTER FH: lupus G8 SISTER Heart Disease, Cancer, Diabetes, Hypertension Physical Exam-Suspected Sepsis Physical Exam Vital Signs Vital Signs - First Documented 05/22/21 08:52 Temp 36.7 Pulse 97 Resp 16 B/P (MAP) 146/84 (104) Pulse Ox 95 O2 Delivery Room Air Capillary Refill : Less Than 3 Seconds Blood Pressure Mean: 104 Height, Weight, BMI Height: 6'0" Weight: 212lbs. 0.0oz. [id number]; 23.00 BMI Method:Stated General Appearance: No Apparent Distress, WD/WN HEENT: PERRL/EOMI, Pharyngeal Erythema Neck: Non Tender, Supple Respiratory: Lungs Clear, No Accessory Muscle Use Cardiovascular: No Murmur, Tachycardia Gastrointestinal: Non Tender, Soft Back: Normal Inspection, No CVA Tenderness, No Vertebral Tenderness Extremity: Normal Range of Motion, Non Tender Neurologic/Psychiatric: Alert, Other (Has some baseline confusion but answers questions appropriately and follows commands. Does have history of dementia) Skin: warm/dry, other (Erythema noted to the area of the groin but did have what brief on. Does not seem to have sores otherwise.) Focused Exam Lactate Level 05/22/21 08:53: Lactic Acid Level 1.50 Lactic Acid Level Laboratory Tests Test 05/22/21 08:53 Lactic Acid Level 1.50 MMOL/L (0.50-2.00) Progress/Results/Core Measures Suspected Sepsis SIRS Temperature: Pulse: 97 Respiratory Rate: 16 Laboratory Tests 05/22/21 08:53: White Blood Count 14.9H Blood Pressure 146 /84 Mean: 104 05/22/21 08:53: Lactic Acid Level 1.50 Laboratory Tests 05/22/21 08:53: Creatinine 1.04, INR Comment 1.0, Platelet Count 359, Total Bilirubin 0.4 Results/Orders Lab Results Laboratory Tests Test 05/22/21 08:53 Range/Units White Blood Count 14.9 H 4.3-11.0 10^3/uL Red Blood Count 5.04 4.30-5.52 10^6/uL Hemoglobin 14.2 13.3-17.7 g/dL Hematocrit 43 40-54 % Mean Corpuscular Volume 86 80-99 fL Mean Corpuscular Hemoglobin 28 25-34 pg Mean Corpuscular Hemoglobin Concent 33 32-36 g/dL Red Cell Distribution Width 15.4 H 10.0-14.5 % Platelet Count 359 130-400 10^3/uL Mean Platelet Volume 9.6 9.0-12.2 fL Immature Granulocyte % (Auto) 1 % Neutrophils (%) (Auto) 76 H 42-75 % Lymphocytes (%) (Auto) 12 12-44 % Monocytes (%) (Auto) 11 0-12 % Eosinophils (%) (Auto) 0 0-10 % Basophils (%) (Auto) 1 0-10 % Neutrophils # (Auto) 11.3 H 1.8-7.8 10^3/uL Lymphocytes # (Auto) 1.8 1.0-4.0 10^3/uL Monocytes # (Auto) 1.6 H 0.0-1.0 10^3/uL Eosinophils # (Auto) 0.0 0.0-0.3 10^3/uL Basophils # (Auto) 0.1 0.0-0.1 10^3/uL Immature Granulocyte # (Auto) 0.1 0.0-0.1 10^3/uL Neutrophils % (Manual) 77 % Lymphocytes % (Manual) 8 % Monocytes % (Manual) 9 % Eosinophils % (Manual) 0 % Basophils % (Manual) 0 % Band Neutrophils 6 % Anisocytosis SLIGHT Prothrombin Time 13.2 12.2-14.7 SEC INR Comment 1.0 0.8-1.4 Activated Partial Thromboplast Time 35 24-35 SEC D-Dimer 1.38 H 0.00-0.49 UG/ML Urine Color YELLOW Urine Clarity CLEAR Urine pH 6.0 5-9 Urine Specific [place] 1.025 H 1.016-1.022 Urine Protein 1+ H NEGATIVE Urine Glucose (UA) NEGATIVE NEGATIVE Urine Ketones TRACE H NEGATIVE Urine Nitrite NEGATIVE NEGATIVE Urine Bilirubin NEGATIVE NEGATIVE Urine Urobilinogen 0.2 < = 1.0 MG/DL Urine Leukocyte Esterase NEGATIVE NEGATIVE Urine RBC (Auto) TRACE-I NEGATIVE Urine RBC 0-2 /HPF Urine WBC RARE /HPF Urine Squamous Epithelial Cells RARE /HPF Urine Crystals NONE /LPF Urine Bacteria NEGATIVE /HPF Urine Casts NONE /LPF Urine Mucus NEGATIVE /LPF Urine Culture Indicated NO Sodium Level 140 135-145 MMOL/L Potassium Level 3.9 3.6-5.0 MMOL/L Chloride Level 101 98-107 MMOL/L Carbon Dioxide Level 27 21-32 MMOL/L Anion Gap 12 5-14 MMOL/L Blood Urea Nitrogen 11 7-18 MG/DL Creatinine 1.04 0.60-1.30 MG/DL Estimat Glomerular Filtration Rate > 60 BUN/Creatinine Ratio 11 Glucose Level 193 H 70-105 MG/DL Lactic Acid Level 1.50 0.50-2.00 MMOL/L Calcium Level 8.8 8.5-10.1 MG/DL Corrected Calcium 8.9 8.5-10.1 MG/DL Total Bilirubin 0.4 0.1-1.0 MG/DL Aspartate Amino Transf (AST/SGOT) 18 5-34 U/L Alanine Aminotransferase (ALT/SGPT) 18 0-55 U/L Alkaline Phosphatase 88 40-136 U/L C-Reactive Protein High Sensitivity 6.83 H 0.00-0.50 MG/DL Total Protein 7.3 6.4-8.2 GM/DL Albumin 3.9 3.2-4.5 GM/DL Procalcitonin 0.08 <0.10 NG/ML Influenza Type A (RT-PCR) Not Detected Not Detecte Influenza Type B (RT-PCR) Not Detected Not Detecte SARS-CoV-2 RNA (RT-PCR) Detected H Not Detecte My Orders Orders - MATTHEW CONN MD Cbc With Automated Diff (05/22/21 09:19) Comprehensive Metabolic Panel (05/22/21 09:19) Blood Culture (05/22/21 09:19) Sputum Culture (05/22/21 09:19) Urinalysis (05/22/21 09:19) Urine Culture (05/22/21 09:19) Protime With Inr (05/22/21 09:19) Partial Thromboplastin Time (05/22/21 09:19) Chest 1 View, Ap/Pa Only (05/22/21 09:19) Ed Iv/Invasive Line Start (05/22/21 09:19) Vital Signs Adult Sepsis Patie Q15M (05/22/21 09:19) O2 (05/22/21 09:19) Remove Rings In Anticipation O (05/22/21 09:19) Lactic Acid Analyzer (05/22/21 09:19) Ns Iv 1000 Ml (Sodium Chloride 0.9%) (05/22/21 09:30) Fibrin Degradation Products (05/22/21 09:19) Procalcitonin (Pct) (05/22/21 09:19) Hs C Reactive Protein (05/22/21 09:19) Covid 19 Inhouse Test (05/22/21 09:19) Influenza A And B By Pcr (05/22/21 09:19) Ns Iv 1000 Ml (Sodium Chloride 0.9%) (05/22/21 09:20) Manual Differential (05/22/21 08:53) Dexamethasone Tablet (Decadron Tablet) (05/22/21 10:28) Vital Signs/I&O 05/22/21 08:52 Temp 36.7 Pulse 97 Resp 16 B/P (MAP) 146/84 (104) Pulse Ox 95 O2 Delivery Room Air Capillary Refill : Less Than 3 Seconds Blood Pressure Mean: 104 Progress Note : Progress Note Seen and evaluated. Sepsis protocol initiated as well as COVID-19 and influenza testing. Normal saline 1 L bolus ordered. Monitor patient. 1030: I did discuss the case with Dr. Aceves. He is positive for COVID-19 as well as his . While he is not currently hypoxic he is quite weak and and his age and stage as well as underlying debility, patient will not do well outpatient. Decadron [address] Aceves agrees that patient will require admission. Admitted, inpatient status under COVID-19 order set. She will call pulmonary consult. Family agrees with plan. Diagnostic Imaging Diagonstic Imaging: Xray Plain Films/CT/US/NM/MRI: chest Comments [facility], [place] NAME: MARTINE RAGSDALE [facility] REC#: [id number] PT STATUS: REG ER : 1940 PHYSICIAN: MATTHEW CONN MD ADMIT DATE: 05/22/21/ER Signed Date of Exam:05/22/21 CHEST 1 VIEW, AP/PA ONLY INDICATION: Dementia and exposure to COVID. Comparison made with prior examination of 04/04/2017. The heart size is stable. There has been previous median sternotomy and coronary bypass graft. No pleural effusion, pneumothorax or pneumonia. Mediastinum is unremarkable. IMPRESSION: No acute cardiopulmonary abnormality. Dictated by: Dictated on workstation # [id number] Dict: 05/22/21 1011 Trans: 05/22/21 1042 CVB [id number] Interpreted by: DOMINGUEZ GLASGOW MD Electronically signed by: DOMINGUEZ GLASGOW MD 05/22/21 1042 Departure Communication (Admissions) Time/Spoke to Admitting Phy: 10:30 Impression Primary Impression: COVID-19 virus infection Additional Impression: Weakness Disposition: ADMITTED INPATIENT Condition: Stable Admissions Decision to Admit Reason: Admit from ER (General) Decision to Admit/Date: May 22, 2021 Time/Decision to Admit Time: 10:35 Departure-Patient Inst. Referrals: SHEILA ACEVES MD (PCP/Family) Primary Care Physician MATTHEW CONN MD May 22, 2021 10:37
[2021-05-22] MEDS ORDERED: IPRATROPIUM INHALER (ATROVENT) 12.9 GM INH PRN ×2 (11:30→12:00)
[2021-05-22] MEDS ORDERED: ACETAMINOPHEN 325 MG TABLET PO PRN (11:30)
[2021-05-22] MEDS ORDERED: RT-ALBUTEROL INHALER HFA (VENTOLIN HFA) 18 GM IH PRN (11:30)
[2021-05-22] MEDS ORDERED: ENOXAPARIN 100 MG/1 ML (LOVENOX) SYR SC SCH (11:30)
[2021-05-22] MEDS ORDERED: guaiFENesin SYRUP 100 MG/5 ML 10 ML (ROBITUSSIN SF) PO PRN (11:30)
[2021-05-22] MEDS ORDERED: ONDANSETRON 4 MG/2 ML (SDV) Z0FRAN IVP PRN (11:30)
[2021-05-22 12:00] VITALS: BP 133/81
--- NOTE | 2021-05-22 12:19 | History & Physicial ---
History of Present Illness History of Present Illness Reason for visit/HPI PT IS AN 81 YO MALE WHO IS WELL KNOWN TO ME FROM CLINIC. PER REPORT, PT WAS EXPOSED TO HIS STEP-DTR WHO WAS COVID POSITIVE IN THE PAST 2 WEEKS. HE STARTED TO FEEL POORLY ON 05/15/2021 AND WAS FEELING INCREASINGLY WEAK AND LETHARGIC OVER THIS PAST WEEK. HE WAS NOT EATING WELL AND HIS SPOUSE WAS ALSO FEELING ILL. THEY CALLED MY OFFICE YESTERDAY TO 'GET SOMETHING CALLED OUT' - HOWEVER WE AD VISED THE PT AND HIS MULTIPLE TIMES THAT THEY NEEDED TO BE TESTED FOR COVID AND TREATED FOR COVID INSTEAD OF JUST "CALLING OUT" MEDICATIONS. THEY REFUSED TO GET TESTED SINCE VITO WAS "TOO WEAK" TO GET OUT OF THE HOUSE. WE THEN ADVISED THEM TO GO TO THE ER, BUT THEY WERE NOT WILLING TO GO YESTERDAY. HOWEVER AFTER FEELING SIGNIFICANTLY WORSE TODAY - THEY PRESENTED TO THE ER, FOUND TO BE COVID POSITIVE AND IN RESPIRATORY DISTRESS. Date of Admission May 22, 2021 at 10:44 Date Seen by a Provider: May 22, 2021 Time Seen by a Provider: 14:00 I consulted on this patient on 05/22/21 12:16 Attending Physician Sheila Aceves MD Admitting Physician Sheila Aceves MD Consult E- PULMONOLOGY CONSULT Allergies and Home Medications Allergies Coded Allergies: NKANo Known Allergies (Verified Allergy, Unknown, 01/03/06) Home Medications Amoxicillin/Potassium Clav 1 Each Tablet, 1 EA PO TID, (Reported) FILLED 05-20-2021 #21/7 DAY SUPPLY Last Action: Held Ascorbate Calcium 500 Mg Tablet, 500 MG PO DAILY, (Reported) Last Action: Held Aspirin 81 Mg Tablet.dr, 81 MG PO DAILY, (Reported) Last Action: Continued C,E,Zinc,Copper 24/Om3/Lut/Claus 1 Each Capsule, 1 EACH PO DAILY, (Reported) Last Action: Held Cholecalciferol (Vitamin D3) 50 Mcg Capsule, 1,000 MCG PO BID, (Reported) Last Action: Held Diltiazem HCl 240 Mg Cap.er.24h, 240 MG PO HS, (Reported) Last Action: Continued Donepezil HCl 10 Mg Tablet, 10 MG PO HS, (Reported) Last Action: Held Furosemide 20 Mg Tablet, 20 MG PO BID, (Reported) Last Action: Held Insulin Detemir 100 Unit/1 Ml Insuln.pen, 37 UNIT SQ HS, (Reported) Last Action: Converted Magnesium Oxide 500 Mg Tablet, 500 MG PO DAILY, (Reported) Last Action: Held Memantine HCl 10 Mg Tablet, 10 MG PO BID, (Reported) Last Action: Held Metformin HCl 500 Mg Tab.er.24h, 500 MG PO BID, (Reported) Last Action: Continued Tamsulosin HCl 0.4 Mg Cap, 0.4 MG PO DAILY, (Reported) Last Action: Continued Tolterodine Tartrate 2 Mg Tablet, 2 MG PO BID, (Reported) Last Action: Converted Tramadol HCl 50 Mg Tablet, 50 MG PO TID PRN for PAIN-MODERATE (5-7), (Reported) Last Action: Held Zinc 50 Mg Tablet, 50 MG PO DAILY, (Reported) Last Action: Held Patient Home Medication List Home Medication List Reviewed: Yes Past Zrqcncf-Iiqhzd-Biijue Hx Patient Social History Marrital Status: Living Status: LIVES AT HOME WITH SPOUSE ON THEIR FARM/[place] Employed/Student: retired ([employer]) Smoking Status: Former Smoker Former Smoker, Quit: May 30, 1986 2nd Hand Smoke Exposure: No Recent Hopitalizations: No Social History LIVES WITH SPOUSE ON THEIR [place]ARM/[address], SHE PROVIDES CARE FOR HIM Have you traveled recently?: No Alcohol Use?: No Pt feels they are or have been: No Immunizations Up To Date Tetanus Booster (TDap): More than 5yrs Date of Pneumonia Vaccine: Jul 15, 2015 Date of Influenza Vaccine: Aug 17, 2016 Seasonal Allergies Seasonal Allergies: No Surgeries Yes (CABG) Cardiac, CABG, Eye Surgery Respiratory No Cardiovascular Yes Atrial Fibrillation, Coronary Artery Disease, High Cholesterol, Hypertension, Peripheral Vascular Neurological Yes Dementia Reproductive System Hx Reproductive Disorders: No Sexually Transmitted Disease: No HIV/AIDS: No Genitourinary Yes Benign Prostatic Hyperpl, Prostate Problems Gastrointestinal No Musculoskeletal Yes (LUMBAR SPINAL STENOSIS. unable to ambulate without assistance) Chronic Back Pain Endocrine History of Endocrine Disorders: Yes Endocrine Disorders: Diabetes, Insulin dep HEENT HEENT Disorders: Cataract Hearing Impairment: Hard of Hearing, Hearing Aide Right, Hearing Aide Left Cancer Yes Skin, Melanoma Did You Recieve Any Treatments: Yes Type of Treatment: Chemotherapy, Surgical Intervention, Other Psychosocial History of Psychiatric Problem: No Integumentary History of Skin or Integumenta: Yes (skin cancer) Blood Transfusions History of Blood Disorders: No Adverse Reaction to a Blood Tr: No Reviewed Nursing Assessment Reviewed/Agree w Nursing PMH: Yes Family Medical History Significant Family History: Heart Disease, Cancer, Diabetes, Hypertension Family Hx: Diabetes mellitus 19 MOTHER G8 SISTER FH: bladder cancer G8 SISTER FH: lupus G8 SISTER Review of Systems Constitutional: No chills, No diaphoresis; dizziness, malaise, weakness EENTM: hearing loss; No hoarseness, No throat pain Respiratory: cough, dyspnea on exertion, short of breath Cardiovascular: No chest pain, No palpitations Gastrointestinal: No abdominal pain, No nausea, No vomiting Genitourinary: frequency, incontinence Musculoskeletal: muscle weakness ("NO LONGER WALKS" PER HIS 'S REPORT) Skin: no symptoms reported Psychiatric/Neurological: Weakness, Other (DEMENTIA) All Other Systems Reviewed Negative Unless Noted: Yes Physical Exam Vital Signs Vital Signs - First Documented 05/22/21 05/22/21 05/22/21 08:52 12:00 12:57 Temp 36.7 Pulse 97 Resp 16 B/P (MAP) 146/84 (104) Pulse Ox 95 O2 Delivery Room Air O2 Flow Rate 2.00 FiO2 28 Capillary Refill : Less Than 3 Seconds Height, Weight, BMI Height: 6'0" Weight: 212lbs. 0.0oz. 96.973473vp; 23.00 BMI Method:Stated General Appearance: WD/WN, Chronically ill, Mild Distress Eyes: Bilateral Eye Normal Inspection, Bilateral Eye PERRL, Bilateral Eye EOMI HEENT: PERRL/EOMI, Pharynx Normal Neck: Full Range of Motion, Non Tender, Supple Respiratory: Chest Non Tender, Crackles (BASES BILATERALLY), Decreased Breath Sounds Cardiovascular: Regular Rate, Rhythm, Normal Peripheral Pulses Gastrointestinal: Normal Bowel Sounds, No Organomegaly, No Pulsatile Mass, Non Tender, Soft Rectal: Deferred Back: Other (KYPHOSIS) Extremity: Normal Capillary Refill, Non Tender, No Calf Tenderness, No Pedal Edema Neurologic/Psychiatric: Alert, Disoriented (ORIENTED TO PERSON, NOT PLACE OR TIME), Other (FLAT AFFECT) Skin: Normal Color, Warm/Dry Lymphatic: No Adenopathy Assessment/Plan Assessment and Plan COVID-19 PNEUMONIA WEAKNESS DEHYDRATION DIABETES MELLITUS CHRONIC URGE INCONTINENCE DEMENTIA HYPERTENSION ATRIAL FIBRILLATION HYPERLIPIDEMIA CORONARY ARTERY DISEASE COVID-19 PNEUMONIA - PT IS NOT YET IN THE WINDOW OF CRITERIA FOR TREATMENT OF COVID WITH REMDESIVIR, IF HE STARTS TO REQUIRE OXYGEN WE WILL THEN START HIM ON THE PROTOCOL. WEAKNESS - - WILL REQUIRE THERAPY DEHYDRATION - ON IV FLUIDS - MONITOR LABS DIABETES MELLITUS - RESUME METFORMIN CHECK FSBS AC/HS CHRONIC URGE INCONTINENCE WITH BPH - - RESTART FLOMAX, AND ANTICHOLINERGIC DEMENTIA - HOLD HOME MEDS FOR NOW HYPERTENSION - RESUME CALCIUM CHANNEL YOSVANY - MONITOR PRESSURES ATRIAL FIBRILLATION - RATE CONTROLLED - RESUME CURRENT TREATMENT - PT NOT ON ANTICOAGULATION DUE TO RISK OF BLEEDING WITH FALLS, AND GI BLEEDING CORONARY ARTERY DISEASE - SUPPORTIVE CARE, MEDICAL MANAGEMENT DVT PROPHYLAXIS WITH LOVENOX AND SCD'S GI PROPHYLAXIS WITH PPI Admission Diagnosis COVID-19 PNEUMONIA WEAKNESS DEHYDRATION DIABETES MELLITUS CHRONIC URGE INCONTINENCE DEMENTIA HYPERTENSION ATRIAL FIBRILLATION HYPERLIPIDEMIA CORONARY ARTERY DISEASE Admission Status: Inpatient Order (span 2 midnights) Reason for Inpatient Admission: INPT ADMISSION FOR COVID 19 WILL REQUIRE AT LEAST 3-5 MIDNIGHTS FOR TREATMENT, MONITORING AND STABILIZATION PRIOR TO DISCHARGE. SHEILA ACEVES MD May 22, 2021 12:19
[2021-05-22] MEDS ORDERED: AZITHROMYCIN 250 MG TAB (ZITHROMAX) PO ONE (12:30)
--- NOTE | 2021-05-22 12:42 | Pulmonary Consultation ---
History of Present Illness History of Present Illness Date Seen by Provider: May 22, 2021 Time Seen by Provider: 12:28 Date of Admission 05-22-21 Reason for Visit: covid pneumonia History of Present Illness Is an 81-year-old male with a history of coronary artery disease status post bypass surgery, atrial fibrillation hypertension, hyperlipidemia and peripheral vascular disease presented to the emergency room with a complaint that he has not feeling well for the last 1 week associated with the malaise and some chills. Apparently his stepdaughter and son-in-law was tested positive for Covid. Today in the emergency room he is also positive for Covid as well as his and his is also hypoxic and admitted to the hospital. If pulmonary consultation is requested to assist in the management of this patient. Is also found to have a leukocytosis. However his chest x-ray showed no acute cardiopulmonary abnormalities but his room air oxygen saturation is normal at 95%. I have made a video visit and discussed with the patient who is agreed for video visit and also discussed with the RN. Earlier I have discussed with the attending physician. He denies any chest pain wheezing abdominal pain or diarrhea. No skin rash or leg edema present. Is resting comfortably on room air. However in view of his underlying multiple medical problems as well as advanced age he is being admitted for close observation and stabilization. Allergies and Home Medications Allergies Coded Allergies: RENZOANo Known Allergies (Verified Allergy, Unknown, 01/03/06) Home Medications Albuterol Sulfate 2.5 Mg/3 Ml Vial.neb, 2.5 MG IH RTQ4HR PRN for SOA Prescribed by: SHEILA TIAN on 04/08/1757 Apixaban 5 Mg Tablet, 5 MG PO BID, (Reported) Aspirin 81 Mg Tabec, 81 MG PO DAILY, (Reported) Azithromycin 250 Mg Tablet, 250 MG PO DAILY Prescribed by: SHEILA TIAN on 04/08/1757 Cholecalciferol (Vitamin D3) 1,000 Unit Capsule, 1,000 UNIT PO DAILY, (Reported) Cholecalciferol (Vitamin D3) 1,000 Unit Capsule, 2,000 UNIT PO HS, (Reported) TAKES 2 (1000 UNIT) CAPSULES Cyanocobalamin 1,000 Mcg/Ml Inj, 1,000 MCG IJ MONTHLY, (Reported) Diltiazem HCl 240 Mg Cap.er.24h, 240 MG PO HS, (Reported) Donepezil HCl 10 Mg Tablet, 10 MG PO HS, (Reported) Ferrous Sulfate 325 Mg Tablet, 325 MG PO DAILY, (Reported) Gabapentin 300 Mg Capsule, 300 MG PO HS, (Reported) Insulin Detemir 100 Unit/1 Ml Insuln.pen, 30 UNIT SQ HS, (Reported) Lactobacillus Acidophilus 1 Each Tablet, 1 EACH PO BID Prescribed by: SHEILA TIAN on 04/08/17 0913 Magnesium Oxide 500 Mg Tablet, 500 MG PO DAILY, (Reported) Memantine HCl 10 Mg Tablet, 10 MG PO BID, (Reported) Metformin HCl 500 Mg Tab.er.24h, 500 MG PO BID, (Reported) Multivitamin 1 Each Tablet, 1 TAB PO DAILY, (Reported) Mv-Mn/FA/Vit K/Lycop/Lut/Zeaxa 1 Each Tablet, 1 TAB PO DAILY, (Reported) Pentoxifylline 400 Mg Tablet.er, 400 MG PO BID, (Reported) Potassium 99 Mg Tablet, 99 MG PO DAILY, (Reported) Tamsulosin HCl 0.4 Mg Cap.er.24h, 0.4 MG PO DAILY@1800, (Reported) Tramadol HCl 50 Mg Tablet, 50 MG PO Q8H PRN for PAIN, (Reported) Past Medical/Social/Family Hx Patient Social History Marrital Status: Tobacco Use?: No Substance use?: No Pt stated abuse/neglect: No Immunizations Up To Date Second COVID19 Vaccination Leoncio: STATES HAS BOTH VACCINES Tetanus Booster (TDap): More Than 5 Years Date of Pneumonia Vaccine: Jul 15, 2015 Current Status Advance Directives: Yes Advance Directive Location: STATES PT DNR Primary Language: Tongan Preferred Spoken Language: Tongan Past Medical History HTN, HLD, CABG, PVD Review of Systems Constitutional: see HPI Sepsis Event Evaluation Height, Weight, BMI Height: 6'0" Weight: 212lbs. 0.0oz. 96.480280um; 23.00 BMI Method:Stated Exam Exam Patient acknowledged, consented, and participated in this virtual visit which was conducted using real time audio/video Vital Signs Date Time Temp Pulse Resp B/P (MAP) Pulse Ox O2 Delivery O2 Flow Rate FiO2 05/22/21 11:00 90 16 168/84 95 Room Air 05/22/21 08:52 36.7 97 16 146/84 (104) 95 Room Air Height & Weight Height: 6'0" Weight: 212lbs. 0.0oz. 96.321820ze; 23.00 BMI Method:Stated General Appearance: No Apparent Distress, WD/WN HEENT: PERRL/EOMI, Pharyngeal Erythema Neck: Non Tender, Supple Respiratory: Lungs Clear, No Accessory Muscle Use Cardiovascular: No Murmur, Tachycardia Capillary Refill: Less Than 3 Seconds Extremity: Normal Range of Motion, Non Tender Neurologic/Psychiatric: Alert, Other (Has some baseline confusion but answers questions appropriately and follows commands. Does have history of dementia) Results Lab Laboratory Tests 05/22/21 08:53 Meds REVIEWED Radiology CXR REVIEWED BY ME VIA PACS Assessment/Plan Assessment/Plan 1. Acute Covid viral infection 2. History of hypertension 3. History of coronary artery disease status post bypass surgery 4. Peripheral arterial disease 5. Spinal stenosis with the difficulty in ambulation. 6. Leukocytosis rule out underlying bacterial infection. 7. High risk for DVT. Recommendations 1. We will give him dexamethasone 2. Acetaminophen as needed for pain 3. DVT prophylaxis 4. Hydrate patient cautiously 5. We will start on azithromycin for possible bacterial infection 6. We will continue to monitor his electrolytes and D-dimer. I have reviewed with the patient and bedside RN. Thank you for this consultation. Time spent with patient (mins): 50 Diagnosis/Problems Problems/Diagonsis (1) COVID-19 virus infection Status: Acute (2) Weakness Status: Acute (3) Spinal stenosis Status: Acute MARTINE MERCADO MD May 22, 2021 12:42
[2021-05-22 12:57] VITALS: BP 133/81
[2021-05-22] MEDS: ALBUTEROL/IPRATROP (COMBIVENT RESPIMAT) 4 GM INHALER IH SCH ×2 (13:39→18:52)
[2021-05-22] MEDS: ENOXAPARIN 40 MG/0.4 ML (LOVENOX) SYR SC SCH (14:08)
[2021-05-22] MEDS: LACTATED RINGERS 1,000 ML IV SCH (14:08)
[2021-05-22] MEDS ORDERED: ASPI-1238 PO (15:13)
[2021-05-22] MEDS ORDERED: ASCO-262 PO (15:14)
[2021-05-22] MEDS ORDERED: ZINC50TA58 PO (15:14)
[2021-05-22] MEDS ORDERED: TRAM50TA3 PO (15:14)
[2021-05-22] MEDS ORDERED: FURO20TA4 PO (15:14)
[2021-05-22] MEDS ORDERED: AMOX1TAB11 PO (15:14)
[2021-05-22] MEDS ORDERED: TOLT2TAB5 PO (15:14)
[2021-05-22] MEDS ORDERED: C,E,1CAP2 PO (15:14)
[2021-05-22] MEDS ORDERED: CHOL20002 PO (15:14)
[2021-05-22] MEDS ORDERED: TMSL.4C PO (15:14)
[2021-05-22 15:51] VITALS: BP 129/80
[2021-05-22] MEDS: metFORMIN XR 500 MG (GLUCOPHAGE XR) TAB PO SCH (17:52)
[2021-05-22] MEDS: LACTOBACILLUS ACIDOPHILUS (PROBIOTIC) CAPSULE PO SCH (17:52)
[2021-05-22 19:31] VITALS: BP 163/83
[2021-05-22] MEDS ORDERED: NON-FORMULARY MEDICATION 1 EA EA (Tolterodine Tartrate 2 MG) PO SCH (21:00)
[2021-05-22] MEDS ORDERED: INSULIN DETEMIR 37 UNIT SQ SCH (21:00)
[2021-05-23] VITALS: BP 158/70
[2021-05-23 04:00] VITALS: BP 144/68
[2021-05-23] MEDS: dexAMETHasone 6 MG TAB (DECADRON) PO SCH (06:00)
[2021-05-23 06:15] LABS: BASOPHILS % (AUTO) 0 % (0-10); EOSINOPHILS % (AUTO) 0 % (0-10); HEMATOCRIT 40 % (40-54); HEMOGLOBIN 12.7 g/dL (13.3-17.7); LYMPHOCYTES # (AUTO) 1.6 10^3/uL (1.0-4.0); LYMPHOCYTES % (AUTO) 14 % (12-44); MEAN CORPUSCULAR HEMOGLOBIN 27 pg (25-34); MEAN CORPUSCULAR HGB CONC 32 g/dL (32-36); MEAN CORPUSCULAR VOLUME 85 fL (80-99); MEAN PLATELET VOLUME 9.7 fL (9.0-12.2); MONOCYTES # (AUTO) 1.1 10^3/uL (0.0-1.0); MONOCYTES % (AUTO) 10 % (0-12); NEUTROPHILS # (AUTO) 8.5 10^3/uL (1.8-7.8); NEUTROPHILS % (AUTO) 76 % (42-75); PLATELET COUNT 335 10^3/uL (130-400); WHITE BLOOD COUNT 11.3 10^3/uL (4.3-11.0)
[2021-05-23 06:27] LABS: CHLORIDE 108 MMOL/L (98-107); POTASSIUM 3.8 MMOL/L (3.6-5.0); SODIUM 142 MMOL/L (135-145)
[2021-05-23 06:28] LABS: CALCIUM 8.8 MG/DL (8.5-10.1)
[2021-05-23 06:29] LABS: GLUCOSE 182 MG/DL (70-105)
[2021-05-23 06:30] LABS: CARBON DIOXIDE 23 MMOL/L (21-32)
[2021-05-23 06:33] LABS: CREATININE SERUM 0.94 MG/DL (0.60-1.30); GFR ESTIMATED > 60
[2021-05-23 06:34] LABS: BUN/CREATININE RATIO 15
[2021-05-23] MEDS: ALBUTEROL/IPRATROP (COMBIVENT RESPIMAT) 4 GM INHALER IH SCH ×4 (06:41→18:30)
[2021-05-23] MEDS: LACTATED RINGERS 1,000 ML IV SCH ×2 (07:11→13:23)
[2021-05-23 08:00] VITALS: BP 182/69
--- NOTE | 2021-05-23 08:27 | Diagnostic Imaging Report ---
INDICATION: COVID positive Portable chest 4:08 AM There is a loop recorder projecting over the left lower chest. There are postoperative changes from CABG surgery. Heart size and pulmonary vascularity are normal. Lungs are clear. There are no effusions or pneumothoraces. IMPRESSION: Postsurgical changes in the chest. No acute abnormality seen. Dictated by: Dictated on workstation # [id number]
[2021-05-23] MEDS: ASPIRIN E.C. 81 MG (ECOTRIN) TAB PO SCH (08:31)
[2021-05-23] MEDS: metFORMIN XR 500 MG (GLUCOPHAGE XR) TAB PO SCH ×2 (08:31→17:04)
[2021-05-23] MEDS: PANTOPRAZOLE 40 MG (PROTONIX) TAB PO SCH (08:31)
[2021-05-23] MEDS: LACTOBACILLUS ACIDOPHILUS (PROBIOTIC) CAPSULE PO SCH ×3 (08:31→17:04)
[2021-05-23] MEDS: AZITHROMYCIN 250 MG TAB (ZITHROMAX) PO SCH (08:32)
[2021-05-23] MEDS: TOLTERODINE LA 2 MG (DETROL LA) CAP PO SCH (08:32)
--- NOTE | 2021-05-23 08:47 | Progress Note ---
Subjective Subjective Date Seen by Provider: May 23, 2021 Time Seen by Provider: 10:00 PT IS AN 81 Y/O MALE WHO HAS COVID-19 TODAY HE STATES THAT HE IS FEELING BETTER HE DENIES CHEST PAIN, DOES HAVE SOME SHORTNESS OF BREATH. HE DENIES ABDOMINAL PAIN, NAUSEA, DIZZINESS. Review of Systems General: No Chills; Fatigue, Malaise HEENT: No Dysphasia Pulmonary: Dyspnea, Cough Cardiovascular: No: Chest Pain, Palpitations Gastrointestinal: No: Nausea, Abdominal Pain Genitourinary: No Dysuria Neurological: Weakness All Other Systems Reviewed All Other Systems Reviewed: Yes Objective Exam Vital Signs Vital Signs - First Documented 05/22/21 05/22/21 05/22/21 08:52 12:00 12:57 Temp 36.7 Pulse 97 Resp 16 B/P (MAP) 146/84 (104) Pulse Ox 95 O2 Delivery Room Air O2 Flow Rate 2.00 FiO2 28 Capillary Refill : Less Than 3 Seconds General Appearance: No Apparent Distress, WD/WN, Chronically ill Eyes: Bilateral Eye Normal Inspection, Bilateral Eye PERRL, Bilateral Eye EOMI HEENT: PERRL/EOMI, Pharynx Normal Neck: Full Range of Motion, Non Tender, Supple Respiratory: Chest Non Tender, Crackles (BASES BILATERALLY), Decreased Breath Sounds Cardiovascular: Regular Rate, Rhythm, Normal Peripheral Pulses Gastrointestinal: Normal Bowel Sounds, No Organomegaly, No Pulsatile Mass, Non Tender, Soft Rectal: Deferred Back: Other (KYPHOSIS) Extremity: Normal Capillary Refill, Non Tender, No Calf Tenderness, No Pedal Edema Neurologic/Psychiatric: Alert, Disoriented (ORIENTED TO PERSON, NOT PLACE OR TIME), Other (FLAT AFFECT) Skin: Normal Color, Warm/Dry Lymphatic: No Adenopathy Results Lab Laboratory Tests 05/22/21 08:53: White Blood Count 14.9H, Red Blood Count 5.04, Hemoglobin 14.2, Hematocrit 43, Mean Corpuscular Volume 86, Mean Corpuscular Hemoglobin 28, Mean Corpuscular Hemoglobin Concent 33, Red Cell Distribution Width 15.4H, Platelet Count 359, Mean Platelet Volume 9.6, Immature Granulocyte % (Auto) 1, Neutrophils (%) (Auto) 76H, Lymphocytes (%) (Auto) 12, Monocytes (%) (Auto) 11, Eosinophils (%) (Auto) 0, Basophils (%) (Auto) 1, Neutrophils # (Auto) 11.3H, Lymphocytes # (Auto) 1.8, Monocytes # (Auto) 1.6H, Eosinophils # (Auto) 0.0, Basophils # (Auto) 0.1, Immature Granulocyte # (Auto) 0.1, Neutrophils % (Manual) 77, Lymphocytes % (Manual) 8, Monocytes % (Manual) 9, Eosinophils % (Manual) 0, Basophils % (Manual) 0, Band Neutrophils 6, Anisocytosis SLIGHT, Prothrombin Time 13.2, INR Comment 1.0, Activated Partial Thromboplast Time 35, D-Dimer 1.38H, Urine Color YELLOW, Urine Clarity CLEAR, Urine pH 6.0, Urine Specific [place] 1.025H, Urine Protein 1+H, Urine Glucose (UA) NEGATIVE, Urine Ketones TRACEH, Urine Nitrite NEGATIVE, Urine Bilirubin NEGATIVE, Urine Urobilinogen 0.2, Urine Leukocyte Esterase NEGATIVE, Urine RBC (Auto) TRACE-I, Urine RBC 0-2, Urine WBC RARE, Urine Squamous Epithelial Cells RARE, Urine Crystals NONE, Urine Bacteria NEGATIVE, Urine Casts NONE, Urine Mucus NEGATIVE, Urine Culture Indicated NO, Sodium Level 140, Potassium Level 3.9, Chloride Level 101, Carbon Dioxide Level 27, Anion Gap 12, Blood Urea Nitrogen 11, Creatinine 1.04, Estimat Glomerular Filtration Rate > 60, BUN/Creatinine Ratio 11, Glucose Level 193H, Lactic Acid Level 1.50, Calcium Level 8.8, Corrected Calcium 8.9, Total Bilirubin 0.4, Aspartate Amino Transf (AST/SGOT) 18, Alanine Aminotransferase (ALT/SGPT) 18, Alkaline Phosphatase 88, C-Reactive Protein High Sensitivity 6.83H, Total Protein 7.3, Albumin 3.9, Procalcitonin 0.08, Influenza Type A (RT- PCR) Not Detected, Influenza Type B (RT-PCR) Not Detected, SARS-CoV-2 RNA (RT- PCR) DetectedH 05/22/21 21:59: Glucometer 209H 05/23/21 05:38: White Blood Count 11.3H, Red Blood Count 4.67, Hemoglobin 12.7L, Hematocrit 40, Mean Corpuscular Volume 85, Mean Corpuscular Hemoglobin 27, Mean Corpuscular Hemoglobin Concent 32, Red Cell Distribution Width 15.2H, Platelet Count 335, Mean Platelet Volume 9.7, Immature Granulocyte % (Auto) 1, Neutrophils (%) (Auto) 76H, Lymphocytes (%) (Auto) 14, Monocytes (%) (Auto) 10, Eosinophils (%) (Auto) 0, Basophils (%) (Auto) 0, Neutrophils # (Auto) 8.5H, Lymphocytes # (Auto) 1.6, Monocytes # (Auto) 1.1H, Eosinophils # (Auto) 0.0, Basophils # (Auto) 0.0, Immature Granulocyte # (Auto) 0.1, Sodium Level 142, Potassium Level 3.8, Chloride Level 108H, Carbon Dioxide Level 23, Anion Gap 11, Blood Urea Nitrogen 14, Creatinine 0.94, Estimat Glomerular Filtration Rate > 60, BUN/Creatinine Ratio 15, Glucose Level 182H, Calcium Level 8.8 Assessment/Plan Assessment/Plan Admission Dx COVID-19 PNEUMONIA WEAKNESS DEHYDRATION DIABETES MELLITUS CHRONIC URGE INCONTINENCE DEMENTIA HYPERTENSION ATRIAL FIBRILLATION HYPERLIPIDEMIA CORONARY ARTERY DISEASE Assessment and Plan COVID-19 PNEUMONIA WEAKNESS DEHYDRATION DIABETES MELLITUS CHRONIC URGE INCONTINENCE DEMENTIA HYPERTENSION ATRIAL FIBRILLATION HYPERLIPIDEMIA CORONARY ARTERY DISEASE ANEMIA COVID-19 PNEUMONIA - PT IS NOT YET IN THE WINDOW OF CRITERIA FOR TREATMENT OF COVID WITH REMDESIVIR, IF HE STARTS TO REQUIRE OXYGEN WE WILL THEN START HIM ON THE PROTOCOL. - WHITE COUNT IMPROVED FROM 14.9 DOWN TO 11.3 ON 05/23/21 WEAKNESS - - WILL REQUIRE THERAPY DEHYDRATION - ON IV FLUIDS - MONITOR LABS ANEMIA - HGB DOWN FROM 14.2 TO 12.7 ON 05/23/21, CONTINUE TO MONITOR LABS DIABETES MELLITUS - RESUME METFORMIN CHECK FSBS AC/HS CHRONIC URGE INCONTINENCE WITH BPH - - RESTART FLOMAX, AND ANTICHOLINERGIC DEMENTIA - HOLD HOME MEDS FOR NOW HYPERTENSION - RESUME CALCIUM CHANNEL YOSVANY - MONITOR PRESSURES ATRIAL FIBRILLATION - RATE CONTROLLED - RESUME CURRENT TREATMENT - PT NOT ON ANTICOAGULATION DUE TO RISK OF BLEEDING WITH FALLS, AND GI BLEEDING CORONARY ARTERY DISEASE - SUPPORTIVE CARE, MEDICAL MANAGEMENT DVT PROPHYLAXIS WITH LOVENOX AND SCD'S GI PROPHYLAXIS WITH PPI Problems: (1) COVID-19 virus infection (2) Weakness (3) Spinal stenosis Admission Dx COVID-19 PNEUMONIA WEAKNESS DEHYDRATION DIABETES MELLITUS CHRONIC URGE INCONTINENCE DEMENTIA HYPERTENSION ATRIAL FIBRILLATION HYPERLIPIDEMIA CORONARY ARTERY DISEASE Clinical Quality Measures Admission Status Admission Dx COVID-19 PNEUMONIA WEAKNESS DEHYDRATION DIABETES MELLITUS CHRONIC URGE INCONTINENCE DEMENTIA HYPERTENSION ATRIAL FIBRILLATION HYPERLIPIDEMIA CORONARY ARTERY DISEASE SHEILA TIAN MD May 23, 2021 08:47
[2021-05-23] MEDS ORDERED: TAMSULOSIN 0.4 MG (FLOMAX) CAP PO SCH (09:00)
[2021-05-23 12:00] VITALS: BP 128/68
[2021-05-23] MEDS: ENOXAPARIN 40 MG/0.4 ML (LOVENOX) SYR SC SCH (13:23)
[2021-05-23] MEDS: inSUlin ASPART (NovoLOG) 1 UNIT/0.01 ML (CHARGE PER UNIT) SC SCH ×3 (13:24→20:13)
[2021-05-23 15:18] VITALS: BP 152/70
[2021-05-23] MEDS: TAMSULOSIN 0.4 MG (FLOMAX) CAP PO SCH (17:05)
[2021-05-23 19:21] VITALS: BP 158/68
[2021-05-24 00:59] VITALS: BP 159/71
[2021-05-24 04:59] VITALS: BP 162/75
[2021-05-24] MEDS: dexAMETHasone 6 MG TAB (DECADRON) PO SCH (06:00)
[2021-05-24] MEDS: inSUlin ASPART (NovoLOG) 1 UNIT/0.01 ML (CHARGE PER UNIT) SC SCH ×4 (06:14→20:06)
[2021-05-24] MEDS: ALBUTEROL/IPRATROP (COMBIVENT RESPIMAT) 4 GM INHALER IH SCH ×4 (07:12→19:58)
[2021-05-24 08:00] VITALS: BP 155/70
[2021-05-24] MEDS: LACTOBACILLUS ACIDOPHILUS (PROBIOTIC) CAPSULE PO SCH ×3 (08:42→16:40)
[2021-05-24] MEDS: TOLTERODINE LA 2 MG (DETROL LA) CAP PO SCH (08:42)
[2021-05-24] MEDS: PANTOPRAZOLE 40 MG (PROTONIX) TAB PO SCH (08:42)
[2021-05-24] MEDS: metFORMIN XR 500 MG (GLUCOPHAGE XR) TAB PO SCH ×2 (08:42→16:41)
[2021-05-24] MEDS: ASPIRIN E.C. 81 MG (ECOTRIN) TAB PO SCH (08:42)
[2021-05-24] MEDS: AZITHROMYCIN 250 MG TAB (ZITHROMAX) PO SCH (08:42)
--- NOTE | 2021-05-24 09:17 | Progress Note ---
Subjective Subjective Date Seen by Provider: May 24, 2021 Time Seen by Provider: 10:45 PT IS AN 81 Y/O MALE WHO HAS COVID-19. VITO REPORTS THAT HE IS FEELING BETTER, HE DENIES CHEST PAIN, ABDOMINAL PAIN, NAUSEA, CONSTIPATION, HAS CHRONIC INCONTINENCE. Review of Systems General: No Chills; Fatigue, Malaise HEENT: No Dysphasia Pulmonary: Dyspnea, Cough Cardiovascular: No: Chest Pain, Palpitations Gastrointestinal: No: Nausea, Abdominal Pain Genitourinary: No Dysuria Neurological: Weakness All Other Systems Reviewed All Other Systems Reviewed: Yes Objective Exam Vital Signs Vital Signs - First Documented 05/22/21 05/22/21 05/22/21 08:52 12:00 12:57 Temp 36.7 Pulse 97 Resp 16 B/P (MAP) 146/84 (104) Pulse Ox 95 O2 Delivery Room Air O2 Flow Rate 2.00 FiO2 28 Capillary Refill : Less Than 3 Seconds General Appearance: No Apparent Distress, WD/WN, Chronically ill Eyes: Bilateral Eye Normal Inspection, Bilateral Eye PERRL, Bilateral Eye EOMI HEENT: PERRL/EOMI, Pharynx Normal Neck: Full Range of Motion, Non Tender, Supple Respiratory: Chest Non Tender, Normal Breath Sounds Cardiovascular: Regular Rate, Rhythm, Normal Peripheral Pulses Gastrointestinal: Normal Bowel Sounds, No Organomegaly, No Pulsatile Mass, Non Tender, Soft Rectal: Deferred Back: Other (KYPHOSIS) Extremity: Normal Capillary Refill, Non Tender, No Calf Tenderness, No Pedal Edema Neurologic/Psychiatric: Alert, Disoriented (ORIENTED TO PERSON, NOT PLACE OR TIME), Other (FLAT AFFECT) Skin: Normal Color, Warm/Dry Lymphatic: No Adenopathy Results Lab Laboratory Tests 05/23/21 11:12: Glucometer 268H 05/23/21 15:26: Glucometer 241H 05/23/21 19:27: Glucometer 236H 05/24/21 06:13: Glucometer 139H Microbiology 05/22/21 Blood Culture - Preliminary, Resulted No growth 05/22/21 Urine Culture - Final, Complete NO GROWTH Assessment/Plan Assessment/Plan Admission Dx COVID-19 PNEUMONIA WEAKNESS DEHYDRATION DIABETES MELLITUS CHRONIC URGE INCONTINENCE DEMENTIA HYPERTENSION ATRIAL FIBRILLATION HYPERLIPIDEMIA CORONARY ARTERY DISEASE Assessment and Plan COVID-19 PNEUMONIA WEAKNESS DEHYDRATION DIABETES MELLITUS CHRONIC URGE INCONTINENCE DEMENTIA HYPERTENSION ATRIAL FIBRILLATION HYPERLIPIDEMIA CORONARY ARTERY DISEASE ANEMIA COVID-19 PNEUMONIA - PT IS NOT IN THE WINDOW OF CRITERIA FOR TREATMENT OF COVID WITH REMDESIVIR - WHITE COUNT IMPROVED FROM 14.9 DOWN TO 11.3 ON 05/23/21 WEAKNESS - - WILL REQUIRE THERAPY ON DISCHARGE DEHYDRATION - ON IV FLUIDS - MONITOR LABS ANEMIA - HGB DOWN FROM 14.2 TO 12.7 ON 05/23/21, CONTINUE TO MONITOR LABS DIABETES MELLITUS - RESUMED METFORMIN CHECK FSBS AC/HS CHRONIC URGE INCONTINENCE WITH BPH - - RESTART FLOMAX, AND ANTICHOLINERGIC DEMENTIA - HOLD HOME MEDS FOR NOW HYPERTENSION - RESUME CALCIUM CHANNEL YOSVANY - MONITOR PRESSURES ATRIAL FIBRILLATION - RATE CONTROLLED - RESUME CURRENT TREATMENT - PT NOT ON ANTICOAGULATION DUE TO RISK OF BLEEDING WITH FALLS, AND GI BL EEDING CORONARY ARTERY DISEASE - SUPPORTIVE CARE, MEDICAL MANAGEMENT DVT PROPHYLAXIS WITH LOVENOX AND SCD'S GI PROPHYLAXIS WITH PPI Problems: (1) COVID-19 virus infection (2) Weakness (3) Spinal stenosis Admission Dx COVID-19 PNEUMONIA WEAKNESS DEHYDRATION DIABETES MELLITUS CHRONIC URGE INCONTINENCE DEMENTIA HYPERTENSION ATRIAL FIBRILLATION HYPERLIPIDEMIA CORONARY ARTERY DISEASE Clinical Quality Measures Admission Status Admission Dx COVID-19 PNEUMONIA WEAKNESS DEHYDRATION DIABETES MELLITUS CHRONIC URGE INCONTINENCE DEMENTIA HYPERTENSION ATRIAL FIBRILLATION HYPERLIPIDEMIA CORONARY ARTERY DISEASE SHEILA TIAN MD May 24, 2021 09:17
[2021-05-24 12:00] VITALS: BP 151/66
[2021-05-24] MEDS: ENOXAPARIN 40 MG/0.4 ML (LOVENOX) SYR SC SCH (12:22)
[2021-05-24 15:26] VITALS: BP 148/67
[2021-05-24] MEDS: TAMSULOSIN 0.4 MG (FLOMAX) CAP PO SCH (16:41)
[2021-05-24 19:25] VITALS: BP 160/67
[2021-05-25] VITALS (8 sets, daily range): BP systolic 138–167; BP diastolic 65–85
[2021-05-25] MEDS: dexAMETHasone 6 MG TAB (DECADRON) PO SCH (05:52)
[2021-05-25] MEDS: LACTATED RINGERS 1,000 ML IV SCH ×3 (05:52→21:41)
[2021-05-25] MEDS: inSUlin ASPART (NovoLOG) 1 UNIT/0.01 ML (CHARGE PER UNIT) SC SCH ×4 (06:19→21:37)
[2021-05-25] MEDS: ALBUTEROL/IPRATROP (COMBIVENT RESPIMAT) 4 GM INHALER IH SCH ×4 (07:11→18:24)
--- NOTE | 2021-05-25 08:47 | Progress Note ---
Subjective Subjective Date Seen by Provider: May 25, 2021 Time Seen by Provider: 08:47 PT IS AN 81 Y/O MALE WHO HAS COVID-19. VITO REPORTS THAT HE IS FEELING BETTER, HE DENIES CHEST PAIN, ABDOMINAL PAIN, NAUSEA, CONSTIPATION, HAS CHRONIC INCONTINENCE. VITO REPORTS THAT HE IS "GOOD" AND HE ONLY HAS AN INTERMITTENT COUGH. HE IS NOT HAPPY ABOUT GOING TO A LONGTERM, WANTS GREGORIO TO "CARE FOR ME LIKE SHE USUALLY DOES" Review of Systems General: No Chills; Fatigue, Malaise HEENT: No Dysphasia Pulmonary: No Dyspnea; Cough (INTERMITTENT) Cardiovascular: No: Chest Pain, Palpitations Gastrointestinal: No: Nausea, Abdominal Pain Genitourinary: No Dysuria Neurological: Weakness All Other Systems Reviewed All Other Systems Reviewed: Yes Objective Exam Vital Signs Vital Signs - First Documented 05/22/21 05/22/21 05/22/21 08:52 12:00 12:57 Temp 36.7 Pulse 97 Resp 16 B/P (MAP) 146/84 (104) Pulse Ox 95 O2 Delivery Room Air O2 Flow Rate 2.00 FiO2 28 Capillary Refill : Less Than 3 Seconds General Appearance: No Apparent Distress, WD/WN, Chronically ill Eyes: Bilateral Eye Normal Inspection, Bilateral Eye PERRL, Bilateral Eye EOMI HEENT: PERRL/EOMI, Pharynx Normal Neck: Full Range of Motion, Non Tender, Supple Respiratory: Chest Non Tender, Lungs Clear, Normal Breath Sounds, No Accessory Muscle Use, No Respiratory Distress Cardiovascular: Regular Rate, Rhythm, Normal Peripheral Pulses Gastrointestinal: Normal Bowel Sounds, No Organomegaly, No Pulsatile Mass, Non Tender, Soft Rectal: Deferred Back: Other (KYPHOSIS) Extremity: Normal Capillary Refill, Non Tender, No Calf Tenderness, No Pedal Edema Neurologic/Psychiatric: Alert, Disoriented (ORIENTED TO PERSON, NOT PLACE OR TIME), Other (FLAT AFFECT) Skin: Normal Color, Warm/Dry Lymphatic: No Adenopathy Results Lab Laboratory Tests 05/24/21 11:29: Glucometer 224H 05/24/21 15:53: Glucometer 282H 05/24/21 19:23: Glucometer 280H 05/25/21 05:47: Glucometer 214H Microbiology 05/22/21 Blood Culture - Preliminary, Resulted No growth 05/22/21 Urine Culture - Final, Complete NO GROWTH Assessment/Plan Assessment/Plan Admission Dx COVID-19 PNEUMONIA WEAKNESS DEHYDRATION DIABETES MELLITUS CHRONIC URGE INCONTINENCE DEMENTIA HYPERTENSION ATRIAL FIBRILLATION HYPERLIPIDEMIA CORONARY ARTERY DISEASE Assessment and Plan COVID-19 PNEUMONIA WEAKNESS DEHYDRATION DIABETES MELLITUS CHRONIC URGE INCONTINENCE DEMENTIA HYPERTENSION ATRIAL FIBRILLATION HYPERLIPIDEMIA CORONARY ARTERY DISEASE ANEMIA COVID-19 PNEUMONIA - PT IS NOT IN THE WINDOW OF CRITERIA FOR TREATMENT OF COVID WITH REMDESIVIR - WHITE COUNT IMPROVED FROM 14.9 DOWN TO 11.3 ON 05/23/21 - CHECKING TODAY WEAKNESS - - WILL REQUIRE THERAPY ON DISCHARGE DEHYDRATION - ON IV FLUIDS - MONITOR LABS ANEMIA - HGB DOWN FROM 14.2 TO 12.7 ON 05/23/21, CONTINUE TO MONITOR LABS DIABETES MELLITUS - RESUMED METFORMIN CHECK FSBS AC/HS CHRONIC URGE INCONTINENCE WITH BPH - - RESTART FLOMAX, AND ANTICHOLINERGIC DEMENTIA - HOLD HOME MEDS FOR NOW HYPERTENSION - RESUME CALCIUM CHANNEL YOSVANY - MONITOR PRESSURES ATRIAL FIBRILLATION - RATE CONTROLLED - RESUME CURRENT TREATMENT - PT NOT ON ANTICOAGULATION DUE TO RISK OF BLEEDING WITH FALLS, AND GI BLEEDING CORONARY ARTERY DISEASE - SUPPORTIVE CARE, MEDICAL MANAGEMENT DVT PROPHYLAXIS WITH LOVENOX AND SCD'S GI PROPHYLAXIS WITH PPI WORKING ON PLACEMENT AT [facility] IF THEY WILL TAKE PT WITH COVID Problems: (1) COVID-19 virus infection (2) Weakness (3) Spinal stenosis Admission Dx COVID-19 PNEUMONIA WEAKNESS DEHYDRATION DIABETES MELLITUS CHRONIC URGE INCONTINENCE DEMENTIA HYPERTENSION ATRIAL FIBRILLATION HYPERLIPIDEMIA CORONARY ARTERY DISEASE Clinical Quality Measures Admission Status Admission Dx COVID-19 PNEUMONIA WEAKNESS DEHYDRATION DIABETES MELLITUS CHRONIC URGE INCONTINENCE DEMENTIA HYPERTENSION ATRIAL FIBRILLATION HYPERLIPIDEMIA CORONARY ARTERY DISEASE SHEILA TIAN MD May 25, 2021 08:47
[2021-05-25 09:24] LABS: HEMATOCRIT 39 % (40-54); HEMOGLOBIN 12.6 g/dL (13.3-17.7); MEAN CORPUSCULAR HEMOGLOBIN 28 pg (25-34); MEAN CORPUSCULAR HGB CONC 33 g/dL (32-36); MEAN CORPUSCULAR VOLUME 85 fL (80-99); MEAN PLATELET VOLUME 9.5 fL (9.0-12.2); PLATELET COUNT 326 10^3/uL (130-400); WHITE BLOOD COUNT 20.4 10^3/uL (4.3-11.0)
[2021-05-25] MEDS: PANTOPRAZOLE 40 MG (PROTONIX) TAB PO SCH (09:30)
[2021-05-25] MEDS: AZITHROMYCIN 250 MG TAB (ZITHROMAX) PO SCH (09:30)
[2021-05-25] MEDS: TOLTERODINE LA 2 MG (DETROL LA) CAP PO SCH (09:30)
[2021-05-25] MEDS: ASPIRIN E.C. 81 MG (ECOTRIN) TAB PO SCH (09:30)
[2021-05-25] MEDS: metFORMIN XR 500 MG (GLUCOPHAGE XR) TAB PO SCH ×2 (09:30→17:31)
[2021-05-25] MEDS: LACTOBACILLUS ACIDOPHILUS (PROBIOTIC) CAPSULE PO SCH ×3 (09:30→17:31)
[2021-05-25 09:50] LABS: BUN/CREATININE RATIO 19; CARBON DIOXIDE 24 MMOL/L (21-32); CHLORIDE 108 MMOL/L (98-107); CREATININE SERUM 0.85 MG/DL (0.60-1.30); GFR ESTIMATED > 60; GLUCOSE 149 MG/DL (70-105); POTASSIUM 3.6 MMOL/L (3.6-5.0); SODIUM 143 MMOL/L (135-145)
[2021-05-25] MEDS: ENOXAPARIN 40 MG/0.4 ML (LOVENOX) SYR SC SCH (12:19)
--- NOTE | 2021-05-25 14:54 | Physical Therapy Evaluation ---
PT Evaluation-General Medical Diagnosis Admission Date May 22, 2021 at 10:44 Medical Diagnosis: Covid Onset Date: May 22, 2021 Therapy Diagnosis Therapy Diagnosis: generalized weakness/debility Height/Weight Height (Feet): 6 Height (Inches): 0 Weight (Pounds): 212 Weight (Ounces): 0.0 Precautions Precautions/Isolations: Airborne Isolation, Fall Prevention Referral Physician: Ketan Reason for Referral: Evaluation/Treatment Medical History Pertinent Medical History: Atrial Fib, CABG, CAD, DM, Dementia, HTN, PVD Current History EMS secondary to SOB, congestion, sore throat x 5-7 days (spouse has it as well) Reviewed History: Yes Social History Home: Single Level Current Living Status: Spouse Prior Prior Level of Function SCALE: Activities may be completed with or without assistive devices. 6-Pvfvcoxwia-rxaasxc completes the activity by him/herself with no assistance from a helper. 5-Set-up or Clean-up Assistance-helper sets up or cleans up; patient completes activity. [place] assists only prior to or following the activity. 4-Supervision or Touching Assistance-helper provides verbal cues and/or touching/steadying and/or contact guard assistance as patient completes activity. Assistance may be provided throughout the activity or intermittently. 3-Partial/Moderate Assistance-helper does LESS THAN HALF the effort. [place] lifts, holds or supports trunk or limbs, but provides less than half the effort. 2-Substantial/Maximal Assistance-helper does MORE THAN HALF the effort. [place] lifts or holds trunk or limbs and provides more than half the effort. 6-Vbpgjlyuj-selhiw does ALL the effort. Patient does none of the effort to complete the activity. Or, the assistance of 2 or more helpers is required for the patient to complete the activity. If activity was not attempted, code reason: 7-Patient Refused. 9-Not Applicable-not attempted and the patient did not perform the activity before the current illness, exacerbation or injury. 10-Not Attempted due to Environmental Limitations-(lack of equipment, weather restraints, etc.). 88-Not Attempted due to Medical Conditions or Safety Concerns. Bed Mobility: 3 Transfers (B,C,W/C): 3 Gait: 3 Stairs: 9 Indoor Mobility (Ambulation): Needed Some Help Stairs: Not Applicalbe Prior Devices Use: Manual wheelchair, Walker PT Evaluation-Current Subjective Patient agrees to PT. Objective Patient Orientation: Confused Attachments: Tellez Catheter, IV ROM/Strength ROM Lower Extremities bilateral LE WFL Strength Lower Extremities 3+/5 grossly bilateral LE Integumentary/Posture Bowel Incontinence: Yes Bladder Incontinence: Tellez Cath Posture trunk flexed/knee flexed posture Neuromuscular (Tone, Coordination, Reflexes) diminished coordination (Parkinson's like gait with difficulty initiating bilateral movement) Sensory Vision: Functional Hearing: Impaired Transfers Sit to Lying (QC): 2 Lying to Sitting/Side of Bed(Q: 2 Sit to Stand (QC): 2 Chair/Jcc-jn-Gazlo Xfer(QC): 2 Toilet Transfer (QC): 2 Gait Does the Patient Walk?: Yes Mode of Locomotion: Both Anticipated Mode of Locomotion: Both Walk 10 feet (QC): 2 Walk 50 ft with 2 Turns(QC): 88 Walk 150 ft (QC): 88 Distance: 10' Gait Assistive Device: FWW Comments/Gait Description difficulty with initiating bilateral LE movement. Balance Sitting Static: Fair Sitting Dynamic: Fair Standing Static: Fair Standing Dynamic: Poor Assessment/Needs 81 y.o. male, will be seen by skilled PT to address functional strength and mo bility to improve current LOF. Rehab Potential: Fair PT Elephant Tamer Goals Mcfp Goals PT Mcfp Goals Time Frame: Jun 06, 2021 Roll Left & Right (QC): 4 Sit to Lying (QC): 4 Lying-Sitting on Side/Bed(QC): 4 Sit to Stand (QC): 4 Chair/Tvk-eo-Xiayz Xfer(QC): 4 Toilet Transfer (QC): 4 Does the Patient Walk: Yes Walk 10 feet (QC): 4 Walk 50ft with 2 Turns (QC): 4 PT Plan Problem List Problem List: Activity Tolerance, Functional Strength, Safety, Balance, Gait, Transfer, Bed Mobility Treatment/Plan Treatment Plan: Continue Plan of Care Treatment Plan: Bed Mobility, Education, Functional Activity Agustin, Functional Strength, Gait, Safety, Therapeutic Exercise, Transfers Treatment Duration: Jun 06, 2021 Frequency: 6 times per week Estimated Hrs Per Day: .25 hour per day Patient and/or Family Agrees t: Yes Time/GCodes Time In: 1335 Time Out: 1356 Total Billed Treatment Time: 21 Total Billed Treatment 1 visit EVMod 21 min INO WISE PT May 25, 2021 14:54
[2021-05-25] MEDS: TAMSULOSIN 0.4 MG (FLOMAX) CAP PO SCH (17:31)
[2021-05-26 03:47] VITALS: BP 161/74
[2021-05-26] MEDS: dexAMETHasone 6 MG TAB (DECADRON) PO SCH (06:07)
[2021-05-26] MEDS: inSUlin ASPART (NovoLOG) 1 UNIT/0.01 ML (CHARGE PER UNIT) SC SCH ×5 (06:08→20:47)
[2021-05-26] MEDS: ALBUTEROL/IPRATROP (COMBIVENT RESPIMAT) 4 GM INHALER IH SCH ×3 (06:38→21:11)
[2021-05-26 07:30] VITALS: BP 163/67
--- NOTE | 2021-05-26 08:37 | Discharge Summary ---
Diagnosis/Chief Complaint Date of Admission May 22, 2021 at 10:44 Date of Discharge Admission Diagnosis Admission Diagnosis COVID-19 PNEUMONIA WEAKNESS DEHYDRATION DIABETES MELLITUS CHRONIC URGE INCONTINENCE DEMENTIA HYPERTENSION ATRIAL FIBRILLATION HYPERLIPIDEMIA CORONARY ARTERY DISEASE ANEMIA Discharge Diagnosis COVID-19 PNEUMONIA WEAKNESS DEHYDRATION DIABETES MELLITUS CHRONIC URGE INCONTINENCE DEMENTIA HYPERTENSION ATRIAL FIBRILLATION HYPERLIPIDEMIA CORONARY ARTERY DISEASE ANEMIA Reason Hospital Visit PT IS AN 81 YO MALE WHO IS WELL KNOWN TO ME FROM CLINIC. PER REPORT, PT WAS EXPOSED TO HIS STEP-DTR WHO WAS COVID POSITIVE IN THE PAST 2 WEEKS. HE STARTED TO FEEL POORLY ON 05/15/2021 AND WAS FEELING INCREASINGLY WEAK AND LETHARGIC OVER THIS PAST WEEK. HE WAS NOT EATING WELL AND HIS SPOUSE WAS ALSO FEELING ILL. THEY CALLED MY OFFICE YESTERDAY TO 'GET SOMETHING CALLED OUT' - HOWEVER WE ADVISED THE PT AND HIS MULTIPLE TIMES THAT THEY NEEDED TO BE TESTED FOR COVID AND TREATED FOR COVID INSTEAD OF JUST "CALLING OUT" MEDICATIONS. THEY REFUSED TO GET TESTED SINCE VITO WAS "TOO WEAK" TO GET OUT OF THE HOUSE. WE THEN ADVISED THEM TO GO TO THE ER, BUT THEY WERE NOT WILLING TO GO YESTERDAY. HOWEVER AFTER FEELING SIGNIFICANTLY WORSE TODAY - THEY PRESENTED TO THE ER, FOUND TO BE COVID POSITIVE AND IN RESPIRATORY DISTRESS. Discharge Summary Discharge Physical Examination Allergies: Coded Allergies: NKANo Known Allergies (Verified Allergy, Unknown, 01/03/06) Vitals & I&Os Vital Signs Date Time Temp Pulse Resp B/P (MAP) Pulse Ox O2 Delivery O2 Flow Rate FiO2 05/26/21 07:30 36.2 66 17 163/67 (99) 98 Room Air 05/25/21 05:48 21 05/22/21 19:31 2.00 Hospital Course COVID-19 PNEUMONIA WEAKNESS DEHYDRATION DIABETES MELLITUS CHRONIC URGE INCONTINENCE DEMENTIA HYPERTENSION ATRIAL FIBRILLATION HYPERLIPIDEMIA CORONARY ARTERY DISEASE ANEMIA COVID-19 PNEUMONIA - PT IS NOT IN THE WINDOW OF CRITERIA FOR TREATMENT OF COVID WITH REMDESIVIR - WHITE COUNT IMPROVED FROM 14.9 DOWN TO 11.3 ON 05/23/21 - CHECKING TODAY WEAKNESS - - WILL REQUIRE THERAPY ON DISCHARGE DEHYDRATION - ON IV FLUIDS - MONITOR LABS ANEMIA - HGB DOWN FROM 14.2 TO 12.7 ON 05/23/21, CONTINUE TO MONITOR LABS DIABETES MELLITUS - RESUMED METFORMIN CHECK FSBS AC/HS CHRONIC URGE INCONTINENCE WITH BPH - - RESTART FLOMAX, AND ANTICHOLINERGIC DEMENTIA - HOLD HOME MEDS FOR NOW HYPERTENSION - RESUME CALCIUM CHANNEL YOSVANY - MONITOR PRESSURES ATRIAL FIBRILLATION - RATE CONTROLLED - RESUME CURRENT TREATMENT - PT NOT ON ANTICOAGULATION DUE TO RISK OF BLEEDING WITH FALLS, AND GI BLEEDING CORONARY ARTERY DISEASE - SUPPORTIVE CARE, MEDICAL MANAGEMENT DVT PROPHYLAXIS WITH LOVENOX AND SCD'S GI PROPHYLAXIS WITH PPI PT NEEDS PLACEMENT AT LONG-TERM, WILL HAVE TO LOOK INTO A LONG-TERM OTHER THAN FAMILY FIRST CHOICE SINCE HE HAS COVID AND THE FACILITY IS REFUSING TO TAKE HIM AT [facility] Pending Labs Laboratory Tests 05/26/21 05:43: Glucometer 218 Discharge Instructions to patient/family Please see electronic discharge instructions given to patient. Discharge Medications Reviewed and agree with Discharge Medication list on patient's Discharge Instruction sheet SHEILA TIAN MD May 26, 2021 08:37
[2021-05-26] MEDS: ASPIRIN E.C. 81 MG (ECOTRIN) TAB PO SCH (09:12)
[2021-05-26] MEDS: LACTOBACILLUS ACIDOPHILUS (PROBIOTIC) CAPSULE PO SCH ×3 (09:12→17:25)
[2021-05-26] MEDS: metFORMIN XR 500 MG (GLUCOPHAGE XR) TAB PO SCH ×2 (09:12→17:25)
[2021-05-26] MEDS: AZITHROMYCIN 250 MG TAB (ZITHROMAX) PO SCH (09:12)
[2021-05-26] MEDS: PANTOPRAZOLE 40 MG (PROTONIX) TAB PO SCH (09:12)
[2021-05-26] MEDS: TOLTERODINE LA 2 MG (DETROL LA) CAP PO SCH (09:13)
--- NOTE | 2021-05-26 09:20 | Physical Therapy Daily Note ---
PT Daily Note-Current Subjective Patient agrees to PT. Mental Status Patient Orientation: Confused Attachments: Tellez Catheter, IV Transfers SCALE: Activities may be completed with or without assistive devices. 0-Gpsfcgatys-ahpfmky completes the activity by him/herself with no assistance from a helper. 5-Set-up or Clean-up Assistance-helper sets up or cleans up; patient completes activity. [place] assists only prior to or following the activity. 4-Supervision or Touching Assistance-helper provides verbal cues and/or touching/steadying and/or contact guard assistance as patient completes activity. Assistance may be provided throughout the activity or intermittently. 3-Partial/Moderate Assistance-helper does LESS THAN HALF the effort. [place] lifts, holds or supports trunk or limbs, but provides less than half the effort. 2-Substantial/Maximal Assistance-helper does MORE THAN HALF the effort. [place] lifts or holds trunk or limbs and provides more than half the effort. 0-Zocyfyckw-gkxfqt does ALL the effort. Patient does none of the effort to complete the activity. Or, the assistance of 2 or more helpers is required for the patient to complete the activity. If activity was not attempted, code reason: 7-Patient Refused. 9-Not Applicable-not attempted and the patient did not perform the activity before the current illness, exacerbation or injury. 10-Not Attempted due to Environmental Limitations-(lack of equipment, weather restraints, etc.). 88-Not Attempted due to Medical Conditions or Safety Concerns. Lying to Sitting/Side of Bed(Q: 2 Sit to Stand (QC): 2 Chair/Wcy-am-Rmevw Xfer(QC): 2 patient very retropulsive with right lean with PT correct/shuffle gait sequence/unable to utilize FWW for mobility due to confusion/weakness Gait Training Does the Patient Walk?: No and Walking Goal IS indicated Exercises Seated Therapy Exercises: Ankle pumps, Long arc quads Seated Reps: 15 (AAROM) Assessment Poor balance in sit and stand. Limited mobility due to weakness and inability to correct PT Steam Conditioner Operator Goals Skilled Nursing Goals PT Skilled Nursing Goals Time Frame: Jun 06, 2021 Roll Left & Right (QC): 4 Sit to Lying (QC): 4 Lying-Sitting on Side/Bed(QC): 4 Sit to Stand (QC): 4 Chair/Vjb-kv-Cgtth Xfer(QC): 4 Toilet Transfer (QC): 4 Does the Patient Walk: Yes Walk 10 feet (QC): 4 Walk 50ft with 2 Turns (QC): 4 PT Plan Treatment/Plan Treatment Plan: Continue Plan of Care Treatment Plan: Bed Mobility, Education, Functional Activity Agustin, Functional Strength, Gait, Safety, Therapeutic Exercise, Transfers Treatment Duration: Jun 06, 2021 Frequency: 6 times per week Estimated Hrs Per Day: .25 hour per day Patient and/or Family Agrees t: Yes Time/GCodes Time In: 801 Time Out: 813 Total Billed Treatment Time: 12 Total Billed Treatment 1 visit FA 12 min INO WISE PT May 26, 2021 09:20
[2021-05-26 11:20] VITALS: BP 155/78
--- NOTE | 2021-05-26 11:34 | Pulmonary Progress Note ---
Subjective Date Seen by a Provider: May 26, 2021 Time Seen by a Provider: 11:15 Subjective/Events-last exam Patient states that he is feeling better and ready to go home. He is awaiting his to get better. Denies any chest pain shortness of breath. Appetite is good Sepsis Event Evaluation Height, Weight, BMI Height: 6'0" Weight: 212lbs. 0.0oz. 96.268799nf; 23.95 BMI Method:Stated Exam Exam Patient acknowledged, consented, and participated in this virtual visit which was conducted using real time audio/video Vital Signs Date Time Temp Pulse Resp B/P (MAP) Pulse Ox O2 Delivery O2 Flow Rate FiO2 05/26/21 11:20 36.6 70 20 155/78 (103) 95 Room Air 05/26/21 08:00 95 Room Air 05/26/21 07:30 36.2 66 17 163/67 (99) 98 Room Air 05/26/21 06:38 95 Room Air 05/26/21 03:47 36.4 68 18 161/74 (103) 93 Room Air 05/25/21 23:48 36.8 71 18 153/71 (98) 93 Room Air 05/25/21 20:00 95 Room Air 05/25/21 19:51 36.2 69 18 138/85 (102) 93 Room Air 05/25/21 18:25 95 Room Air 05/25/21 15:38 96 Room Air 05/25/21 15:13 36.1 81 20 167/70 (102) 96 Room Air I & O 05/26/21 07:00 Intake Total 1705 ml Output Total 1825 ml Balance -120 ml Height & Weight Height: 6'0" Weight: 212lbs. 0.0oz. 96.777574xs; 23.95 BMI Method:Stated General Appearance: No Apparent Distress, WD/WN, Chronically ill HEENT: PERRL/EOMI, Pharynx Normal Neck: Full Range of Motion, Non Tender, Supple Respiratory: Chest Non Tender, Lungs Clear, Normal Breath Sounds, No Accessory Muscle Use, No Respiratory Distress Cardiovascular: Regular Rate, Rhythm, Normal Peripheral Pulses Capillary Refill: Less Than 3 Seconds Extremity: Normal Capillary Refill, Non Tender, No Calf Tenderness, No Pedal Edema Neurologic/Psychiatric: Alert, Disoriented (ORIENTED TO PERSON, NOT PLACE OR TIME), Other (FLAT AFFECT) Skin: Normal Color, Warm/Dry Lymphatic: No Adenopathy Results Lab Laboratory Tests 05/25/21 09:12 Meds reviwed Assessment/Plan Assessment/Plan 1. Acute Covid viral infection clinically better. 2. History of hypertension 3. History of coronary artery disease status post bypass surgery 4. Peripheral arterial disease 5. Spinal stenosis with the difficulty in ambulation. 6. Leukocytosis probably due to steroids 7. High risk for DVT. on lovenox Recommendations 1. Agree to discontinue steroids. 2. Acetaminophen as needed for pain 3. DVT prophylaxis 4. home when ok with attending physician. Time spent with patient (mins): 20 Diagnosis/Problems Diagnosis/Problems (1) COVID-19 virus infection Status: Acute (2) Weakness Status: Acute (3) Spinal stenosis Status: Acute MARTINE MERCADO MD May 26, 2021 11:34
[2021-05-26] MEDS: ENOXAPARIN 40 MG/0.4 ML (LOVENOX) SYR SC SCH (12:48)
[2021-05-26 16:49] VITALS: BP 162/67
[2021-05-26] MEDS: TAMSULOSIN 0.4 MG (FLOMAX) CAP PO SCH (17:25)
[2021-05-26 19:45] VITALS: BP 138/73
[2021-05-26 23:29] VITALS: BP 155/80
[2021-05-27 04:05] VITALS: BP 127/95
[2021-05-27] MEDS: inSUlin ASPART (NovoLOG) 1 UNIT/0.01 ML (CHARGE PER UNIT) SC SCH ×4 (05:37→20:09)
[2021-05-27] MEDS: ALBUTEROL/IPRATROP (COMBIVENT RESPIMAT) 4 GM INHALER IH SCH ×5 (07:24→18:49)
[2021-05-27 07:30] VITALS: BP 136/64
[2021-05-27] MEDS: LACTOBACILLUS ACIDOPHILUS (PROBIOTIC) CAPSULE PO SCH ×3 (09:04→17:12)
[2021-05-27] MEDS: metFORMIN XR 500 MG (GLUCOPHAGE XR) TAB PO SCH ×2 (09:04→17:12)
[2021-05-27] MEDS: ASPIRIN E.C. 81 MG (ECOTRIN) TAB PO SCH (09:04)
[2021-05-27] MEDS: PANTOPRAZOLE 40 MG (PROTONIX) TAB PO SCH (09:04)
[2021-05-27] MEDS: TOLTERODINE LA 2 MG (DETROL LA) CAP PO SCH (09:04)
--- NOTE | 2021-05-27 09:38 | Progress Note ---
Subjective Subjective Date Seen by Provider: May 28, 2021 Time Seen by Provider: 09:00 PT IS AN 81 Y/O MALE WHO HAS COVID-19. VITO REPORTS THAT HE IS FEELING BETTER, HE DENIES CHEST PAIN, ABDOMINAL PAIN, NAUSEA, CONSTIPATION, HAS CHRONIC INCONTINENCE. VITO REPORTS THAT HE IS "GOOD" AND HE ONLY HAS AN INTERMITTENT COUGH. HE REPORTS THAT HE HAS A GOOD APPETITE, IS WONDERING IF HIS CAN COME IN TO SEE HIM TODAY. Review of Systems General: No Chills; Fatigue, Malaise HEENT: No Dysphasia Pulmonary: No Dyspnea; Cough (INTERMITTENT) Cardiovascular: No: Chest Pain, Palpitations Gastrointestinal: No: Nausea, Abdominal Pain Genitourinary: No Dysuria Neurological: Weakness All Other Systems Reviewed All Other Systems Reviewed: Yes Objective Exam Vital Signs Vital Signs - First Documented 05/22/21 05/22/21 05/22/21 08:52 12:00 12:57 Temp 36.7 Pulse 97 Resp 16 B/P (MAP) 146/84 (104) Pulse Ox 95 O2 Delivery Room Air O2 Flow Rate 2.00 FiO2 28 Capillary Refill : Less Than 3 Seconds General Appearance: No Apparent Distress, WD/WN, Chronically ill Eyes: Bilateral Eye Normal Inspection, Bilateral Eye PERRL, Bilateral Eye EOMI HEENT: PERRL/EOMI, Pharynx Normal Neck: Full Range of Motion, Non Tender, Supple Respiratory: Chest Non Tender, Lungs Clear, Normal Breath Sounds, No Accessory Muscle Use, No Respiratory Distress Cardiovascular: Regular Rate, Rhythm, Normal Peripheral Pulses Gastrointestinal: Normal Bowel Sounds, No Organomegaly, No Pulsatile Mass, Non Tender, Soft Rectal: Deferred Back: Other (KYPHOSIS) Extremity: Normal Capillary Refill, Non Tender, No Calf Tenderness, No Pedal Edema Neurologic/Psychiatric: Alert, Disoriented (ORIENTED TO PERSON, NOT PLACE OR TIME), Other (FLAT AFFECT) Skin: Normal Color, Warm/Dry Lymphatic: No Adenopathy Results Lab Laboratory Tests 05/26/21 11:24: Glucometer 327H 05/26/21 16:48: Glucometer 269H 05/26/21 19:47: Glucometer 239H 05/27/21 05:15: Glucometer 138H Microbiology 05/22/21 Blood Culture - Preliminary, Resulted No growth 05/22/21 Urine Culture - Final, Complete NO GROWTH Assessment/Plan Assessment/Plan Admission Dx COVID-19 PNEUMONIA WEAKNESS DEHYDRATION DIABETES MELLITUS CHRONIC URGE INCONTINENCE DEMENTIA HYPERTENSION ATRIAL FIBRILLATION HYPERLIPIDEMIA CORONARY ARTERY DISEASE ANEMIA Assessment and Plan COVID-19 PNEUMONIA WEAKNESS DEHYDRATION DIABETES MELLITUS CHRONIC URGE INCONTINENCE DEMENTIA HYPERTENSION ATRIAL FIBRILLATION HYPERLIPIDEMIA CORONARY ARTERY DISEASE ANEMIA COVID-19 PNEUMONIA - PT WAS NOT IN THE WINDOW OF CRITERIA FOR TREATMENT OF COVID WITH REMDESIVIR - WHITE COUNT ELEVATED - STEROID STOPPED DUE TO WHITE COUNT ELEVATION WEAKNESS - - WILL CONTINUE TO REQUIRE THERAPY ON DISCHARGE DEHYDRATION - ON IV FLUIDS - MONITOR LABS ANEMIA -STABLE DIABETES MELLITUS - RESUMED METFORMIN CHECK FSBS AC/HS CHRONIC URGE INCONTINENCE WITH BPH - - RESTARTED FLOMAX, AND ANTICHOLINERGIC DEMENTIA - HOLD HOME MEDS FOR NOW HYPERTENSION - RESUME CALCIUM CHANNEL YOSVANY - MONITOR PRESSURES ATRIAL FIBRILLATION - RATE CONTROLLED - RESUME CURRENT TREATMENT - PT NOT ON ANTICOAGULATION DUE TO RISK OF BLEEDING WITH FALLS, AND GI BLEEDING CORONARY ARTERY DISEASE - SUPPORTIVE CARE, MEDICAL MANAGEMENT DVT PROPHYLAXIS WITH LOVENOX AND SCD'S GI PROPHYLAXIS WITH PPI WORKING ON PLACEMENT AT [facility] IF THEY WILL TAKE PT Problems: (1) COVID-19 virus infection (2) Weakness (3) Spinal stenosis Admission Dx COVID-19 PNEUMONIA WEAKNESS DEHYDRATION DIABETES MELLITUS CHRONIC URGE INCONTINENCE DEMENTIA HYPERTENSION ATRIAL FIBRILLATION HYPERLIPIDEMIA CORONARY ARTERY DISEASE ANEMIA Clinical Quality Measures Admission Status Admission Dx COVID-19 PNEUMONIA WEAKNESS DEHYDRATION DIABETES MELLITUS CHRONIC URGE INCONTINENCE DEMENTIA HYPERTENSION ATRIAL FIBRILLATION HYPERLIPIDEMIA CORONARY ARTERY DISEASE ANEMIA SHEILA TIAN MD May 27, 2021 09:38
--- NOTE | 2021-05-27 09:46 | Pulmonary Progress Note ---
Subjective Date Seen by a Provider: May 27, 2021 Time Seen by a Provider: 09:15 Subjective/Events-last exam Today he states that he is my feeling much better and wants to go home. He was referred to a [facility] facility but the apparently could not take him given his condition and a Covid positive. But patient does not want to go to a half-way. He wants his to take care of him who is also in the hospital in another room. Denies any chest pain, shortness of breath. No fever present. He is on room air. Sepsis Event Evaluation Height, Weight, BMI Height: 6'0" Weight: 212lbs. 0.0oz. 96.864668au; 23.95 BMI Method:Stated Exam Exam Patient acknowledged, consented, and participated in this virtual visit which was conducted using real time audio/video Vital Signs Date Time Temp Pulse Resp B/P (MAP) Pulse Ox O2 Delivery O2 Flow Rate FiO2 05/27/21 07:30 36.1 63 19 136/64 (88) 92 Room Air 05/27/21 07:24 94 Room Air 05/27/21 04:05 37.0 55 18 127/95 (106) 95 Room Air 05/26/21 23:29 36.8 82 18 155/80 (105) 94 Room Air 05/26/21 21:11 96 Room Air 05/26/21 19:45 37.0 78 17 138/73 (94) 93 Room Air 05/26/21 19:30 97 Room Air 05/26/21 16:49 36.8 77 20 162/67 (98) 97 Room Air 05/26/21 14:34 95 Room Air 05/26/21 11:20 36.6 70 20 155/78 (103) 95 Room Air I & O 05/27/21 07:00 Intake Total 2770 ml Output Total 3825 ml Balance -1055 ml Height & Weight Height: 6'0" Weight: 212lbs. 0.0oz. 96.214773xh; 23.95 BMI Method:Stated General Appearance: No Apparent Distress, WD/WN, Chronically ill HEENT: PERRL/EOMI, Pharynx Normal Neck: Full Range of Motion, Non Tender, Supple Respiratory: Chest Non Tender, Lungs Clear, Normal Breath Sounds, No Accessory Muscle Use, No Respiratory Distress Cardiovascular: Regular Rate, Rhythm, Normal Peripheral Pulses Capillary Refill: Less Than 3 Seconds Extremity: Normal Capillary Refill, Non Tender, No Calf Tenderness, No Pedal Edema Neurologic/Psychiatric: Alert, Disoriented (ORIENTED TO PERSON, NOT PLACE OR TIME), Other (FLAT AFFECT) Skin: Normal Color, Warm/Dry Lymphatic: No Adenopathy Results Lab reviewed Meds reviewed Assessment/Plan Assessment/Plan 1. Acute Covid viral infection clinically better. 2. History of hypertension 3. History of coronary artery disease status post bypass surgery 4. Peripheral arterial disease 5. Spinal stenosis with the difficulty in ambulation. 6. Leukocytosis probably due to steroids, now off steroids 7. High risk for DVT. on lovenox Recommendations 1. Agree to discontinue steroids. 2. Acetaminophen as needed for pain 3. DVT prophylaxis 4. home when ok with attending physician. Time spent with patient (mins): 15 Diagnosis/Problems Diagnosis/Problems (1) COVID-19 virus infection Status: Acute (2) Weakness Status: Acute (3) Spinal stenosis Status: Acute MARTINE MERCADO MD May 27, 2021 09:46
[2021-05-27] MEDS: ENOXAPARIN 40 MG/0.4 ML (LOVENOX) SYR SC SCH (12:00)
--- NOTE | 2021-05-27 14:37 | Physical Therapy Daily Note ---
PT Daily Note-Current Subjective Pt agrees to PT. Wants to return to bed. Transfers SCALE: Activities may be completed with or without assistive devices. 8-Okffpatkef-wdyzmoe completes the activity by him/herself with no assistance from a helper. 5-Set-up or Clean-up Assistance-helper sets up or cleans up; patient completes activity. [place] assists only prior to or following the activity. 4-Supervision or Touching Assistance-helper provides verbal cues and/or touching/steadying and/or contact guard assistance as patient completes activity. Assistance may be provided throughout the activity or intermittently. 3-Partial/Moderate Assistance-helper does LESS THAN HALF the effort. [place] lifts, holds or supports trunk or limbs, but provides less than half the effort. 2-Substantial/Maximal Assistance-helper does MORE THAN HALF the effort. [place] lifts or holds trunk or limbs and provides more than half the effort. 9-Ngpsstrgn-eflqch does ALL the effort. Patient does none of the effort to complete the activity. Or, the assistance of 2 or more helpers is required for the patient to complete the activity. If activity was not attempted, code reason: 7-Patient Refused. 9-Not Applicable-not attempted and the patient did not perform the activity before the current illness, exacerbation or injury. 10-Not Attempted due to Environmental Limitations-(lack of equipment, weather restraints, etc.). 88-Not Attempted due to Medical Conditions or Safety Concerns. Roll Left & Right (QC): 4 Sit to Lying (QC): 2 Sit to Stand (QC): 2 Chair/Lph-ku-Mypfd Xfer(QC): 2 (max assist, but pt participatory and able to bear weight and take steps to turn. ) Treatments Transferred chair to bed; positioned in bed; able to scoot up in bed with cues to sequence and initiate task. Incont of BM> Pt rolled to allow this therapist to clean him. Bed alarm activated post visit. Bedrails up x 4. Assessment Current Status: Good Progress Improved ability to stand and transfer. Decreased retropulsion noted. PT Blow Moulding Machine Operator Goals Blow Moulding Machine Operator Goals PT Mcfp Goals Time Frame: Jun 06, 2021 Roll Left & Right (QC): 4 Sit to Lying (QC): 4 Lying-Sitting on Side/Bed(QC): 4 Sit to Stand (QC): 4 Chair/Okp-er-Lbukv Xfer(QC): 4 Toilet Transfer (QC): 4 Does the Patient Walk: Yes Walk 10 feet (QC): 4 Walk 50ft with 2 Turns (QC): 4 PT Plan Problem List Problem List: Activity Tolerance, Functional Strength, Safety, Balance, Gait, Transfer, Bed Mobility Treatment/Plan Treatment Plan: Continue Plan of Care Treatment Plan: Bed Mobility, Education, Functional Activity Agustin, Functional Strength, Gait, Safety, Therapeutic Exercise, Transfers Treatment Duration: Jun 06, 2021 Frequency: 6 times per week Estimated Hrs Per Day: .25 hour per day Patient and/or Family Agrees t: Yes Safety Risks/Education Patient Education: Transfer Techniques, Safety Issues Teaching Recipient: Patient Teaching Methods: Demonstration, Discussion Response to Teaching: Reinforcement Needed Time/GCodes Time In: 1400 Time Out: 1425 Total Billed Treatment Time: 25 Total Billed Treatment visit FA 25 SONY SALINAS PT May 27, 2021 14:37
[2021-05-27 15:24] VITALS: BP 142/67
[2021-05-27] MEDS: TAMSULOSIN 0.4 MG (FLOMAX) CAP PO SCH (17:12)
[2021-05-27 23:00] VITALS: BP 116/65
[2021-05-27] MEDS ORDERED: NS (IVPB) 250 ML ONE (23:38)
[2021-05-27] MEDS ORDERED: NS (IVPB) 250 ML IV ONE (23:45)
[2021-05-28] MEDS: inSUlin ASPART (NovoLOG) 1 UNIT/0.01 ML (CHARGE PER UNIT) SC SCH ×4 (06:13→20:22)
[2021-05-28] MEDS: ALBUTEROL/IPRATROP (COMBIVENT RESPIMAT) 4 GM INHALER IH SCH ×3 (07:53→20:51)
[2021-05-28 08:00] VITALS: BP 102/59
--- NOTE | 2021-05-28 08:33 | Progress Note ---
Subjective Subjective Date Seen by Provider: May 28, 2021 Time Seen by Provider: 08:33 PT IS AN 81 Y/O MALE WHO HAS COVID-19. VITO REPORTS THAT HE IS FEELING BETTER, HE DENIES CHEST PAIN, ABDOMINAL PAIN, NAUSEA, CONSTIPATION, HAS CHRONIC INCONTINENCE. STAFF REPORTED PT WAS IN AFIB LAST NIGHT HEART RATE RANGING FROM 60'S TO 110'S Review of Systems General: No Chills; Fatigue, Malaise HEENT: No Dysphasia Pulmonary: No Dyspnea; Cough (INTERMITTENT) Cardiovascular: No: Chest Pain, Palpitations, Edema Gastrointestinal: No: Nausea, Vomiting, Abdominal Pain, Diarrhea, Constipation Genitourinary: No Dysuria Musculoskeletal: back pain Neurological: Weakness All Other Systems Reviewed All Other Systems Reviewed: Yes Objective Exam Vital Signs Vital Signs - First Documented 05/22/21 05/22/21 05/22/21 08:52 12:00 12:57 Temp 36.7 Pulse 97 Resp 16 B/P (MAP) 146/84 (104) Pulse Ox 95 O2 Delivery Room Air O2 Flow Rate 2.00 FiO2 28 Capillary Refill : Less Than 3 Seconds General Appearance: No Apparent Distress, WD/WN, Chronically ill Eyes: Bilateral Eye Normal Inspection, Bilateral Eye PERRL, Bilateral Eye EOMI HEENT: PERRL/EOMI, Pharynx Normal Neck: Full Range of Motion, Non Tender, Supple Respiratory: Chest Non Tender, Lungs Clear, Normal Breath Sounds, No Accessory Muscle Use, No Respiratory Distress Cardiovascular: Regular Rate, Rhythm, Normal Peripheral Pulses Gastrointestinal: Normal Bowel Sounds, No Organomegaly, No Pulsatile Mass, Non Tender, Soft Rectal: Deferred Back: Other (KYPHOSIS) Extremity: Normal Capillary Refill, Non Tender, No Calf Tenderness, No Pedal Edema Neurologic/Psychiatric: Alert, Disoriented (ORIENTED TO PERSON, NOT PLACE OR TIME), Other (FLAT AFFECT) Skin: Normal Color, Warm/Dry Lymphatic: No Adenopathy Results Lab Laboratory Tests 05/27/21 11:18: Glucometer 248H 05/27/21 15:30: Glucometer 300H 05/27/21 19:13: Glucometer 211H 05/28/21 06:12: Glucometer 94 Microbiology 05/22/21 Blood Culture - Final, Complete No growth 05/22/21 Urine Culture - Final, Complete NO GROWTH Assessment/Plan Assessment/Plan Admission Dx COVID-19 PNEUMONIA WEAKNESS DEHYDRATION DIABETES MELLITUS CHRONIC URGE INCONTINENCE DEMENTIA HYPERTENSION ATRIAL FIBRILLATION HYPERLIPIDEMIA CORONARY ARTERY DISEASE ANEMIA Assessment and Plan COVID-19 PNEUMONIA WEAKNESS DEHYDRATION DIABETES MELLITUS CHRONIC URGE INCONTINENCE DEMENTIA HYPERTENSION ATRIAL FIBRILLATION HYPERLIPIDEMIA CORONARY ARTERY DISEASE ANEMIA COVID-19 PNEUMONIA - PT WAS NOT IN THE [place]INDOW OF CRITERIA FOR TREATMENT OF COVID WITH REMDESIVIR - WHITE COUNT ELEVATED YESTERDAY AND AGAIN TODAY - WILL START HIM ON AUGMENTIN ORALLY - CHECK UA AND CXR, REPEAT CBC TOMORROW. - STEROID STOPPED DUE TO WHITE COUNT ELEVATION WEAKNESS - - WILL CONTINUE TO REQUIRE THERAPY ON DISCHARGE DEHYDRATION - ON IV FLUIDS - MONITOR LABS ANEMIA -STABLE DIABETES MELLITUS - RESUMED METFORMIN CHECK FSBS AC/HS CHRONIC URGE INCONTINENCE WITH BPH - - RESTARTED FLOMAX, AND ANTICHOLINERGIC DEMENTIA - HOLD HOME MEDS FOR NOW HYPERTENSION - RESUMED CALCIUM CHANNEL YOSVANY - MONITOR PRESSURES ATRIAL FIBRILLATION - RATE CONTROLLED AT THIS TIME, ELEVATED OVERNIGHT, MONITOR TELE - RESUMED CURRENT TREATMENT - PT NOT ON ANTICOAGULATION DUE TO RISK OF BLEEDING WITH FALLS, AND GI BLEEDING CORONARY ARTERY DISEASE - SUPPORTIVE CARE, MEDICAL MANAGEMENT DVT PROPHYLAXIS WITH LOVENOX AND SCD'S GI PROPHYLAXIS WITH PPI WORKING ON PLACEMENT AT [facility] IF THEY WILL TAKE PT Problems: (1) COVID-19 virus infection (2) Weakness (3) Spinal stenosis Admission Dx COVID-19 PNEUMONIA WEAKNESS DEHYDRATION DIABETES MELLITUS CHRONIC URGE INCONTINENCE DEMENTIA HYPERTENSION ATRIAL FIBRILLATION HYPERLIPIDEMIA CORONARY ARTERY DISEASE ANEMIA Clinical Quality Measures Admission Status Admission Dx COVID-19 PNEUMONIA WEAKNESS DEHYDRATION DIABETES MELLITUS CHRONIC URGE INCONTINENCE DEMENTIA HYPERTENSION ATRIAL FIBRILLATION HYPERLIPIDEMIA CORONARY ARTERY DISEASE ANEMIA SHEILA TIAN MD May 28, 2021 08:33
[2021-05-28] MEDS: ASPIRIN E.C. 81 MG (ECOTRIN) TAB PO SCH (09:21)
[2021-05-28] MEDS: PANTOPRAZOLE 40 MG (PROTONIX) TAB PO SCH (09:21)
[2021-05-28] MEDS: metFORMIN XR 500 MG (GLUCOPHAGE XR) TAB PO SCH ×2 (09:21→16:09)
[2021-05-28] MEDS: LACTOBACILLUS ACIDOPHILUS (PROBIOTIC) CAPSULE PO SCH ×3 (09:21→16:09)
[2021-05-28] MEDS: TOLTERODINE LA 2 MG (DETROL LA) CAP PO SCH (09:21)
--- NOTE | 2021-05-28 09:39 | Discharge Inst-Skilled Nursing ---
Discharge Inst-Skilled NF Reconcile Patient Problems Problems Reviewed?: Yes Patient Instructions Patient Problems: POST COVID PNEUMONIA - RESOLVED WEAKNESS DEMENTIA DIABETES MELLITUS AFIB HYPERTENSION Goal: IMPROVED STRENGTH Consult/Follow Up/Orders Skilled NF Admit to: [facility] Certification (SNF) I certify that SNF services are required to be given on an inpatient basis because of the above named patient's need for [facility] care on a continuing basis for the conditions(s) for which he/she was receiving inpatient hospital services prior to his/her transfer to the SNF. [facility] Facility Order: Nursing Services, Automobile Service Writer-Evaluate & Treat, Physical Therapy-Evaluate & Treat, Speech Language-Evaluate & Treat Oxygen Delivery Method: Room Air Discharge Diet: ADA Diet Daily Activity as Tolerated: Yes Resuscitation Status: Do Not Resuscitate New & Resume Previous Orders Sheila Aceves May 28, 2021 09:38 SHEILA ACEVES MD May 28, 2021 09:39
--- NOTE | 2021-05-28 09:45 | Pulmonary Progress Note ---
Subjective Date Seen by a Provider: May 28, 2021 Time Seen by a Provider: 09:36 Subjective/Events-last exam Patient states that he is feeling fair and eager to go home but he is not ready to be discharged to home because of his generalized weakness. He was apparently not a candidate for rehab. work is in progress to place him in correction facility. Otherwise patient denies any new complaints. Vital signs are stable. His is still in the hospital. Sepsis Event Evaluation Height, Weight, BMI Height: 6'0" Weight: 212lbs. 0.0oz. 96.834140bw; 23.95 BMI Method:Stated Exam Exam Patient acknowledged, consented, and participated in this virtual visit which was conducted using real time audio/video Vital Signs Date Time Temp Pulse Resp B/P (MAP) Pulse Ox O2 Delivery O2 Flow Rate FiO2 05/28/21 08:00 36.7 89 18 102/59 (73) 94 Room Air 05/28/21 07:54 95 Room Air 05/27/21 23:00 37.0 52 20 116/65 (82) 96 Room Air 05/27/21 19:50 93 Room Air 05/27/21 18:50 95 Room Air 05/27/21 15:28 91 Room Air 05/27/21 15:24 36.9 69 20 142/67 (92) 94 Room Air 05/27/21 11:17 96 Room Air I & O 05/28/21 07:00 Intake Total 3000 ml Output Total 850 ml Balance 2150 ml Height & Weight Height: 6'0" Weight: 212lbs. 0.0oz. 96.461972le; 23.95 BMI Method:Stated General Appearance: No Apparent Distress, WD/WN, Chronically ill HEENT: PERRL/EOMI, Pharynx Normal Neck: Full Range of Motion, Non Tender, Supple Respiratory: Chest Non Tender, Lungs Clear, Normal Breath Sounds, No Accessory Muscle Use, No Respiratory Distress Cardiovascular: Regular Rate, Rhythm, Normal Peripheral Pulses Capillary Refill: Less Than 3 Seconds Extremity: Normal Capillary Refill, Non Tender, No Calf Tenderness, No Pedal Edema Neurologic/Psychiatric: Alert, Disoriented (ORIENTED TO PERSON, NOT PLACE OR TIME), Other (FLAT AFFECT) Skin: Normal Color, Warm/Dry Lymphatic: No Adenopathy Results Lab reviewed Meds reviewed Assessment/Plan Assessment/Plan 1. Acute Covid viral infection clinically better. 2. History of hypertension 3. History of coronary artery disease status post bypass surgery 4. Peripheral arterial disease 5. Spinal stenosis with the difficulty in ambulation. 6. Leukocytosis probably due to steroids, now off steroids 7. High risk for DVT. on lovenox Recommendations 1. Agree to discontinue steroids. 2. Acetaminophen as needed for pain 3. DVT prophylaxis 4. home when ok with attending physician. Diagnosis/Problems Diagnosis/Problems (1) COVID-19 virus infection Status: Acute (2) Weakness Status: Acute (3) Spinal stenosis Status: Acute MARTINE MERCADO MD May 28, 2021 09:45
[2021-05-28 10:06] VITALS: BP 102/59
[2021-05-28 10:50] LABS: HEMATOCRIT 40 % (40-54); HEMOGLOBIN 13.3 g/dL (13.3-17.7); MEAN CORPUSCULAR HEMOGLOBIN 28 pg (25-34); MEAN CORPUSCULAR HGB CONC 33 g/dL (32-36); MEAN CORPUSCULAR VOLUME 84 fL (80-99); MEAN PLATELET VOLUME 9.5 fL (9.0-12.2); PLATELET COUNT 347 10^3/uL (130-400)
[2021-05-28 11:01] LABS: BUN/CREATININE RATIO 17; CALCIUM 8.2 MG/DL (8.5-10.1); CARBON DIOXIDE 24 MMOL/L (21-32); CHLORIDE 103 MMOL/L (98-107); CREATININE SERUM 1.01 MG/DL (0.60-1.30); GFR ESTIMATED > 60; GLUCOSE 171 MG/DL (70-105); POTASSIUM 3.6 MMOL/L (3.6-5.0); SODIUM 136 MMOL/L (135-145)
[2021-05-28] MEDS: ENOXAPARIN 40 MG/0.4 ML (LOVENOX) SYR SC SCH (13:04)
[2021-05-28] MEDS: AUGMENTIN 875 MG TAB (AMOXICILLIN/CLAVULANATE) PO SCH (14:30)
--- NOTE | 2021-05-28 14:40 | Physical Therapy Daily Note ---
PT Daily Note-Current Subjective Patient agrees to PT. Spouse present. Mental Status Patient Orientation: Confused Transfers SCALE: Activities may be completed with or without assistive devices. 6-Uzzzafpghr-zijnhgs completes the activity by him/herself with no assistance from a helper. 5-Set-up or Clean-up Assistance-helper sets up or cleans up; patient completes activity. [place] assists only prior to or following the activity. 4-Supervision or Touching Assistance-helper provides verbal cues and/or touching/steadying and/or contact guard assistance as patient completes activity. Assistance may be provided throughout the activity or intermittently. 3-Partial/Moderate Assistance-helper does LESS THAN HALF the effort. [place] lifts, holds or supports trunk or limbs, but provides less than half the effort. 2-Substantial/Maximal Assistance-helper does MORE THAN HALF the effort. [place] lifts or holds trunk or limbs and provides more than half the effort. 8-Sjfgamkxj-hemswb does ALL the effort. Patient does none of the effort to complete the activity. Or, the assistance of 2 or more helpers is required for the patient to complete the activity. If activity was not attempted, code reason: 7-Patient Refused. 9-Not Applicable-not attempted and the patient did not perform the activity before the current illness, exacerbation or injury. 10-Not Attempted due to Environmental Limitations-(lack of equipment, weather restraints, etc.). 88-Not Attempted due to Medical Conditions or Safety Concerns. Lying to Sitting/Side of Bed(Q: 2 Sit to Stand (QC): 2 Chair/Vqc-di-Uzota Xfer(QC): 2 severe right lean with sit to stand to FWW and with PT assist (patient unable to correct) Exercises Seated Therapy Exercises: Ankle pumps, Long arc quads Seated Reps: 15 (AAROM) Assessment Patient up in recliner with chair alarm activated. Continues with difficulty with bed mobility and transfers. Spouse reports this happens occasionally at home. PT Metal Template Maker Goals [facility]sp Goals PT Metal Template Maker Goals Time Frame: Jun 06, 2021 Roll Left & Right (QC): 4 Sit to Lying (QC): 4 Lying-Sitting on Side/Bed(QC): 4 Sit to Stand (QC): 4 Chair/Czz-fv-Hyduv Xfer(QC): 4 Toilet Transfer (QC): 4 Does the Patient Walk: Yes Walk 10 feet (QC): 4 Walk 50ft with 2 Turns (QC): 4 PT Plan Treatment/Plan Treatment Plan: Continue Plan of Care Treatment Plan: Bed Mobility, Education, Functional Activity Agustin, Functional Strength, Gait, Safety, Therapeutic Exercise, Transfers Treatment Duration: Jun 06, 2021 Frequency: 6 times per week Estimated Hrs Per Day: .25 hour per day Patient and/or Family Agrees t: Yes Time/GCodes Time In: 1245 Time Out: 1255 Total Billed Treatment Time: 10 Total Billed Treatment 1 visit FA 10 min INO WISE PT May 28, 2021 14:40
--- NOTE | 2021-05-28 15:30 | Diagnostic Imaging Report ---
HISTORY: Leukocytosis, COVID TECHNIQUE: 2 views of the chest COMPARISON: 05/23/2021 FINDINGS: youth nutritional monitor device is noted. Sternotomy wires and post-CABG changes are noted. No focal consolidation is seen. There is no pleural effusion or pneumothorax is seen. The cardiac silhouette is normal in size. IMPRESSION: 1. No acute pulmonary abnormality is seen. Dictated by: Dictated on workstation # [id number]
[2021-05-28 16:06] VITALS: BP 125/76
[2021-05-28] MEDS: TAMSULOSIN 0.4 MG (FLOMAX) CAP PO SCH (16:09)
[2021-05-29 00:15] VITALS: BP 144/67
[2021-05-29 02:09] VITALS: BP 144/67
[2021-05-29] MEDS ORDERED: ALBUTEROL/IPRATROP (COMBIVENT RESPIMAT) 4 GM INHALER IH PRN (02:15)
[2021-05-29 05:56] LABS: BASOPHILS # (AUTO) 0.1 10^3/uL (0.0-0.1); BASOPHILS % (AUTO) 0 % (0-10); EOSINOPHILS # (AUTO) 0.4 10^3/uL (0.0-0.3); EOSINOPHILS % (AUTO) 2 % (0-10); HEMATOCRIT 37 % (40-54); HEMOGLOBIN 12.1 g/dL (13.3-17.7); LYMPHOCYTES # (AUTO) 2.3 10^3/uL (1.0-4.0); LYMPHOCYTES % (AUTO) 12 % (12-44); MEAN CORPUSCULAR HEMOGLOBIN 28 pg (25-34); MEAN CORPUSCULAR HGB CONC 33 g/dL (32-36); MEAN CORPUSCULAR VOLUME 84 fL (80-99); MEAN PLATELET VOLUME 9.9 fL (9.0-12.2); MONOCYTES # (AUTO) 1.4 10^3/uL (0.0-1.0); MONOCYTES % (AUTO) 7 % (0-12); NEUTROPHILS # (AUTO) 13.9 10^3/uL (1.8-7.8); NEUTROPHILS % (AUTO) 74 % (42-75); PLATELET COUNT 339 10^3/uL (130-400); WHITE BLOOD COUNT 18.8 10^3/uL (4.3-11.0)
[2021-05-29] MEDS: inSUlin ASPART (NovoLOG) 1 UNIT/0.01 ML (CHARGE PER UNIT) SC SCH ×4 (06:03→21:22)
[2021-05-29 06:48] LABS: ELLIPT/OVALOCYTES SLIGHT; EOSINOPHILS % (MANUAL) 3 %; LYMPHOCYTES % (MANUAL) 16 %; MICROCYTOSIS SLIGHT; MONOCYTES % (MANUAL) 5 %; NEUTROPHILS % (MANUAL) 76 %
[2021-05-29 07:43] VITALS: BP 132/62
[2021-05-29] MEDS: ASPIRIN E.C. 81 MG (ECOTRIN) TAB PO SCH (09:08)
[2021-05-29] MEDS: metFORMIN XR 500 MG (GLUCOPHAGE XR) TAB PO SCH ×2 (09:08→17:12)
[2021-05-29] MEDS: PANTOPRAZOLE 40 MG (PROTONIX) TAB PO SCH (09:08)
[2021-05-29] MEDS: AUGMENTIN 875 MG TAB (AMOXICILLIN/CLAVULANATE) PO SCH ×2 (09:08→17:12)
[2021-05-29] MEDS: LACTOBACILLUS ACIDOPHILUS (PROBIOTIC) CAPSULE PO SCH ×3 (09:08→17:13)
[2021-05-29] MEDS: TOLTERODINE LA 2 MG (DETROL LA) CAP PO SCH (09:08)
--- NOTE | 2021-05-29 09:25 | Pulmonary Progress Note ---
Subjective Date Seen by a Provider: May 29, 2021 Time Seen by a Provider: 08:30 Subjective/Events-last exam Patient acknowledged, consented, and participated in this virtual visit which was conducted using real time audio/video. Thank you for asking us to see this patient for respiratory insufficiency and distress, now much improved. HPC: Recent events: Plan for home today per RN, Concerned re 's discharge also. PE: VSS HR 85 nsr BP 130/60 RR 18 O2 sat 94 on RA. HEENT: No obvious masses, adenopathy or JVD. Chest: clear to auscultation. CV: RRR S1 S2 No murmur or added sounds. Abd: Non-tender. Bowel sounds . : Unremarkable. CLINICAL RESEARCH SCIENTIST/psychiatric: Alert and oriented, grossly intact. No obvious focal findings. Extremities: No edema. Capillary refill < 3 seconds. Skin: unremarkable. Results: Elevated WCC 14.9. A/P: Available chart/ vitals / labs / Images reviewed Video assessment done using teleICU camera, rest of exam as per RN Respiratory: Continue present management with discharge pending. . Discussed with RN. Asked RN to reach out to eICU if any questions or concerns later. Time spent with patient/family/coordination of care with other health professionals (mins): 15 Sepsis Event Evaluation Sepsis Stage: Ruled Out Height, Weight, BMI Height: 6'0" Weight: 212lbs. 0.0oz. 96.354046jp; 23.95 BMI Method:Stated Focused Exam Sepsis Stage: Ruled Out Exam Exam Patient acknowledged, consented, and participated in this virtual visit which was conducted using real time audio/video Vital Signs Date Time Temp Pulse Resp B/P (MAP) Pulse Ox O2 Delivery O2 Flow Rate FiO2 05/29/21 07:43 36.6 85 18 132/62 (85) 94 Room Air 05/29/21 02:09 36.4 71 93 21 05/29/21 00:15 36.4 71 22 144/67 (92) 93 Room Air 05/28/21 20:51 95 Room Air 05/28/21 19:35 Room Air 05/28/21 16:06 36.6 69 18 125/76 (92) 95 Room Air 05/28/21 11:39 93 Room Air 05/28/21 10:06 36.7 89 94 21 I & O 05/29/21 07:00 Intake Total 2980 ml Balance 2980 ml Height & Weight Height: 6'0" Weight: 212lbs. 0.0oz. 96.352988po; 23.95 BMI Method:Stated General Appearance: No Apparent Distress, WD/WN, Chronically ill HEENT: PERRL/EOMI, Pharynx Normal Neck: Full Range of Motion, Non Tender, Supple Respiratory: Chest Non Tender, Lungs Clear, Normal Breath Sounds, No Accessory Muscle Use, No Respiratory Distress Cardiovascular: Regular Rate, Rhythm, Normal Peripheral Pulses Capillary Refill: Less Than 3 Seconds Extremity: Normal Capillary Refill, Non Tender, No Calf Tenderness, No Pedal Edema Neurologic/Psychiatric: Alert, Disoriented (ORIENTED TO PERSON, NOT PLACE OR TIME), Other (FLAT AFFECT) Skin: Normal Color, Warm/Dry Lymphatic: No Adenopathy Results Lab Laboratory Tests 05/28/21 10:35 05/29/21 05:23 Assessment/Plan Assessment/Plan see free text Time spent on discussion(mins): 0 Diagnosis/Problems Diagnosis/Problems (1) COVID-19 virus infection Status: Acute JADE RYAN MD May 29, 2021 09:25
--- NOTE | 2021-05-29 09:58 | Physical Therapy Daily Note ---
PT Daily Note-Current Subjective Patient is in bed. Agrees to PT. Mental Status Patient Orientation: Confused Transfers SCALE: Activities may be completed with or without assistive devices. 2-Ulcyrkwqdy-tarvkbw completes the activity by him/herself with no assistance from a helper. 5-Set-up or Clean-up Assistance-helper sets up or cleans up; patient completes activity. [place] assists only prior to or following the activity. 4-Supervision or Touching Assistance-helper provides verbal cues and/or touching/steadying and/or contact guard assistance as patient completes activity. Assistance may be provided throughout the activity or intermittently. 3-Partial/Moderate Assistance-helper does LESS THAN HALF the effort. [place] lifts, holds or supports trunk or limbs, but provides less than half the effort. 2-Substantial/Maximal Assistance-helper does MORE THAN HALF the effort. [place] lifts or holds trunk or limbs and provides more than half the effort. 0-Dbvoiuruk-xqydji does ALL the effort. Patient does none of the effort to com plete the activity. Or, the assistance of 2 or more helpers is required for the patient to complete the activity. If activity was not attempted, code reason: 7-Patient Refused. 9-Not Applicable-not attempted and the patient did not perform the activity before the current illness, exacerbation or injury. 10-Not Attempted due to Environmental Limitations-(lack of equipment, weather restraints, etc.). 88-Not Attempted due to Medical Conditions or Safety Concerns. Lying to Sitting/Side of Bed(Q: 1 Sit to Stand (QC): 1 Chair/Nah-zb-Skiib Xfer(QC): 1 severe lean to right with inability to correct. PT dependent with all mobility. Sit to stand x 4 sets to FWW with assist of 2 Gait Training Does the Patient Walk?: No and Walking Goal IS indicated Exercises Seated Therapy Exercises: Ankle pumps, Long arc quads Seated Reps: 15 (AAROM) Assessment breakfast in situ; impaired mobility; poor balance PT Mcfp Goals Group Leader Semiconductor Processing Goals PT Group Leader Semiconductor Processing Goals Time Frame: Jun 06, 2021 Roll Left & Right (QC): 4 Sit to Lying (QC): 4 Lying-Sitting on Side/Bed(QC): 4 Sit to Stand (QC): 4 Chair/Rvn-zv-Jhpzg Xfer(QC): 4 Toilet Transfer (QC): 4 Does the Patient Walk: Yes Walk 10 feet (QC): 4 Walk 50ft with 2 Turns (QC): 4 PT Plan Treatment/Plan Treatment Plan: Continue Plan of Care Treatment Plan: Bed Mobility, Education, Functional Activity Agustin, Functional Strength, Gait, Safety, Therapeutic Exercise, Transfers Treatment Duration: Jun 06, 2021 Frequency: 6 times per week Estimated Hrs Per Day: .25 hour per day Patient and/or Family Agrees t: Yes Time/GCodes Time In: 848 Time Out: 905 Total Billed Treatment Time: 17 Total Billed Treatment 1 visit FA 17 min INO WISE PT May 29, 2021 09:57
[2021-05-29] MEDS: ENOXAPARIN 40 MG/0.4 ML (LOVENOX) SYR SC SCH (12:15)
--- NOTE | 2021-05-29 13:44 | Progress Note ---
Subjective Date Seen by a Provider: May 29, 2021 Time Seen by a Provider: 09:15 Subjective/Events-last exam Fwup COVID 19 pneumonia, DMII, Dehydration, Chronic Atrial Fibrillation, Dementia, Leukocytosis, Anemia. Sitting up in chair. No complaints. Wants to go home. Objective Exam Vital Signs Date Time Temp Pulse Resp B/P (MAP) Pulse Ox O2 Delivery O2 Flow Rate FiO2 05/29/21 08:00 94 Room Air 05/29/21 07:43 36.6 85 18 132/62 (85) 94 Room Air 05/29/21 02:09 36.4 71 93 21 05/29/21 00:15 36.4 71 22 144/67 (92) 93 Room Air 05/28/21 20:51 95 Room Air 05/28/21 19:35 Room Air 05/28/21 16:06 36.6 69 18 125/76 (92) 95 Room Air I & O 05/29/21 07:00 Intake Total 2980 ml Balance 2980 ml Capillary Refill : Less Than 3 Seconds General Appearance: No Apparent Distress Respiratory: Lungs Clear, Decreased Breath Sounds Cardiovascular: Systolic Murmur, Gallop/S4, Irregularly Irregular Gastrointestinal: normal bowel sounds, non tender, soft Extremity: Non Tender, No Calf Tenderness, No Pedal Edema Neurologic/Psychiatric: Alert Results Lab Laboratory Tests 05/28/21 15:37: Glucometer 241H 05/28/21 20:13: Glucometer 240H 05/29/21 05:23: White Blood Count 18.8H, Red Blood Count 4.36, Hemoglobin 12.1L, Hematocrit 37L, Mean Corpuscular Volume 84, Mean Corpuscular Hemoglobin 28, Mean Corpuscular Hemoglobin Concent 33, Red Cell Distribution Width 15.1H, Platelet Count 339, Mean Platelet Volume 9.9, Immature Granulocyte % (Auto) 4, Neutrophils (%) (Auto) 74, Lymphocytes (%) (Auto) 12, Monocytes (%) (Auto) 7, Eosinophils (%) (Auto) 2, Basophils (%) (Auto) 0, Neutrophils # (Auto) 13.9H, Lymphocytes # (Auto) 2.3, Monocytes # (Auto) 1.4H, Eosinophils # (Auto) 0.4H, Basophils # (Auto) 0.1, Immature Granulocyte # (Auto) 0.8H, Neutrophils % (Manual) 76, Lymphocytes % (Manual) 16, Monocytes % (Manual) 5, Eosinophils % (Manual) 3, Microcytosis SLIGHT, Elliptocytes SLIGHT, D-Dimer 1.07H 05/29/21 06:02: Glucometer 86 05/29/21 10:36: Glucometer 232H Microbiology 05/22/21 Blood Culture - Final, Complete No growth 05/22/21 Urine Culture - Final, Complete NO GROWTH Assessment/Plan Assessment/Plan Assess & Plan/Chief Complaint 1. Covid 19 Pneumonia--started on Augmentin, Steroids DCed 2. Chronic Atrial Fibrillation--back on home meds but no anticoagulants due to bleeding risk 3. Hypertension--stable 4. Dehydration--improved 5. Diabetes mellitus II--on metformin and accuchecks 6. Anemia--stable 7. Leukocytosis--steroids DCed and augmentin started--WBC down to 18,000 today, will trend 8. Dementia and Weakness--plan is for DC to [place] on Tuesday BOB KOWALSKI DO May 29, 2021 13:44
[2021-05-29 15:53] VITALS: BP 152/75
[2021-05-29] MEDS: TAMSULOSIN 0.4 MG (FLOMAX) CAP PO SCH (17:12)
[2021-05-30] VITALS: BP 131/72
[2021-05-30] MEDS: inSUlin ASPART (NovoLOG) 1 UNIT/0.01 ML (CHARGE PER UNIT) SC SCH ×4 (05:48→21:02)
[2021-05-30 07:40] VITALS: BP 181/85
[2021-05-30] MEDS: AUGMENTIN 875 MG TAB (AMOXICILLIN/CLAVULANATE) PO SCH ×2 (08:06→17:05)
[2021-05-30] MEDS: LACTOBACILLUS ACIDOPHILUS (PROBIOTIC) CAPSULE PO SCH ×3 (08:06→17:05)
[2021-05-30] MEDS: PANTOPRAZOLE 40 MG (PROTONIX) TAB PO SCH (08:06)
[2021-05-30] MEDS: metFORMIN XR 500 MG (GLUCOPHAGE XR) TAB PO SCH ×2 (08:06→17:05)
[2021-05-30] MEDS: TOLTERODINE LA 2 MG (DETROL LA) CAP PO SCH (08:06)
[2021-05-30] MEDS: ASPIRIN E.C. 81 MG (ECOTRIN) TAB PO SCH (08:06)
--- NOTE | 2021-05-30 08:59 | Physical Therapy Daily Note ---
PT Daily Note-Current Subjective Pt in bed upon arrival to room, agreeable to PT services. Appearance Following session, pt up in chair with chair alarm activated and breakfast in situ. Call light and tray within reach. Mental Status Patient Orientation: Confused Transfers SCALE: Activities may be completed with or without assistive devices. 7-Hxsfrvhque-jhhseto completes the activity by him/herself with no assistance from a helper. 5-Set-up or Clean-up Assistance-helper sets up or cleans up; patient completes a ctivity. [place] assists only prior to or following the activity. 4-Supervision or Touching Assistance-helper provides verbal cues and/or touching/steadying and/or contact guard assistance as patient completes activity. Assistance may be provided throughout the activity or intermittently. 3-Partial/Moderate Assistance-helper does LESS THAN HALF the effort. [place] lifts, holds or supports trunk or limbs, but provides less than half the effort. 2-Substantial/Maximal Assistance-helper does MORE THAN HALF the effort. [place] lifts or holds trunk or limbs and provides more than half the effort. 2-Inacjteoj-qvoomb does ALL the effort. Patient does none of the effort to complete the activity. Or, the assistance of 2 or more helpers is required for the patient to complete the activity. If activity was not attempted, code reason: 7-Patient Refused. 9-Not Applicable-not attempted and the patient did not perform the activity before the current illness, exacerbation or injury. 10-Not Attempted due to Environmental Limitations-(lack of equipment, weather restraints, etc.). 88-Not Attempted due to Medical Conditions or Safety Concerns. Roll Left & Right (QC): 3 Lying to Sitting/Side of Bed(Q: 3 Sit to Stand (QC): 2 Chair/Uei-ki-Zezax Xfer(QC): 2 Pt with improved bed mobility this date, only requiring verbal cueing for sequencing. Pt leans severe to the right side with sitting and standing. Able to take small, shuffling steps to chair this date. Able to take larger steps with VCS and manual assistance to lean to the L. Assessment Current Status: Fair Progress Pt with improved bed mobility and able to initiate taking small steps to chair this date during transfer. Will continue to progress mobility and strength, as pt is able. PT Nursing Home Goals Nursing Home Goals PT Aqua Ammonia Operator Goals Time Frame: Jun 06, 2021 Roll Left & Right (QC): 4 Sit to Lying (QC): 4 Lying-Sitting on Side/Bed(QC): 4 Sit to Stand (QC): 4 Chair/Qnn-zg-Pqckv Xfer(QC): 4 Toilet Transfer (QC): 4 Does the Patient Walk: Yes Walk 10 feet (QC): 4 Walk 50ft with 2 Turns (QC): 4 PT Plan Problem List Problem List: Activity Tolerance, Functional Strength, Safety, Balance, Gait, Transfer, Bed Mobility, ROM Treatment/Plan Treatment Plan: Continue Plan of Care Treatment Plan: Bed Mobility, Education, Functional Activity Agustin, Functional Strength, Gait, Safety, Therapeutic Exercise, Transfers Treatment Duration: Jun 06, 2021 Frequency: 6 times per week Estimated Hrs Per Day: .25 hour per day Patient and/or Family Agrees t: Yes Time/GCodes Time In: 820 Time Out: 844 Total Billed Treatment 1 visit FA (24') HUAN WAN PT May 30, 2021 08:59
[2021-05-30] MEDS: ENOXAPARIN 40 MG/0.4 ML (LOVENOX) SYR SC SCH (13:15)
[2021-05-30 15:55] VITALS: BP 128/71
[2021-05-30] MEDS: TAMSULOSIN 0.4 MG (FLOMAX) CAP PO SCH (17:05)
[2021-05-30 23:34] VITALS: BP 158/69
[2021-05-31] MEDS: inSUlin ASPART (NovoLOG) 1 UNIT/0.01 ML (CHARGE PER UNIT) SC SCH ×4 (06:04→21:04)
[2021-05-31 07:18] VITALS: BP 164/74
[2021-05-31 07:30] LABS: BILIRUBIN,URINE NEGATIVE (NEGATIVE); CLARITY,URINE CLEAR; COLOR,URINE YELLOW; GLUCOSE, URINE (UA) NEGATIVE (NEGATIVE); KETONES,URINE NEGATIVE (NEGATIVE); LEUKOCYTE ESTERASE ,URINE 1+ (NEGATIVE); NITRITE,URINE NEGATIVE (NEGATIVE); PH,URINE 6.5 (5-9); PROTEIN,URINE NEGATIVE (NEGATIVE)
[2021-05-31 07:41] LABS: BACTERIA,URINE FEW /HPF; SQUAMOUS EPITHELIAL CELL,UR 0-2 /HPF
[2021-05-31] MEDS: LACTOBACILLUS ACIDOPHILUS (PROBIOTIC) CAPSULE PO SCH ×3 (08:43→17:20)
[2021-05-31] MEDS: metFORMIN XR 500 MG (GLUCOPHAGE XR) TAB PO SCH ×2 (08:43→17:19)
[2021-05-31] MEDS: AUGMENTIN 875 MG TAB (AMOXICILLIN/CLAVULANATE) PO SCH ×2 (08:43→17:19)
[2021-05-31] MEDS: PANTOPRAZOLE 40 MG (PROTONIX) TAB PO SCH (08:43)
[2021-05-31] MEDS: TOLTERODINE LA 2 MG (DETROL LA) CAP PO SCH (08:43)
[2021-05-31] MEDS: ASPIRIN E.C. 81 MG (ECOTRIN) TAB PO SCH (08:43)
[2021-05-31] MEDS: ENOXAPARIN 40 MG/0.4 ML (LOVENOX) SYR SC SCH (12:59)
--- NOTE | 2021-05-31 14:44 | Progress Note ---
Subjective HPI/CC On Admission Date Seen by Provider: May 31, 2021 Time Seen by Provider: 14:43 Subjective/Events-last exam Doing pretty well. Not walking well yet. No complaints. Would like to go home. Objective Exam Vital Signs Vital Signs Date Time Temp Pulse Resp B/P (MAP) Pulse Ox O2 Delivery O2 Flow Rate FiO2 05/31/21 08:00 Room Air 05/31/21 07:18 36.6 75 20 164/74 (104) 97 05/29/21 02:09 21 Capillary Refill : Less Than 3 Seconds General Appearance: No Apparent Distress, WD/WN Respiratory: Chest Non Tender, Lungs Clear, Decreased Breath Sounds Cardiovascular: Regular Rate, Rhythm, No Edema Results/Procedures Lab Patient resulted labs reviewed. Assessment/Plan Assessment and Plan Assess & Plan/Chief Complaint 1. Covid 19 Pneumonia--started on Augmentin, Steroids DCed 2. Chronic Atrial Fibrillation--back on home meds but no anticoagulants due to bleeding risk 3. Hypertension--stable 4. Dehydration--improved 5. Diabetes mellitus II--on metformin and accuchecks 6. Anemia--stable 7. Leukocytosis--steroids DCed and augmentin started--WBC down to 18,000 today, will trend 8. Dementia and Weakness--plan is for DC to [place] on Tuesday LISA LAZCANO MD May 31, 2021 14:44
[2021-05-31 16:54] VITALS: BP 149/77
[2021-05-31] MEDS: TAMSULOSIN 0.4 MG (FLOMAX) CAP PO SCH (17:19)
[2021-05-31 23:33] VITALS: BP 162/82
[2021-06-01] MEDS: inSUlin ASPART (NovoLOG) 1 UNIT/0.01 ML (CHARGE PER UNIT) SC SCH ×4 (06:02→21:32)
[2021-06-01 06:20] LABS: BASOPHILS # (AUTO) 0.1 10^3/uL (0.0-0.1); BASOPHILS % (AUTO) 1 % (0-10); EOSINOPHILS # (AUTO) 0.3 10^3/uL (0.0-0.3); EOSINOPHILS % (AUTO) 2 % (0-10); HEMATOCRIT 37 % (40-54); HEMOGLOBIN 11.9 g/dL (13.3-17.7); LYMPHOCYTES # (AUTO) 2.1 10^3/uL (1.0-4.0); LYMPHOCYTES % (AUTO) 14 % (12-44); MEAN CORPUSCULAR HEMOGLOBIN 27 pg (25-34); MEAN CORPUSCULAR HGB CONC 32 g/dL (32-36); MEAN CORPUSCULAR VOLUME 84 fL (80-99); MEAN PLATELET VOLUME 9.8 fL (9.0-12.2); MONOCYTES # (AUTO) 1.3 10^3/uL (0.0-1.0); MONOCYTES % (AUTO) 8 % (0-12); NEUTROPHILS # (AUTO) 11.2 10^3/uL (1.8-7.8); NEUTROPHILS % (AUTO) 72 % (42-75); PLATELET COUNT 399 10^3/uL (130-400); WHITE BLOOD COUNT 15.5 10^3/uL (4.3-11.0)
[2021-06-01 06:38] LABS: ALANINE AMINOTRANSFERASE 32 U/L (0-55); ALBUMIN 2.9 GM/DL (3.2-4.5); ALKALINE PHOSPHATASE 69 U/L (40-136); BILIRUBIN,TOTAL 0.4 MG/DL (0.1-1.0); BUN/CREATININE RATIO 13; CALCIUM 8.1 MG/DL (8.5-10.1); CARBON DIOXIDE 25 MMOL/L (21-32); CHLORIDE 105 MMOL/L (98-107); CREATININE SERUM 0.92 MG/DL (0.60-1.30); GFR ESTIMATED > 60; GLUCOSE 174 MG/DL (70-105); SODIUM 138 MMOL/L (135-145); TOTAL PROTEIN 5.9 GM/DL (6.4-8.2)
[2021-06-01 08:15] VITALS: BP 136/68
[2021-06-01] MEDS: TOLTERODINE LA 2 MG (DETROL LA) CAP PO SCH (08:26)
[2021-06-01] MEDS: ASPIRIN E.C. 81 MG (ECOTRIN) TAB PO SCH (08:26)
[2021-06-01] MEDS: AUGMENTIN 875 MG TAB (AMOXICILLIN/CLAVULANATE) PO SCH ×2 (08:26→16:32)
[2021-06-01] MEDS: metFORMIN XR 500 MG (GLUCOPHAGE XR) TAB PO SCH ×2 (08:26→16:32)
[2021-06-01] MEDS: LACTOBACILLUS ACIDOPHILUS (PROBIOTIC) CAPSULE PO SCH ×3 (08:26→16:32)
[2021-06-01] MEDS: PANTOPRAZOLE 40 MG (PROTONIX) TAB PO SCH (08:26)
[2021-06-01] MEDS: ENOXAPARIN 40 MG/0.4 ML (LOVENOX) SYR SC SCH (13:16)
--- NOTE | 2021-06-01 15:24 | Physical Therapy Daily Note ---
PT Daily Note-Current Subjective Patient in recliner pre tx, agrees to PT, has no complaints of pain. Appearance Patient in recliner post tx with nurse call, phone, tray, all needs met, legs elevated. Mental Status Patient Orientation: Person, Place, Situation Transfers SCALE: Activities may be completed with or without assistive devices. 2-Makgwlelaj-gvqnmzr completes the activity by him/herself with no assistance from a helper. 5-Set-up or Clean-up Assistance-helper sets up or cleans up; patient completes activity. [place] assists only prior to or following the activity. 4-Supervision or Touching Assistance-helper provides verbal cues and/or touching/steadying and/or contact guard assistance as patient completes activity. Assistance may be provided throughout the activity or intermittently. 3-Partial/Moderate Assistance-helper does LESS THAN HALF the effort. [place] lifts, holds or supports trunk or limbs, but provides less than half the effort. 2-Substantial/Maximal Assistance-helper does MORE THAN HALF the effort. [place] lifts or holds trunk or limbs and provides more than half the effort. 3-Xrjmtccat-zbidbj does ALL the effort. Patient does none of the effort to complete the activity. Or, the assistance of 2 or more helpers is required for the patient to complete the activity. If activity was not attempted, code reason: 7-Patient Refused. 9-Not Applicable-not attempted and the patient did not perform the activity before the current illness, exacerbation or injury. 10-Not Attempted due to Environmental Limitations-(lack of equipment, weather restraints, etc.). 88-Not Attempted due to Medical Conditions or Safety Concerns. Sit to Stand (QC): 2 Gait Training Distance: 5' Gait Assistive Device: FWW Patient performed sit to stand with mod/mas assist and is very retropulsive with standing, needs constant assist to correct this, he was able to ambulate about 5' forward (shuffling gait) before needing to sit down. Exercises Seated Therapy Exercises: Ankle pumps, Long arc quads Seated Reps: 20 Treatments ambulation, LE exercise Assessment Current Status: Fair Progress slightly improved ambulation PT Supervisor [facility] Goals Assisted Goals PT Assisted Goals Time Frame: Jun 06, 2021 Roll Left & Right (QC): 4 Sit to Lying (QC): 4 Lying-Sitting on Side/Bed(QC): 4 Sit to Stand (QC): 4 Chair/Bos-sn-Kbbmj Xfer(QC): 4 Toilet Transfer (QC): 4 Does the Patient Walk: Yes Walk 10 feet (QC): 4 Walk 50ft with 2 Turns (QC): 4 PT Plan Problem List Problem List: Activity Tolerance, Functional Strength, Safety, Balance, Gait, Transfer, Bed Mobility, ROM Treatment/Plan Treatment Plan: Continue Plan of Care Treatment Plan: Bed Mobility, Education, Functional Activity Agustin, Functional Strength, Gait, Safety, Therapeutic Exercise, Transfers Treatment Duration: Jun 06, 2021 Frequency: 6 times per week Estimated Hrs Per Day: .25 hour per day Patient and/or Family Agrees t: Yes Safety Risks/Education Patient Education: Gait Training, Transfer Techniques, Correct Positioning, Safety Issues Teaching Recipient: Patient Teaching Methods: Demonstration, Discussion Response to Teaching: Reinforcement Needed Time/GCodes Time In: 1510 Time Out: 1521 Total Billed Treatment Time: 11 Total Billed Treatment 1 visit FA 11' HARJINDER GAY PT Jun 01, 2021 15:24
[2021-06-01 15:42] VITALS: BP 138/64
[2021-06-01] MEDS: TAMSULOSIN 0.4 MG (FLOMAX) CAP PO SCH (16:32)
--- NOTE | 2021-06-01 17:21 | Progress Note ---
Subjective Date Seen by a Provider: Jun 01, 2021 Time Seen by a Provider: 08:50 Subjective/Events-last exam Fwup COVID 19 pneumonia, DMII, Dehydration, Chronic Atrial Fibrillation, Dementia, Leukocytosis, Anemia. Sitting up in chair. No complaints. Wants to go home. Objective Exam Vital Signs Date Time Temp Pulse Resp B/P (MAP) Pulse Ox O2 Delivery O2 Flow Rate FiO2 06/01/21 15:42 36.4 77 20 138/64 (88) 96 Room Air 06/01/21 13:49 0.00 06/01/21 08:15 37.0 81 18 136/68 (90) 93 Room Air 06/01/21 08:00 Room Air 05/31/21 23:33 37.0 78 18 162/82 (108) 96 Room Air 05/31/21 20:03 Room Air I & O 06/01/21 07:00 Intake Total 1790 ml Output Total 575 ml Balance 1215 ml Capillary Refill : Less Than 3 Seconds General Appearance: No Apparent Distress Respiratory: Lungs Clear Cardiovascular: Regular Rate, Rhythm Extremity: Non Tender, No Calf Tenderness, No Pedal Edema Neurologic/Psychiatric: Alert, Disoriented Results Lab Laboratory Tests 05/31/21 20:55: Glucometer 184H 06/01/21 05:30: White Blood Count 15.5H, Red Blood Count 4.36, Hemoglobin 11.9L, Hematocrit 37L, Mean Corpuscular Volume 84, Mean Corpuscular Hemoglobin 27, Mean Corpuscular Hemoglobin Concent 32, Red Cell Distribution Width 14.9H, Platelet Count 399, Mean Platelet Volume 9.8, Immature Granulocyte % (Auto) 4, Neutrophils (%) (Auto) 72, Lymphocytes (%) (Auto) 14, Monocytes (%) (Auto) 8, Eosinophils (%) (Auto) 2, Basophils (%) (Auto) 1, Neutrophils # (Auto) 11.2H, Lymphocytes # (Auto) 2.1, Monocytes # (Auto) 1.3H, Eosinophils # (Auto) 0.3, Basophils # (Auto) 0.1, Immature Granulocyte # (Auto) 0.6H, Sodium Level 138, Potassium Level 4.0, Chloride Level 105, Carbon Dioxide Level 25, Anion Gap 8, Blood Urea Nitrogen 12, Creatinine 0.92, Estimat Glomerular Filtration Rate > 60, BUN/Creatinine Ratio 13, Glucose Level 174H, Calcium Level 8.1L, Corrected Calcium 9.0, Total Bilirubin 0.4, Aspartate Amino Transf (AST/SGOT) 19, Alanine Aminotransferase (ALT/SGPT) 32, Alkaline Phosphatase 69, Total Protein 5.9L, Albumin 2.9L 06/01/21 06:02: Glucometer 174H 06/01/21 11:20: Glucometer 186H 06/01/21 15:46: Glucometer 291H Microbiology 05/31/21 Urine Culture - Preliminary, Resulted Pseudomonas aeruginosa 05/22/21 Blood Culture - Final, Complete No growth Assessment/Plan Assessment/Plan Assess & Plan/Chief Complaint 1. Covid 19 Pneumonia--resolved, DC to SNF today 2. Chronic Atrial Fibrillation--back on home meds but no anticoagulants due to bleeding risk 3. Hypertension--stable 4. Dehydration--improved 5. Diabetes mellitus II--on metformin and accuchecks 6. Anemia--stable 7. Leukocytosis--improved 8. Dementia and Weakness--plan is for [place] BOB KOWALSKI DO Jun 01, 2021 17:21
[2021-06-02 00:20] VITALS: BP 168/75
[2021-06-02] MEDS: inSUlin ASPART (NovoLOG) 1 UNIT/0.01 ML (CHARGE PER UNIT) SC SCH (05:36)
[2021-06-02 07:53] VITALS: BP 164/71
[2021-06-02] MEDS: AUGMENTIN 875 MG TAB (AMOXICILLIN/CLAVULANATE) PO SCH (08:43)
[2021-06-02] MEDS: PANTOPRAZOLE 40 MG (PROTONIX) TAB PO SCH (08:43)
[2021-06-02] MEDS: metFORMIN XR 500 MG (GLUCOPHAGE XR) TAB PO SCH (08:43)
[2021-06-02] MEDS: TOLTERODINE LA 2 MG (DETROL LA) CAP PO SCH (08:43)
[2021-06-02] MEDS: ASPIRIN E.C. 81 MG (ECOTRIN) TAB PO SCH (08:43)
[2021-06-02] MEDS: LACTOBACILLUS ACIDOPHILUS (PROBIOTIC) CAPSULE PO SCH (08:43)
[2021-06-02 11:18] VITALS: BP 164/71
== END 2021-06-02 11:10 | DRG 177 ==
LOC: ER 08:53 → 4TH 10:44 → EDPENDDISDT 06-01 11:00
PROVIDERS: ADMIT Family Medicine; ATTEND Family Medicine
DX: U07.1 COVID-19 (principal); J12.82 Pneumonia due to coronavirus disease 2019; I48.20 Chronic atrial fibrillation, unspecified; E86.0 Dehydration; F03.90 Unspecified dementia, unspecified severity, without behavioral disturbance, psychotic disturbance, mood disturbance, and anxiety; I25.10 Atherosclerotic heart disease of native coronary artery without angina pectoris; E78.00 Pure hypercholesterolemia, unspecified; E78.5 Hyperlipidemia, unspecified; Z66 Do not resuscitate; I10 Essential (primary) hypertension; N40.1 Benign prostatic hyperplasia with lower urinary tract symptoms; N39.41 Urge incontinence; D64.9 Anemia, unspecified; I73.9 Peripheral vascular disease, unspecified; M48.00 Spinal stenosis, site unspecified; E11.9 Type 2 diabetes mellitus without complications; Z79.4 Long term (current) use of insulin; Z79.01 Long term (current) use of anticoagulants; Z87.891 Personal history of nicotine dependence; Z79.82 Long term (current) use of aspirin; Z82.49 Family history of ischemic heart disease and other diseases of the circulatory system; Z83.3 Family history of diabetes mellitus
CPT/HCPCS: 36415; 51702; 71045; 71046; 80048; 80053; 81000; 82947; 83605; 84145; 85007; 85025; 85027; 85379; 85610; 85730; 86141; 87040; 87077; 87088; 87186; 87636; 94640; 94664; 94760

== ENCOUNTER 2021-09-06 12:30 | Inpatient (IN) | payer MEDICARE, OTHER ==
[~2021-09-06] VITALS: Ht 182 cm; Wt 91.0 kg
[~2021-09-06 12:30] MED LIST changes: +AMOX1TAB11 PO; +ASCO-262 PO; +ASPI-1238 PO; +C,E,1CAP2 PO; +CHOL20002 PO; +CLIN-144 PO; -CLIN300C12 PO; +FURO20TA4 PO; -MAGN400T8 PO; +MGX400T PO; +TMSL.4C PO; +TOLT2TAB19 PO; +TRAM50TA3 PO; +ZINC50TA58 PO
[2021-09-06 12:50] LABS: BASOPHILS # (AUTO) 0.1 10^3/uL (0.0-0.1); BASOPHILS % (AUTO) 1 % (0-10); EOSINOPHILS # (AUTO) 0.2 10^3/uL (0.0-0.3); EOSINOPHILS % (AUTO) 1 % (0-10); HEMATOCRIT 39 % (40-54); HEMOGLOBIN 12.6 g/dL (13.3-17.7); LYMPHOCYTES # (AUTO) 2.4 10^3/uL (1.0-4.0); LYMPHOCYTES % (AUTO) 17 % (12-44); MEAN CORPUSCULAR HEMOGLOBIN 28 pg (25-34); MEAN CORPUSCULAR HGB CONC 33 g/dL (32-36); MEAN CORPUSCULAR VOLUME 86 fL (80-99); MEAN PLATELET VOLUME 9.9 fL (9.0-12.2); MONOCYTES # (AUTO) 1.1 10^3/uL (0.0-1.0); MONOCYTES % (AUTO) 8 % (0-12); NEUTROPHILS # (AUTO) 10.6 10^3/uL (1.8-7.8); NEUTROPHILS % (AUTO) 73 % (42-75); PLATELET COUNT 355 10^3/uL (130-400); WHITE BLOOD COUNT 14.5 10^3/uL (4.3-11.0)
[2021-09-06 12:59] LABS: ALBUMIN 2.9 GM/DL (3.2-4.5); POTASSIUM 3.7 MMOL/L (3.6-5.0)
[2021-09-06 13:01] LABS: CALCIUM 7.7 MG/DL (8.5-10.1)
[2021-09-06 13:02] LABS: TOTAL PROTEIN 5.4 GM/DL (6.4-8.2)
[2021-09-06 13:04] LABS: BILIRUBIN,TOTAL 0.3 MG/DL (0.1-1.0)
[2021-09-06 13:06] LABS: CREATININE SERUM 0.91 MG/DL (0.60-1.30)
[2021-09-06 13:08] LABS: MAGNESIUM 1.5 MG/DL (1.6-2.4)
[2021-09-06 13:11] LABS: ANISOCYTOSIS SLIGHT; EOSINOPHILS % (MANUAL) 1 %; LYMPHOCYTES % (MANUAL) 18 %; MONOCYTES % (MANUAL) 6 %; NEUTROPHILS % (MANUAL) 75 %
[2021-09-06] MEDS ORDERED: MAGNESIUM 1 GM/100 ML IVPB 100 ML IV ONE (13:30)
[2021-09-06] MEDS ORDERED: LACTATED RINGERS 1,000 ML IV ONE ×2 (14:00→18:54)
[2021-09-06 15:36] LABS: BILIRUBIN,URINE NEGATIVE (NEGATIVE); CLARITY,URINE CLEAR; COLOR,URINE DARK YELLOW; GLUCOSE, URINE (UA) NEGATIVE (NEGATIVE); KETONES,URINE NEGATIVE (NEGATIVE); LEUKOCYTE ESTERASE ,URINE NEGATIVE (NEGATIVE); NITRITE,URINE NEGATIVE (NEGATIVE); PROTEIN,URINE NEGATIVE (NEGATIVE)
[2021-09-06 15:43] LABS: BACTERIA,URINE NEGATIVE /HPF; RBC,URINE 0-2 /HPF
--- NOTE | 2021-09-06 17:36 | ED General ---
General Chief Complaint: Neurological Problems Stated Complaint: WEAKNESS Nursing Triage Note: PT TO ED PER EMS W/ C/O WEAKNESS ONSET YESTERDAY, WORSE TODAY. REPORTS PT DID HAVE DIARRHEA YESTERDAY BUT DENIES C/O TODAY. NO OTHER C/O VOICED. Source of Information: Patient, EMS, Family Exam Limitations: No Limitations History of Present Illness Date Seen by Provider: Sep 06, 2021 Time Seen by Provider: 12:31 Initial Comments This 81-year-old gentleman presents to the emergency room via EMS from home. He prefers to be called "Tatiana". The reason for visit is that patient has been increasingly weak today and just not acting himself according to his . He is normally more lively. She reports Tuesday he had watery stools. Last night he could not make it down the 3 steps to the living room as he usually does. He had to stop and sit on the second step. Normally he uses a wheelchair everywhere except transitioning down the steps to the living room. He has also been incontinent today he woke up early which is unusual. He did not drink his coffee today and has decreased oral intake. His blood sugar this morning was 66 at 0800. He then ate Cheerios, banana, cookie, and soup. Blood sugar corrected and was 162 for EMS. Patient's states he is currently undergoing work-up for possible bladder cancer. He had a CT scan performed at [facility]. We did check on the results of this and it has not been read yet. He is scheduled to have cystoscopy with Dr. Barros tomorrow. In discussing this further as well as his medications, it was discovered that his has been holding diltiazem rather than Xarelto in preparation for this procedure. This was accidental noncompliance with medications due to misunderstanding. He has hypertensive today which may be explained by the holding of diltiazem. Patient has known dementia for which she is being treated medically. Patient denies any pain. He is alert and conversational. He is oriented to person and age but not day or date. Allergies and Home Medications Allergies Coded Allergies: NKANo Known Allergies (Verified Allergy, Unknown, 01/03/06) Patient Home Medication List Home Medication List Reviewed: Yes Ascorbate Calcium (Vitamin C) 500 Mg Tablet, 500 MG PO DAILY, (Reported) Entered as Reported by: CLEMENTINA YOUNG on 05/22/211513 Aspirin (Aspirin EC) 81 Mg Tablet.dr, 81 MG PO DAILY, (Reported) Entered as Reported by: CLEMENTINA OYUNG on 05/22/211512 C,E,Zinc,Copper 24/Om3/Lut/Claus (Ocuvite Adult 50 Plus Softgel) 1 Each Capsule, 1 EACH PO DAILY, (Reported) Entered as Reported by: CLEMENTINA YOUNG on 05/22/211513 Cholecalciferol (Vitamin D3) (Vitamin D3) 50 Mcg Capsule, 1,000 MCG PO BID, (Reported) Entered as Reported by: CLEMENTINA YOUNG on 05/22/211513 Diltiazem HCl (Cartia Xt) 240 Mg Cap.er.24h, 240 MG PO HS, (Reported) Entered as Reported by: CHEKO BAKNS on 04/06/17 100 Donepezil HCl (Donepezil HCl) 10 Mg Tablet, 10 MG PO HS, (Reported) Entered as Reported by: CHEKO BANKS on 04/06/17 100 Furosemide (Furosemide) 20 Mg Tablet, 20 MG PO BID, (Reported) Entered as Reported by: CLEMENTINA YOUNG on 05/22/211513 Insulin Detemir (Levemir Flextouch) 100 Unit/1 Ml Insuln.pen, 37 UNIT SQ HS, (Reported) Entered as Reported by: NYDIA BILL on 01/28/17 121 Magnesium Oxide (Magnesium Oxide) 500 Mg Tablet, 500 MG PO DAILY, (Reported) Entered as Reported by: NYDIA BILL on 01/28/17 121 Memantine HCl (Memantine HCl) 10 Mg Tablet, 10 MG PO BID, (Reported) Entered as Reported by: CHEKO BANKS on 04/06/17 100 Metformin HCl (Metformin HCl ER) 500 Mg Tab.er.24h, 500 MG PO BID, (Reported) Entered as Reported by: CHEKO BANKS on 04/06/17 100 Tamsulosin HCl (Flomax) 0.4 Mg Cap, 0.4 MG PO DAILY, (Reported) Entered as Reported by: CLEMENTINA YOUNG on 05/22/21 151 Tolterodine Tartrate (Tolterodine Tartrate) 2 Mg Tablet, 2 MG PO BID, (Reported) Entered as Reported by: CLEMENTINA YOUNG on 05/22/21 151 Tramadol HCl (Tramadol HCl) 50 Mg Tablet, 50 MG PO TID PRN for PAIN-MODERATE (5- 7), (Reported) Entered as Reported by: CLEMENTINA YOUNG on 05/22/211513 Zinc (Zinc) 50 Mg Tablet, 50 MG PO DAILY, (Reported) Entered as Reported by: CLEMENTINA YOUNG on 05/22/211513 Review of Systems Review of Systems Constitutional: see HPI EENTM: no symptoms reported Respiratory: no symptoms reported Cardiovascular: see HPI Gastrointestinal: see HPI Genitourinary: see HPI Musculoskeletal: no symptoms reported Past Dkvpcvt-Ziyyrk-Ozijcn Hx Patient Social History Tobacco Use?: No Substance use?: No Alcohol Use?: No Pt feels they are or have been: No Immunizations Up To Date Tetanus Booster (TDap): More than 5yrs Seasonal Allergies Seasonal Allergies: No Past Medical History Surgeries: Yes (CABG) Cardiac, CABG, Eye Surgery Respiratory: No Cardiac: Yes Atrial Fibrillation, Coronary Artery Disease, High Cholesterol, Hypertension, Peripheral Vascular Neurological: Yes Dementia Reproductive Disorders: No Sexually Transmitted Disease: No HIV/AIDS: No Genitourinary: Yes Benign Prostatic Hyperpl, Prostate Problems Gastrointestinal: No Musculoskeletal: Yes (LUMBAR SPINAL STENOSIS. unable to ambulate without assistance) Chronic Back Pain Endocrine: Yes Diabetes, Insulin dep Cataract Hearing Impairment: Hard of Hearing, Hearing Aide Right, Hearing Aide Left Cancer: Yes Skin, Melanoma Did You Recieve Any Treatments: Yes What Type of Treatment Did You: Chemotherapy, Surgical Intervention, Other Psychosocial: No Integumentary: Yes (skin cancer) Blood Disorders: No Adverse Reaction/Blood Tranf: No Family Medical History Diabetes mellitus 19 MOTHER G8 SISTER FH: bladder cancer G8 SISTER FH: lupus G8 SISTER Heart Disease, Cancer, Diabetes, Hypertension Physical Exam Vital Signs Vital Signs - First Documented 09/06/21 12:32 Temp 36.7 Pulse 82 Resp 14 B/P (MAP) 150/75 (100) Pulse Ox 95 O2 Delivery Room Air Capillary Refill : Less Than 3 Seconds Height, Weight, BMI Height: 6'0" Weight: 212lbs. 0.0oz. [id number]; 27.00 BMI Method:Stated General Appearance: No Apparent Distress, WD/WN HEENT: PERRL/EOMI, Other (Oropharynx dry) Neck: Normal Inspection Respiratory: Lungs Clear, Normal Breath Sounds, No Accessory Muscle Use Cardiovascular: Regular Rate, Rhythm, No Edema, No Murmur Gastrointestinal: Normal Bowel Sounds, Non Tender, Soft Extremity: Normal Inspection, No Pedal Edema Neurologic/Psychiatric: Alert, No Motor/Sensory Deficits, Normal Mood/Affect, specimen processor II-XII Norm as Tested, Other (Generalized weakness with no focal deficit. Disoriented to month and date.) Skin: Normal Color, Warm/Dry Progress/Results/Core Measures Suspected Sepsis SIRS Temperature: Pulse: 82 Respiratory Rate: 14 Laboratory Tests 09/06/21 12:32: White Blood Count 14.5H Blood Pressure 150 /75 Mean: 100 Laboratory Tests 09/06/21 12:32: Creatinine 0.91, Platelet Count 355, Total Bilirubin 0.3 Results/Orders Lab Results Laboratory Tests Test 09/06/21 12:32 09/06/21 15:20 Range/Units White Blood Count 14.5 H 4.3-11.0 10^3/uL Red Blood Count 4.49 4.30-5.52 10^6/uL Hemoglobin 12.6 L 13.3-17.7 g/dL Hematocrit 39 L 40-54 % Mean Corpuscular Volume 86 80-99 fL Mean Corpuscular Hemoglobin 28 25-34 pg Mean Corpuscular Hemoglobin Concent 33 32-36 g/dL Red Cell Distribution Width 15.7 H 10.0-14.5 % Platelet Count 355 130-400 10^3/uL Mean Platelet Volume 9.9 9.0-12.2 fL Immature Granulocyte % (Auto) 1 % Neutrophils (%) (Auto) 73 42-75 % Lymphocytes (%) (Auto) 17 12-44 % Monocytes (%) (Auto) 8 0-12 % Eosinophils (%) (Auto) 1 0-10 % Basophils (%) (Auto) 1 0-10 % Neutrophils # (Auto) 10.6 H 1.8-7.8 10^3/uL Lymphocytes # (Auto) 2.4 1.0-4.0 10^3/uL Monocytes # (Auto) 1.1 H 0.0-1.0 10^3/uL Eosinophils # (Auto) 0.2 0.0-0.3 10^3/uL Basophils # (Auto) 0.1 0.0-0.1 10^3/uL Immature Granulocyte # (Auto) 0.1 0.0-0.1 10^3/uL Neutrophils % (Manual) 75 % Lymphocytes % (Manual) 18 % Monocytes % (Manual) 6 % Eosinophils % (Manual) 1 % Anisocytosis SLIGHT Sodium Level 140 135-145 MMOL/L Potassium Level 3.7 3.6-5.0 MMOL/L Chloride Level 110 H 98-107 MMOL/L Carbon Dioxide Level 19 L 21-32 MMOL/L Anion Gap 11 5-14 MMOL/L Blood Urea Nitrogen 15 7-18 MG/DL Creatinine 0.91 0.60-1.30 MG/DL Estimat Glomerular Filtration Rate 80 BUN/Creatinine Ratio 16 Glucose Level 164 H 70-105 MG/DL Calcium Level 7.7 L 8.5-10.1 MG/DL Corrected Calcium 8.6 8.5-10.1 MG/DL Magnesium Level 1.5 L 1.6-2.4 MG/DL Total Bilirubin 0.3 0.1-1.0 MG/DL Aspartate Amino Transf (AST/SGOT) 15 5-34 U/L Alanine Aminotransferase (ALT/SGPT) 15 0-55 U/L Alkaline Phosphatase 72 40-136 U/L Troponin I < 0.028 <0.028 NG/ML C-Reactive Protein High Sensitivity 0.57 H 0.00-0.50 MG/DL Total Protein 5.4 L 6.4-8.2 GM/DL Albumin 2.9 L 3.2-4.5 GM/DL Urine Color DARK YELLOW Urine Clarity CLEAR Urine pH 7.0 5-9 Urine Specific [place] 1.015 L 1.016-1.022 Urine Protein NEGATIVE NEGATIVE Urine Glucose (UA) NEGATIVE NEGATIVE Urine Ketones NEGATIVE NEGATIVE Urine Nitrite NEGATIVE NEGATIVE Urine Bilirubin NEGATIVE NEGATIVE Urine Urobilinogen 0.2 < = 1.0 MG/DL Urine Leukocyte Esterase NEGATIVE NEGATIVE Urine RBC (Auto) NEGATIVE NEGATIVE Urine RBC 0-2 /HPF Urine WBC NONE /HPF Urine Crystals NONE /LPF Urine Bacteria NEGATIVE /HPF Urine Casts NONE /LPF Urine Mucus NEGATIVE /LPF Urine Culture Indicated NO My Orders Orders - OLAYINKA DYER MD Cbc With Automated Diff (09/06/21 12:43) Comprehensive Metabolic Panel (09/06/21 12:43) Hs C Reactive Protein (09/06/21 12:43) Magnesium (09/06/21 12:43) Ua Culture If Indicated (09/06/21 12:43) Monitor-Rhythm Ecg Trace Only (09/06/21 12:46) Ekg Tracing (09/06/21 12:46) Troponin I (09/06/21 12:49) Manual Differential (09/06/21 12:32) Magnesium 1 Gm/100 Ml Ivpb (Magnesium Martinez (09/06/21 13:30) Lactated Ringers (Lr 1000 Ml Iv Solution (09/06/21 14:00) Medications Given in ED Current Medications Medications Dose Ordered Sig/Yenny Route Start Time Stop Time Status Last Admin Dose Admin Lactated Ringer's 1,000 ml @ 0 mls/hr Q0M ONCE IV 09/06/21 14:00 09/06/21 14:01 DC 09/06/21 14:34 0 MLS/HR Magnesium Sulfate/ Dextrose 100 ml @ 100 mls/hr ONCE ONCE IV 09/06/21 13:30 09/06/21 14:29 DC 09/06/21 13:40 100 MLS/HR Vital Signs/I&O 09/06/21 12:32 Temp 36.7 Pulse 82 Resp 14 B/P (MAP) 150/75 (100) Pulse Ox 95 O2 Delivery Room Air Capillary Refill : Less Than 3 Seconds Blood Pressure Mean: 100 Progress Note : Progress Note Patient was hydrated with 1500 mL in IV fluids. Magnesium was given by IV replacement. WBC was elevated which is chronic. Urine no longer showed any sign of infection. expresses concern that his current status would not allow for safe care at home. She will be caring for him by herself this week and she does not think it is possible to handle him in his current state. Patient was ultimately admitted to the hospital after discussion with Dr. Mosley. Patient's exacerbation of hypertension was likely secondary to withholding the diltiazem. This noncompliance was accidental due to confusion regarding preprocedural instructions. Patient's reports he is a DO NOT RESUSCITATE status. ECG Initial ECG Impression Date: Sep 06, 2021 Initial ECG Impression Time: 12:53 Initial ECG Rate: 79 Initial ECG Rhythm: Normal Sinus Comment Normal sinus rhythm with no ST elevation or depression. No abnormal intervals or axis deviation. Departure Communication (Admissions) Time/Spoke to Admitting Phy: 17:20 Dr. Mosley Impression Primary Impression: Altered mental status Qualified Codes: R41.82 - Altered mental status, unspecified Additional Impressions: Generalized weakness Hypertension Qualified Codes: I10 - Essential (primary) hypertension Hypomagnesemia Noncompliance with medication regimen Disposition: ADMITTED INPATIENT Condition: Stable Admissions Decision to Admit Reason: Admit from ER (General) Decision to Admit/Date: Sep 06, 2021 Time/Decision to Admit Time: 17:00 Departure-Patient Inst. Referrals: SHEILA TIAN MD (PCP/Family) Primary Care Physician Copy Copies To 1: SHEILA TIAN MD; CLAUDINE CRUZ MD, JOSHUA T MD Sep 06, 2021 17:36
[2021-09-06 20:16] VITALS: BP 186/83
[2021-09-06] MEDS ORDERED: ONDANSETRON 4 MG/2 ML (SDV) Z0FRAN IVP PRN (20:30)
[2021-09-06] MEDS: LACTATED RINGERS 1,000 ML IV SCH (21:46)
[2021-09-06] MEDS ORDERED: MEMANTINE 10 MG (NAMENDA) TABLET PO ONE (22:00)
[2021-09-06] MEDS ORDERED: metFORMIN XR 500 MG (GLUCOPHAGE XR) TAB PO NR ×2 (22:00→22:15)
[2021-09-06] MEDS ORDERED: DONEPEZIL 10 MG (ARICEPT) TAB PO NR ×2 (22:00→22:15)
[2021-09-06] MEDS ORDERED: TOLTERODINE LA 2 MG (DETROL LA) CAP PO ONE (22:00)
[2021-09-06] MEDS ORDERED: MEMANTINE 10 MG (NAMENDA) TABLET PO NR (22:15)
[2021-09-06] MEDS ORDERED: TOLTERODINE LA 2 MG (DETROL LA) CAP PO NR (22:15)
[2021-09-06 23:30] VITALS: BP 179/76
[2021-09-07] MEDS ORDERED: ATOR40TA70 PO (00:53)
[2021-09-07] MEDS ORDERED: CETI10TA49 PO (01:01)
[2021-09-07] MEDS ORDERED: RIVA20TA PO (01:01)
[2021-09-07 04:00] VITALS: BP 162/69
[2021-09-07 06:22] LABS: BASOPHILS # (AUTO) 0.1 10^3/uL (0.0-0.1); BASOPHILS % (AUTO) 1 % (0-10); EOSINOPHILS # (AUTO) 0.3 10^3/uL (0.0-0.3); EOSINOPHILS % (AUTO) 2 % (0-10); HEMATOCRIT 41 % (40-54); HEMOGLOBIN 13.2 g/dL (13.3-17.7); LYMPHOCYTES # (AUTO) 3.2 10^3/uL (1.0-4.0); LYMPHOCYTES % (AUTO) 23 % (12-44); MEAN CORPUSCULAR HEMOGLOBIN 28 pg (25-34); MEAN CORPUSCULAR HGB CONC 32 g/dL (32-36); MEAN CORPUSCULAR VOLUME 86 fL (80-99); MEAN PLATELET VOLUME 9.6 fL (9.0-12.2); MONOCYTES # (AUTO) 1.6 10^3/uL (0.0-1.0); MONOCYTES % (AUTO) 11 % (0-12); NEUTROPHILS # (AUTO) 8.7 10^3/uL (1.8-7.8); NEUTROPHILS % (AUTO) 63 % (42-75); PLATELET COUNT 344 10^3/uL (130-400); WHITE BLOOD COUNT 13.9 10^3/uL (4.3-11.0)
[2021-09-07 06:37] LABS: POTASSIUM 3.7 MMOL/L (3.6-5.0)
[2021-09-07 06:38] LABS: CALCIUM 9.2 MG/DL (8.5-10.1)
[2021-09-07 06:43] LABS: CREATININE SERUM 1.1 MG/DL (0.60-1.30)
[2021-09-07] MEDS ORDERED: PATIENT MAY USE OWN MEDS, ALL MC SCH (06:45)
[2021-09-07 08:00] VITALS: BP 162/77
[2021-09-07] MEDS: MAGNESIUM OXIDE (MAG-OX)400 MG TAB PO SCH ×2 (08:25→18:30)
--- NOTE | 2021-09-07 08:44 | History & Physical ---
History of Present Illness History of Present Illness Reason for visit/HPI THE PATIENT IS AN 81 Y/O MALE WHO IS WELL KNOWN TO ME FROM CLINIC. HE PRESENTED TO THE HOSPITAL EMERGENCY DEPARTMENT DUE TO PROGRESSIVE WEAKNESS. PER UBALDO - HIS , HE WAS NOT FEELING WELL FOR A FEW DAYS - HAD LOOSE STOOLS, AND WAS NOT EATING OR DRINKING WELL FOR THE PAST 24 - 48 HOURS PRIOR TO ADMISSION. HE WAS SUPPOSED TO HAVE A CYSTOSCOPE IN DR. CRUZ'S OFFICE ON TUESDAY - AND SHE HAD BEEN HOLDING HIS CARDIZEM FOR THE PROCEDURE, NOT UNDERSTANDING THAT THEY WERE SUPPOSED TO HOLD HIS ANTICOAGULATION - XARELTO - INSTEAD. HIS BLOOD PRESSURE WAS ELEVATED ON EVALUATION IN THE ER AND HE WAS ADMITTED FOR DEHYDRATION, AND HYPERTENSIVE URGENCY. Date of Admission Sep 06, 2021 at 17:25 Date Seen by a Provider: Sep 07, 2021 Time Seen by a Provider: 08:15 Attending Physician SHEILA ACEVES MD Admitting Physician Sheila Aceves MD Consult DR. CRUZ Allergies and Home Medications Allergies Coded Allergies: Brennen Known Allergies (Verified Allergy, Unknown, 01/03/06) Patient Home Medication List Home Medication List Reviewed: Yes Ascorbate Calcium (Vitamin C) 500 Mg Tablet, 1,000 MG PO BID, (Reported) Entered as Reported by: JAIRON RIZVI on 09/07/21 0952 Last Action: Reviewed Aspirin (Aspirin EC) 81 Mg Tablet., 81 MG PO DAILY, (Reported) Entered as Reported by: CLEMENTINA YOUNG on 05/22/21 1513 Last Action: Reviewed Atorvastatin Calcium (Atorvastatin Calcium) 40 Mg Tablet, 40 MG PO 1900, (Reported) Entered as Reported by: SONAM GUTIERREZ on 09/07/21 0053 Last Action: Reviewed C,E,Zinc,Copper 24/Om3/Lut/Claus (Ocuvite Adult 50 Plus Softgel) 1 Each Capsule, 1 EACH PO DAILY, (Reported) Entered as Reported by: CLEMENTINA YOUNG on 05/22/21 1514 Last Action: Reviewed Cefdinir (Cefdinir) 300 Mg Capsule, 300 MG PO BID, (Reported) Entered as Reported by: JAIRON RIZVI on 09/07/21 1008 Last Action: Reviewed Cetirizine HCl (Zyrtec) 10 Mg Tablet, 10 MG PO DAILY, (Reported) Entered as Reported by: SONAM GUTIERREZ on 09/07/21 0101 Last Action: Reviewed Cholecalciferol (Vitamin D3) (Vitamin D3) 50 Mcg Capsule, 1,000 MCG PO BID, (Reported) Entered as Reported by: CLEMENTINA YOUNG on 05/22/211513 Last Action: Reviewed Cyanocobalamin (Cyanocobalamin Injection) 1,000 Mcg/Ml Inj, 1,000 MCG IM ONCE MONTHLY, (Reported) Entered as Reported by: JAIRON RIZVI on 09/07/21 1015 Last Action: Reviewed Diltiazem HCl (Cartia Xt) 240 Mg Cap.er.24h, 240 MG PO 1900, (Reported) Entered as Reported by: CHEKO BANKS on 04/06/171007 Last Action: Reviewed Docusate Sodium (Docusate Sodium) 100 Mg Capsule, 100 MG PO DAILY PRN for CONSTIPATION-1ST LINE, (Reported) Entered as Reported by: JAIRON RIZVI on 09/07/21 100 Last Action: Reviewed Donepezil HCl (Donepezil HCl) 10 Mg Tablet, 10 MG PO 1900, (Reported) Entered as Reported by: CHEKO BANKS on 04/06/171007 Last Action: Reviewed Furosemide (Furosemide) 20 Mg Tablet, 20 MG PO DAILY, (Reported) Entered as Reported by: CLEMENTINA YOUNG on 05/22/211513 Last Action: Reviewed Insulin Detemir (Levemir Flextouch) 100 Unit/1 Ml Insuln.pen, 37 UNIT SQ HS, (Reported) Entered as Reported by: NYDIA BILL on 01/28/17 1216 Last Action: Reviewed Magnesium Oxide (Magnesium Oxide) 250 Mg Tablet, 250 MG PO BID, (Reported) Entered as Reported by: JAIRON RIZVI on 09/07/21 0949 Last Action: Reviewed Memantine HCl (Memantine HCl) 10 Mg Tablet, 10 MG PO BID, (Reported) Entered as Reported by: CHEKO BANKS on 04/06/171007 Last Action: Reviewed Metformin HCl (Metformin HCl ER) 500 Mg Tab.er.24h, 500 MG PO BID, (Reported) Entered as Reported by: CHEKO BANKS on 04/06/171007 Last Action: Reviewed Rivaroxaban (Xarelto) 20 Mg Tablet, 20 MG PO 1900, (Reported) Entered as Reported by: SONAM GUTIERREZ on 09/07/21 0101 Last Action: Reviewed Tamsulosin HCl (Flomax) 0.4 Mg Cap, 0.4 MG PO DAILY, (Reported) Entered as Reported by: CLEMENTINA YOUNG on 05/22/211513 Last Action: Reviewed Tolterodine Tartrate (Tolterodine Tartrate) 2 Mg Tablet, 2 MG PO BID, (Reported) Entered as Reported by: CLEMENTINA YOUNG on 05/22/211513 Last Action: Reviewed Tramadol HCl (Tramadol HCl) 50 Mg Tablet, 50 MG PO BID PRN for PAIN-MODERATE (5- 7), (Reported) Entered as Reported by: CLEMENTINA YOUNG on 05/22/211513 Last Action: Reviewed Zinc (Zinc) 50 Mg Tablet, 50 MG PO DAILY, (Reported) Entered as Reported by: CLEMENTINA YOUNG on 05/22/211513 Last Action: Reviewed Discontinued Medications Ascorbate Calcium (Vitamin C) 500 Mg Tablet, 500 MG PO DAILY, (Reported) Discontinued Reason: No Longer Taking Entered as Reported by: CLEMENTINA YOUNG on 05/22/211513 Last Action: Discontinued Magnesium Oxide (Magnesium Oxide) 500 Mg Tablet, 500 MG PO DAILY, (Reported) Discontinued Reason: Prescription changed Entered as Reported by: NYDIA BILL on 01/28/17 1216 Past [id number] Hx Patient Social History Marrital Status: Living Status: LIVES AT HOME WITH SPOUSE Employed/Student: retired Tobacco Use?: No Smoking Status: Former Smoker Use of E-Cig and/or Vaping dev: No Substance use?: No Alcohol Use?: No Pt feels they are or have been: No Immunizations Up To Date Date of Influenza Vaccine: Aug 17, 2016 First/Initial COVID19 Vaccinat: UNKNOWN Second COVID19 Vaccination Leoncio: STATES HAS BOTH VACCINES Tetanus Booster (TDap): Unknown Hepatitis A: No Hepatitis B: No Date of Pneumonia Vaccine: Jul 15, 2015 Seasonal Allergies Seasonal Allergies: No Current Status Advance Directives: Yes Advance Directive Location: Scanned into EMR Communicates: Verbally Primary Language: Armenian Preferred Spoken Language: Armenian Is interpretation needed?: No Sensory deficits: Hearing impairment Implanted or Applied Medical D: None Past Medical History Surgeries: Cardiac, CABG, Eye Surgery Atrial Fibrillation, Coronary Artery Disease, High Cholesterol, Hypertension, Peripheral Vascular Dementia Sexually Transmitted Disease: No HIV/AIDS: No Benign Prostatic Hyperpl, Prostate Problems Chronic Back Pain Diabetes, Insulin dep Cataract Hearing Impairment: Hard of Hearing, Hearing Aide Right, Hearing Aide Left Skin, Melanoma Did You Recieve Any Treatments: Yes What Type of Treatment Did You: Chemotherapy, Surgical Intervention, Other Blood Disorders: No Adverse Reaction/Blood Tranf: No HTN, HLD, CABG, PVD Family Medical History Reviewed and Corrections made Diabetes mellitus 19 MOTHER G8 SISTER FH: bladder cancer G8 SISTER FH: lupus G8 SISTER Heart Disease, Cancer, Diabetes, Hypertension Review of Systems Constitutional: No chills, No fever; malaise, weakness EENTM: hearing loss; No hoarseness, No throat pain Respiratory: No cough, No dyspnea on exertion, No short of breath Cardiovascular: No chest pain, No palpitations Gastrointestinal: No abdominal pain; diarrhea; No nausea, No vomiting Genitourinary: frequency, hematuria (RECENT - BUT NOT CURRENTLY), incontinence Musculoskeletal: back pain, muscle weakness Skin: no symptoms reported Psychiatric/Neurological: Denies Anxiety, Denies Depressed; Weakness, Other (DEMENTIA WITH CONFUSION) All Other Systems Reviewed Negative Unless Noted: Yes Physical Exam Vital Signs Vital Signs - First Documented 09/06/21 12:32 Temp 36.7 Pulse 82 Resp 14 B/P (MAP) 150/75 (100) Pulse Ox 95 O2 Delivery Room Air Capillary Refill : Less Than 3 Seconds Height, Weight, BMI Height: 6'0" Weight: 212lbs. 0.0oz. 96.928904wg; 27.47 BMI Method:Stated General Appearance: No Apparent Distress, WD/WN HEENT: PERRL/EOMI, Pharynx Normal Neck: Full Range of Motion, Non Tender, Supple Respiratory: Chest Non Tender, Lungs Clear, Normal Breath Sounds, No Accessory Muscle Use, No Respiratory Distress Cardiovascular: Regular Rate, Rhythm, Systolic Murmur Gastrointestinal: Normal Bowel Sounds, No Organomegaly, No Pulsatile Mass, Non Tender, Soft Rectal: Deferred Back: Normal Inspection, No Vertebral Tenderness Extremity: Normal Capillary Refill, Normal Inspection, Non Tender, No Calf Tenderness, No Pedal Edema Neurologic/Psychiatric: Alert, Normal Mood/Affect, Other (ORIENTED TO PERSON, PLACE, NOT TIME) Skin: Normal Color, Warm/Dry Lymphatic: No Adenopathy Assessment/Plan Assessment and Plan DEHYDRATION HYPERTENSIVE URGENCY CHRONIC ATRIAL FIBRILLATION CHRONIC ANTICOAGULATION HEMATURIA 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 HEMATURIA - DEFER TO DR. CRUZ - PLANNING ON BEDSIDE CYSTOSCOPE TOMORROW - PENDING THAT OUTCOME, WILL LIKELY BE ABLE TO DISCHARGE VERSUS KEEPING PT ONE MORE DAY. 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
[2021-09-07] MEDS ORDERED: MAGN250T35 PO (09:49)
[2021-09-07] MEDS ORDERED: ASCO-262 PO (09:52)
[2021-09-07] MEDS ORDERED: DOCU100C37 PO (10:05)
[2021-09-07] MEDS ORDERED: CEFD300C3 PO (10:08)
[2021-09-07] MEDS: LACTATED RINGERS 1,000 ML IV SCH ×2 (10:15→23:45)
[2021-09-07] MEDS ORDERED: CNC1KV IM (10:15)
[2021-09-07] MEDS: ASPIRIN E.C. 81 MG (ECOTRIN) TAB PO SCH (10:15)
[2021-09-07] MEDS: CETIRIZINE HCL 10 MG PO SCH (11:24)
[2021-09-07] MEDS: TOLTERODINE TARTRATE 2 MG PO SCH ×2 (11:24→20:54)
[2021-09-07] MEDS: TAMSULOSIN 0.4 MG (FLOMAX) CAP PO SCH (11:25)
[2021-09-07] MEDS: FUROSEMIDE 20 MG (LASIX) TAB PO SCH (11:26)
[2021-09-07] MEDS: metFORMIN XR 500 MG (GLUCOPHAGE XR) TAB PO SCH ×2 (11:26→20:54)
[2021-09-07] MEDS: MEMANTINE 10 MG (NAMENDA) TABLET PO SCH ×2 (11:27→20:54)
[2021-09-07 12:00] VITALS: BP 159/78
--- NOTE | 2021-09-07 14:52 | CONSULTATION REPORT ---
DATE OF SERVICE: 09/07/2021 ATTENDING PHYSICIAN: Dr. Aceves. SUMMARY: After reviewing the patient's record in the hospital and in the office, this is an 81-year-old man, the patient of mine for quite some time, has seen in the office in 08/2018, complaining of gross hematuria. He was not on any antibiotics. He was on aspirin and Xarelto. I told his to have him hold aspirin and Xarelto because of the bleeding. We got a CT scan of the abdomen and pelvis that was done in [place] and it was essentially negative for capellan. He was supposed to come today for cystoscopy at the office. He was admitted because of dehydration secondary to significant diarrhea and lack of p.o. intake. The had stopped aspirin, but instead of stopping the Xarelto, she stopped the Cartia, so the Xarelto was held yesterday on admission and will be held today pending cystoscopy tomorrow. History and physical was reviewed and unchanged from my examination and history. IMPRESSION: Gross hematuria. PLAN: Cystoscopy tomorrow at bedside, flexible local, was fully explained to the patient and his and all their questions were answered. The Cartia was resumed by Dr. Aceves. Job ID: [id number] DocumentID: [id number] Dictated Date: 09/07/2021 12:39:31 Ditching Machine Operating Engineer Date: 09/07/2021 14:51:44 Dictated By: CLAUDINE CRUZ MD
[2021-09-07 16:02] VITALS: BP 174/81
[2021-09-07] MEDS ORDERED: DONEPEZIL 10 MG (ARICEPT) TAB PO SCH (19:00)
[2021-09-07 19:57] VITALS: BP 146/70
[2021-09-07 23:45] VITALS: BP 105/70
[2021-09-08 04:03] VITALS: BP 150/69
[2021-09-08] MEDS ORDERED: LIDOCAINE UROJET 2% GEL 10 ML PKG ONE (07:06)
--- NOTE | 2021-09-08 07:32 | Progress Note-Post Operative ---
Post-Operative Progess Note Surgeon (s)/Coil Machine Operator (s) Surgeon CLAUDINE CRUZ MD Coil Machine Operator: NONE Pre-Operative Diagnosis GROSS HEMATURIA Post-Operative Diagnosis SAME Procedure & Operative Findings Date of Procedure 09/08/21 Procedure Performed/Findings CYSTOSCOPY Anesthesia Type LOCAL Estimated Blood Loss Estimated blood loss (mL): NONE Specimens/Packing Specimens Removed NONE Packing: NONE CLADUINE CRUZ MD Sep 08, 2021 07:32
--- NOTE | 2021-09-08 07:32 | Progress Note-Pre Operative ---
Pre-Operative Progress Note H&P Reviewed The H&P was reviewed, patient examined and no changes noted. Date Seen by Provider: Sep 08, 2021 Time Seen by Provider: 07:31 Date H&P Reviewed: Sep 08, 2021 Time H&P Reviewed: 07:31 Pre-Operative Diagnosis: GROSS HEMATURIA CLAUDINE CRUZ MD Sep 08, 2021 07:31
[2021-09-08 08:02] VITALS: BP 137/71
[2021-09-08] MEDS: ASPIRIN E.C. 81 MG (ECOTRIN) TAB PO SCH (09:14)
[2021-09-08] MEDS: MAGNESIUM OXIDE (MAG-OX)400 MG TAB PO SCH (09:14)
[2021-09-08] MEDS: MEMANTINE 10 MG (NAMENDA) TABLET PO SCH (09:15)
[2021-09-08] MEDS: TAMSULOSIN 0.4 MG (FLOMAX) CAP PO SCH (09:16)
[2021-09-08] MEDS: metFORMIN XR 500 MG (GLUCOPHAGE XR) TAB PO SCH (09:16)
[2021-09-08] MEDS: TOLTERODINE TARTRATE 2 MG PO SCH (09:17)
[2021-09-08] MEDS: CETIRIZINE HCL 10 MG PO SCH (09:17)
[2021-09-08] MEDS: FUROSEMIDE 20 MG (LASIX) TAB PO SCH (09:18)
--- NOTE | 2021-09-08 10:41 | Discharge Summary ---
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 DIARRHEA Discharge Summary Procedures: BEDSIDE CYSTOSCOPE Consultations DR CRUZ Discharge Physical Examination Allergies: Coded Allergies: NKANo Known Allergies (Verified Allergy, Unknown, 01/03/06) Vitals & I&Os Vital Signs Date Time Temp Pulse Resp B/P (MAP) Pulse Ox O2 Delivery O2 Flow Rate FiO2 09/08/21 11:28 36.6 85 20 154/67 (96) 94 Room Air General Appearance: Alert, Cooperative, Other (ORIENTED TO PERSON, PLACE, NOT TIME) HEENT: Atraumatic, PERRLA, Mucous Memb Moist/[address] Respiratory: Clear to Auscultation, Normal Air Movement Cardiovascular: Regular Rate Abdominal: Normal Bowel Sounds, Soft Extremities: No Clubbing, No Cyanosis Skin: No Rashes Neuro: Normal Speech Psych/Mental Status: Mental Status NL, Mood NL Hospital Course Was the Problem List Reviewed?: Yes DEHYDRATION HYPERTENSIVE URGENCY CHRONIC ATRIAL FIBRILLATION CHRONIC ANTICOAGULATION HEMATURIA 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 CRUZ - BEDSIDE CYSTOSCOPE TODAY WAS CLEAR PER HIS VERBAL REPORT - WE WILL DC PT TO HOME AND RESTART BLOOD THINNERS, IF HE RE-BLEEDS WILL HAVE TO STOP HIS ANTICOAGULATION. 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 WEAKNESS - NEEDS HOME HEALTH THERAPY ON DC DC TO HOME TODAY WITH ORDERS FOR NURSING, PT/OT Pending Labs Laboratory Tests 09/08/21 06:56: Glucometer 210 Discharge Condition at discharge STABLE Instructions to patient/family Please see electronic discharge instructions given to patient. Discharge Medications Reviewed and agree with Discharge Medication list on patient's Discharge Instruction sheet SHEILA TIAN MD Sep 08, 2021 10:41
--- NOTE | 2021-09-08 10:47 | D/C HH Face to Face Order ---
D/C Face to Face Orders Reconcile Patient Problems Problems Reviewed?: Yes Instructions for Patient HOME HEALTH OF PT'S CHOICE - ALREADY SET UP WITH [facility] Patient Instructions/FollowUp: 1 WK FOLLOW UP WITH ASMITA MCKEON MAKE APPT FOR FOLLOW UP WITH DR. CRUZ IN THE NEXT 2 WEEKS Physician to follow Patient: ASMITA Discharge Diet for Home: ADA Diet Patient Problems: DEHYDRATION HYPERTENSIVE URGENCY CHRONIC ATRIAL FIBRILLATION CHRONIC ANTICOAGULATION HEMATURIA Goals for Patient: IMPROVED STRENGTH Patient Data-Allergies,Ht & Wt Patient Allergies: Coded Allergies: NKANo Known Allergies (Verified Allergy, Unknown, 01/03/06) Height (Feet): 6 Height (Inches): 0 Weight (Pounds): 212 Weight (Ounces): 0.0 Home Health Need/Face to Face Date of Face to Face: Sep 08, 2021 Clinical Findings: Generalized weakness and fatigue, Muscle weakness, Unsteady gait I have seen Pt [id number]: Yes Discharged To: Home Diagnosis/Conditions: DEHYDRATION HYPERTENSIVE URGENCY CHRONIC ATRIAL FIBRILLATION CHRONIC ANTICOAGULATION HEMATURIA Patient is Homebound due to: CognItive deficits, Claudette fall risk due to instabilty, Muscle weakness Homebound Status Due to the above stated illness, injury or surgical procedure (medical condition or diagnosis) and associated clinical findings, the patient is homebound because of his/her inability to leave home except with aid of a supportive device and/or person AND leaving the home requires a considerable and taxing effort or is medically contraindicated. Pt req the following assistanc: Walker, Wheelchair Home Health Nursing Orders Home Health Services Order: Nursing Services, Poultry Barn Manager-Evaluate & Treat, Physical Therapy-Evaluate & Treat CBC, CMP IN ONE WEEK FROM DC Therapy Orders Therapy Orders: Physical Therapy, PT to assess for OT Therapy Specific Orders: Teach strategies/cognitive deficits, Teach enviro modifications/safety, Increase strength/endurance Certify Stmt I certify that this patient is under my care and that I, a nurse practitioner or a physician; a fitness assistant working with me, had a face to face encounter that - meets the physician face to face encounter requirements with this patient as dated. HSEILA TIAN MD Sep 08, 2021 10:47
[2021-09-08 11:28] VITALS: BP 154/67
--- NOTE | 2021-09-08 15:37 | OPERATIVE REPORT ---
DATE OF SERVICE: 09/08/2021 PREOPERATIVE DIAGNOSIS: Gross hematuria. POSTOPERATIVE DIAGNOSIS: Gross hematuria. OPERATION PERFORMED: Cystoscopy. SURGEON: Mike Cruz MD ANESTHESIA: Local. COMPLICATIONS: None. DESCRIPTION OF PROCEDURE: With the patient supine in his bed, genitalia were prepped and draped in the usual sterile fashion. Urethra was infiltrated with lidocaine jelly and a penile clamp was applied. This was then removed and a flexible cystoscope was introduced under vision. The anterior urethra was normal. The prostate was small and not causing much obstruction, hyperemic. Bladder neck was open. The bladder was carefully inspected. There were some trabeculations, no foreign body, bladder tumor or stone visualized. No carcinoma in situ area or cystitis. Ureteric orifices, clear effluxes bilaterally. Cystoscopy was confirmed in an antegrade fashion and the cystoscope was removed. The patient tolerated the procedure and anesthesia well and remained in his bed in stable condition after pulling his foreskin over the glans. PLAN: If the patient develops again gross hematuria, then at that time we will do a rigid cystoscopy in the operating room and this was explained to the patient and his . Job ID: [id number] DocumentID: [id number] Dictated Date: 09/08/2021 10:03:39 Bolt Header Date: 09/08/2021 15:36:56 Dictated By: MIKE CRUZ MD
== END 2021-09-08 15:20 | disposition home health service (06) | DRG 641 ==
LOC: EDUNIT# 12:30 → ER 12:31 → 4TH 17:25
PROVIDERS: ADMIT Family Medicine; ATTEND Family Medicine
PROC: 0TJB8ZZ Inspection of Bladder, Via Natural or Artificial Opening Endoscopic (ICD-10-PCS; principal; 2021-09-08 11:00)
DX: E86.0 Dehydration (principal); I48.20 Chronic atrial fibrillation, unspecified; I16.0 Hypertensive urgency; R31.0 Gross hematuria; F01.50 Vascular dementia, unspecified severity, without behavioral disturbance, psychotic disturbance, mood disturbance, and anxiety; G30.9 Alzheimer's disease, unspecified; F02.80 Dementia in other diseases classified elsewhere, unspecified severity, without behavioral disturbance, psychotic disturbance, mood disturbance, and anxiety; Z66 Do not resuscitate; I25.10 Atherosclerotic heart disease of native coronary artery without angina pectoris; E78.00 Pure hypercholesterolemia, unspecified; E11.9 Type 2 diabetes mellitus without complications; E83.42 Hypomagnesemia; R53.1 Weakness; M48.061 Spinal stenosis, lumbar region without neurogenic claudication; H91.90 Unspecified hearing loss, unspecified ear; Z85.820 Personal history of malignant melanoma of skin; Z92.21 Personal history of antineoplastic chemotherapy; Z87.891 Personal history of nicotine dependence; Z79.01 Long term (current) use of anticoagulants; Z79.4 Long term (current) use of insulin; Z79.84 Long term (current) use of oral hypoglycemic drugs; Z79.82 Long term (current) use of aspirin; Z79.899 Other long term (current) drug therapy; Z97.4 Presence of external hearing-aid; Z91.14 Patient's other noncompliance with medication regimen
CPT/HCPCS: 36415; 80048; 80053; 81000; 82947; 83735; 84484; 85007; 85025; 85027; 86141; 93005